=== PATIENT | male | born 1965 | race Caucasian/White ===

== ENCOUNTER 2020-02-14 01:41 | Outpatient (CLI) | payer OTHER, SELFPAY ==
[2020-02-14 18:59] LABS: SARS-CoV-2 RNA PCR Negative
== END 2020-02-14 01:42 | disposition home or self-care (01) ==
LOC: ANHCOVIDDT 01:42
PROVIDERS: Visit Provider Internal Medicine Cardiovascular Disease
DX: Z01.818 Encounter for other preprocedural examination (principal); Z20.828 Contact with and (suspected) exposure to other viral communicable diseases
CPT/HCPCS: 87635; C9803; U0003

== ENCOUNTER 2020-02-18 01:18 | Day surgery (SDC) | payer OTHER, SELFPAY ==
[2020-02-17 14:36] VITALS: BMI 29.0
[2020-02-18] VITALS (7 sets, daily range): BP systolic 121–140; BP diastolic 66–92; PULSE 50–79; RESP 14–25; TEMP 36.2–36.7; O2SAT 95–99; BMI 29.4
[2020-02-18 09:23] LABS: Anion Gap 6 mmol/L (8-16); Blood Urea Nitrogen 15 mg/dL (9-20); Calcium 9.2 mg/dL (8.4-10.2); Carbon Dioxide 30 mmol/L (22-30); Chloride 100 mmol/L (98-107); Estimated CRCL calculation 120 ml/min; Estimated Glomerular Filt Rate > 60; Glucose 111 mg/dL (75-110); Sodium 136 mmol/L (137-145)
--- NOTE | 2020-02-18 09:56 | WPDANESEPPF ---
Anes - Initial Pre Proc Eval Procedure: Operation Date: 02/18/20 10:00 Proposed Procedures p Trans Esophageal Echo - Denilson Florez MD s Electrical Cardioversion - Denilson Florez MD Date/Time: 02/18/20 09:56 Surgeon: Denilson Florez MD Pre Op Diagnosis: AFib Patient Data Age: 54 Gender: M Height: 6 ft 1 in Weight: 101.2 kg Last Vital Signs Temp 98.0 F 02/18/20 09:00 Pulse 72 02/18/20 09:00 Resp 16 02/18/20 09:00 BP 125/83 02/18/20 09:00 Pulse Ox 95 02/18/20 09:00 Allergies Allergy/AdvReac Type Severity Reaction Status Date / Time No Known Allergies Allergy Verified 02/17/20 14:45 Home Medications Medication Instructions Recorded Confirmed Type amlodipine-benazepril 1 cap PO HS 02/17/20 02/17/20 History aspirin 81 mg PO HS 02/17/20 02/17/20 History metoprolol tartrate 50 mg PO HS 02/17/20 02/17/20 History rivaroxaban [Xarelto] 20 mg PO QPM 02/17/20 02/17/20 History rosuvastatin 40 mg PO HS 02/17/20 02/17/20 History Laboratory Tests 02/18/20 09:02 Sodium 136 mmol/L L mmol/L (137-145) Potassium 4.0 mmol/L mmol/L (3.4-5.0) Chloride 100 mmol/L mmol/L (98-107) Carbon Dioxide 30 mmol/L mmol/L (22-30) Anion Gap 6 mmol/L L mmol/L (8-16) BUN 15 mg/dL mg/dL (9-20) Creatinine 0.70 mg/dL mg/dL (0.7-1.3) Estim Creat Clear Calc 120 ml/min ml/min Estimated GFR > 60 (59 - ) Glucose 111 mg/dL H mg/dL (75-110) Calcium 9.2 mg/dL mg/dL (8.4-10.2) Magnesium 2.0 mg/dL mg/dL (1.6-2.3) Patient hx anesthesia problems: none Family hx anesthesia problems: none [facility] Past Medical History Medical History (Updated 02/18/20 @ 09:56 by Elmer Rodas MD) Atrial fibrillation Diabetes Hyperlipidemia Hypertension AUGUSTO (obstructive sleep apnea) Social History Social History Years smoked: 5 Smoking status: Former smoker Tobacco type: cigarettes Smoking end date: 02/26/02 Alcohol intake: current Drinks per week: 10 Alcohol use details: beer and wine Substance use type: marijuana Living arrangements: with family Gender identity (if verbalized by the patient): Male Sexual Orientation (if Verbalized by the Patient): Straight or Heterosexual Spiritual care concerns: No Anes - Eval Final PreProcedure Day of Procedure 02/18/20 09:56 Patient weight: overweight Heart: regular rate and rhythm Lungs: clear to auscultation Airway: Mallampati scale class II Neurological: alert and oriented Last oral intake: >/= 8 hours ASA classification: III Emergent: no Anesthetic plan: proceed Anesthesia type and monitoring: general GIVS and standard monitoring Informed Consent: The patient's anesthetic plan and its attendant risks and benefits were discussed with the patient/family/POA. Questions were solicited and answers provided to the satisfaction of the patient/family/POA.
--- NOTE | 2020-02-18 09:57 | WPDHPUPDATE1 ---
History and Physical Update Update Date/Time: 02/18/20 09:57 History and Physical has been reviewed, including an updated exam of the patient. There are NO changes in the patient's condition. Risks, benefits, and alternatives have been discussed and questions answered. Patient agrees to proceed with procedure.
--- NOTE | 2020-02-18 09:57 | WPDTECDV ---
STARLA with Cardioversion Date of procedure: 02/18/20 Procedure Type: Transesophageal echocardiogram guided elective electrical cardioversion Diagnosis: Atrial fibrillation Indications: Atrial fibrillation Description of Procedure: Brief history present illness: Patient is a pleasant 54-year-old male with a history of CAD, hypertension, dyslipidemia, AUGUSTO on CPAP, and diabetes mellitus with recent diagnosis symptomatic atrial fibrillation with fatigue, shortness of breath, chest pain and lightheadedness despite rate control referred for transesophageal echocardiogram-guided elective electrical cardioversion in attempt to restore sinus rhythm. Procedure in detail: After verbal and written informed consent was obtained the patient risks, benefits, and alternatives explained in detail the patient agreed to proceed with the plan of care as outlined above. Patient was evaluated at bedside in the PACU . On examination, neck was supple with normal range of motion, no restrictions to opening of the oral cavity, jaw angle and posterior hypopharynx was clear. Lungs were clear to auscultation. Patient was placed in appropriate 30 to 45 degree angle in a supine, slight left lateral decubitus position. Patient was monitored throughout the study with telemetry, oxygen saturation, end-tidal CO2 monitoring, blood pressure, heart rate, and respirations. Anterior and posterior defibrillator pads placed in the appropriate positions. The posterior hypopharynx was then locally anesthetized using repeated administration of Hurricaine spray as well as gargled viscous lidocaine. After the oral bite block placed and adequate anesthesia administered by Anesthesiology, the transesophageal echocardiogram probe was advanced through the oral bite block, into the posterior hypopharynx and into the esophagus easily and without complication. Multiple, multiplanar echocardiographic images were obtained in multiple standard re-projections. Pulsed wave, continuous-wave, and color-flow Doppler were utilized in conjunction with this study. At the conclusion of the study, the transesophageal echocardiogram probe was removed easily and without complication. Patient tolerated the procedure well without difficulty. Patient was in atrial fibrillation throughout the study. Sedation: Moderate Sedation/Anesthesia administration: Patient denied previous intolerance or complications with anesthesia/sedation. Please see Anesthesiology documentation for sedation protocol and details. There were no other issues or complications and patient tolerated the procedure well and sedation protocol well and I was present for the entirety. Anesthesiology was responsible for periprocedural monitoring and sedation administration. Findings: Findings: Left ventricular and right ventricular size and systolic function within normal limits with visually estimated left ventricular ejection fraction of 55% without wall motion abnormality. Mild concentric left ventricular hypertrophy noted. Mild to moderate enlargement of the left atrium with preserved right atrial size noted. Interatrial septum anatomically normal without evidence of shunt with color-flow Doppler nor with injection of agitated saline. Mitral and tricuspid valve are anatomically normal with normal leaflet excursion. Mild tricuspid regurgitation with 2 separate regurgitant jets identified. Trivial tricuspid regurgitation. Unable to estimate RVSP due to poor spectral resolution of tricuspid regurgitant jet velocity. Minimal mitral annular calcification. No mobile elements identified. Aortic valve was anatomically normal 3 leaflet structure with normal leaflet excursion and trivial regurgitation. Pulmonic valve was not well visualized, however, trivial regurgitation was identified. Left atrial appendage was an anatomically normal structure with prominent pectinate muscles without thrombus or vegetation identified. Left atrial appendage velocities averaged approximat
--- NOTE | 2020-02-18 10:22 | ECG_ITS ---
Measurements Intervals [place] Rate: 60 P: NM: 0 QRS: 41 QRSD: 103 T: 21 QT: 404 QTc: 405 Interpretive Statements ATRIAL FIBRILLATION ABNORMAL ECG Electronically Signed On 02-18-2020 10:53:07 [employer] by Nithin Cho D.O.
--- NOTE | 2020-02-18 10:28 | ECG_ITS ---
Measurements Intervals [place] Rate: 48 P: 13 IN: 159 QRS: 40 QRSD: 105 T: 31 QT: 449 QTc: 405 Interpretive Statements SINUS BRADYCARDIA ABNORMAL ECG Electronically Signed On 02-20-2020 10:59:56 [employer] by Nithin Cho D.O.
--- NOTE | 2020-02-18 12:01 | SUR.PHASEII ---
1200 Reviewed d/c instructions with patient, questions answered, he verbalized understanding, Pt transported [facility] via wheelchair where his girlfriend picked him up and drove him home in a private vehicle.
== END 2020-02-18 12:00 | disposition home or self-care (01) ==
PROVIDERS: PCP Nurse Practitioner Family; Visit Provider Internal Medicine Cardiovascular Disease
PROC: (CPT 93312; principal; 2020-02-18 10:00)
PROC: 5A2204Z Restoration of Cardiac Rhythm, Single (ICD-10-PCS; 2020-02-18 10:00)
DX: I48.91 Unspecified atrial fibrillation (principal); R06.02 Shortness of breath; R07.9 Chest pain, unspecified; R53.83 Other fatigue; I25.10 Atherosclerotic heart disease of native coronary artery without angina pectoris; I10 Essential (primary) hypertension; E78.5 Hyperlipidemia, unspecified; G47.33 Obstructive sleep apnea (adult) (pediatric); E11.9 Type 2 diabetes mellitus without complications; Z79.01 Long term (current) use of anticoagulants; Z79.82 Long term (current) use of aspirin; Z87.891 Personal history of nicotine dependence
CPT/HCPCS: 36415; 80048; 83735; 92960; 93005; 93312; 93320; 93325; J2704; J7040

== ENCOUNTER 2022-09-22 02:11 | Day surgery (SDC) | payer OTHER, SELFPAY ==
[2022-09-15 15:25] VITALS: BMI 31.6
--- NOTE | 2022-09-21 15:06 | PM.HPGS ---
History of Present Illness History of Present Illness Consent: Risks, benefits, and alternatives have been discussed and questions answered. Patient agrees to proceed with procedure. Chief complaint: Hx of colon polyps Narrative: Dario Hammond is a 57 year old male Referred for colon cancer screening. He has had a polyp removed in the past. Review of Systems Review of Systems: All systems reviewed & are unremarkable except as noted in HPI and below PMFSH Past Medical History Medical History Atrial fibrillation Diabetes Hyperlipidemia Hypertension AUGUSTO (obstructive sleep apnea) Social History Social History Smoking packs per day: 1 Smoking cigarettes per day: 20.0 Years smoked: 20 Smoking pack-years: 20.00 Smoking status: Former smoker Tobacco type: cigarettes Smoking end date: 02/26/02 Alcohol intake: current Drinks per week: 6 Alcohol use details: BEERS/DRINKS Substance use: never Substance use type: does not use Living arrangements: with family Gender identity (if verbalized by the patient): Male Sexual Orientation (if Verbalized by the Patient): Straight or Heterosexual Spiritual care concerns: No Meds Home Medications and Allergies Home Medications Medication Instructions Recorded Confirmed Type amlodipine 10 mg-benazepril 20 mg 1 cap PO HS 02/17/20 09/22/22 History capsule aspirin 81 mg tablet 81 mg PO HS 02/17/20 09/22/22 History metoprolol tartrate 50 mg tablet 50 mg PO HS 02/17/20 09/22/22 History rivaroxaban 20 mg tablet (Xarelto) 20 mg PO QPM 02/17/20 09/22/22 History rosuvastatin 40 mg tablet 40 mg PO HS 02/17/20 09/22/22 History omega-3 fatty acids 1 cap PO DAILY 09/15/22 09/22/22 History omeprazole 20 mg capsule,delayed 20 mg PO 4XW 09/15/22 09/22/22 History release tadalafil 20 mg tablet (Cialis) 20 mg PO DAILY PRN Erectile 09/15/22 09/22/22 History Dysfunction Allergies Allergy/AdvReac Type Severity Reaction Status Date / Time No Known Allergies Allergy Verified 09/22/22 06:46 Exam Const: General: alert Orientation/consciousness: patient oriented x3 Resp: Auscultation: clear to auscultation bilaterally Cardio: Rhythm: regular rhythm GI: GI Palp: Yes Soft to palpation and No Tenderness to palpation present (GI) Neuro: General: patient oriented x3 Assessment and Plan Assessment and plan (1) Colon cancer screening: Code(s): Z12.11 - Encounter for screening for malignant neoplasm of colon Status: Acute Assessment and Plan: Colonoscopy with possible biopsy or polypectomy or cautery or injection of substances.
[2022-09-22 06:48] VITALS: BP 151/103; PULSE 66; RESP 20; TEMP 36.2; BMI 32.2
[2022-09-22] MEDS: LACTATED RINGERS 1,000 ML 150 ML IV CONT (06:51)
--- NOTE | 2022-09-22 07:45 | P.PNAN_ITS ---
Anes - Initial Pre Proc Eval Procedure: Operation Date: 09/22/22 08:00 Proposed Procedures p Colonoscopy - Lloyd De Anda MD Date/Time: 09/22/22 07:45 Surgeon: Lloyd De Anda MD Pre Op Diagnosis: Hx of colon polyps Patient Data Age: 57 Gender: M Height: 1.85 m Weight: 110.9 kg Last Vital Signs Temp 97.2 F L 09/22/22 06:48 Pulse 66 09/22/22 06:48 Resp 20 09/22/22 06:48 BP 151/103 H 09/22/22 06:48 O2 Del Method Room Air 09/22/22 06:48 Allergies Allergy/AdvReac Type Severity Reaction Status Date / Time No Known Allergies Allergy Verified 09/22/22 06:46 Home Medications Medication Instructions Recorded Confirmed Type amlodipine 10 mg-benazepril 20 mg 1 cap PO HS 02/17/20 09/22/22 History capsule aspirin 81 mg tablet 81 mg PO HS 02/17/20 09/22/22 History metoprolol tartrate 50 mg tablet 50 mg PO HS 02/17/20 09/22/22 History rivaroxaban 20 mg tablet (Xarelto) 20 mg PO QPM 02/17/20 09/22/22 History rosuvastatin 40 mg tablet 40 mg PO HS 02/17/20 09/22/22 History omega-3 fatty acids 1 cap PO DAILY 09/15/22 09/22/22 History omeprazole 20 mg capsule,delayed 20 mg PO 4XW 09/15/22 09/22/22 History release tadalafil 20 mg tablet (Cialis) 20 mg PO DAILY PRN Erectile 09/15/22 09/22/22 History Dysfunction Patient hx anesthesia problems: none Family hx anesthesia problems: none Results Review: All pre-operative results and documents have been reviewed as part of the pre- operative evaluation. [facility] Past Medical History Medical History Atrial fibrillation Diabetes Hyperlipidemia Hypertension AUGUSTO (obstructive sleep apnea) Social History Social History Smoking packs per day: 1 Smoking cigarettes per day: 20.0 Years smoked: 20 Smoking pack-years: 20.00 Smoking status: Former smoker Tobacco type: cigarettes Smoking end date: 02/26/02 Alcohol intake: current Drinks per week: 6 Alcohol use details: BEERS/DRINKS Substance use: never Substance use type: does not use Living arrangements: with family Gender identity (if verbalized by the patient): Male Sexual Orientation (if Verbalized by the Patient): Straight or Heterosexual Spiritual care concerns: No Anes - Eval Final PreProcedure Day of Procedure 09/22/22 07:45 Patient weight: normal Heart: regular rate and rhythm Lungs: clear to auscultation Airway: Mallampati scale class III Neurological: alert and oriented Last oral intake: >/= 8 hours ASA classification: III Emergent: no Anesthetic plan: proceed Anesthesia type and monitoring: general GIVS and standard monitoring Results Review: All pre-operative results and documents have been reviewed as part of the pre- operative evaluation. Informed Consent: The patient's anesthetic plan and its attendant risks and benefits were discussed with the patient/family/POA. Questions were solicited and answers provided to the satisfaction of the patient/family/POA.
[2022-09-22 08:19] VITALS: BP 115/84; PULSE 62; RESP 18; O2SAT 99
[2022-09-22 08:29] VITALS: BP 121/70; PULSE 61; RESP 24; O2SAT 99
[2022-09-22 08:39] VITALS: BP 135/86; PULSE 58; RESP 22; O2SAT 96
== END 2022-09-22 08:42 | disposition home or self-care (01) ==
PROVIDERS: PCP Nurse Practitioner Family; Visit Provider Internal Medicine Gastroenterology
PROC: 0DJD8ZZ Inspection of Lower Intestinal Tract, Via Natural or Artificial Opening Endoscopic (ICD-10-PCS; CPT 45378; principal; 2022-09-22 08:00)
DX: Z12.11 Encounter for screening for malignant neoplasm of colon (principal); Z86.010 Personal history of colon polyps; I48.91 Unspecified atrial fibrillation; I10 Essential (primary) hypertension; E78.5 Hyperlipidemia, unspecified; E11.9 Type 2 diabetes mellitus without complications; G47.33 Obstructive sleep apnea (adult) (pediatric); Z87.891 Personal history of nicotine dependence; Z79.01 Long term (current) use of anticoagulants; Z79.82 Long term (current) use of aspirin
CPT/HCPCS: 45378; J2704; J7120

== ENCOUNTER 2023-05-29 08:47 | Outpatient (CLI) | payer OTHER, SELFPAY ==
[2023-05-29 09:34] LABS: Hematocrit 45.4 % (42.0-52.0); Hemoglobin 15.8 g/dL (14.0-18.0); Mean Corpuscular HGB Conc 34.8 g/dl (32-36); Mean Corpuscular Hemoglobin 30.3 pg (26-34); Mean Corpuscular Volume 87.1 fl (80-100); Platelet Count Result 210 k/mm3 (150-375); Red Blood Count 5.21 M/mm3 (4.6-6.20); Red Cell Distribution Width 12.7 % (11.5-14.5); White Blood Count 7.5 K/mm3 (4.5-10.0)
[2023-05-29 09:43] LABS: Hemoglobin A1C 6.6 % (<5.7)
[2023-05-29 09:51] LABS: Alanine Aminotransferase 65 U/L (6-50); Albumin Level 4.5 g/dL (3.5-5.1); Alkaline Phosphatase 78 U/L (38-126); Anion Gap 7 mmol/L (4-12); Aspartate Amino Transferase 59 U/L (17-59); Bilirubin,Total 0.7 mg/dL (0.2-1.3); Blood Urea Nitrogen 8 mg/dL (9-20); Calcium 9.3 mg/dL (8.4-10.2); Carbon Dioxide 28 mmol/L (22-30); Chloride 102 mmol/L (98-107); Cholesterol 124 mg/dL (0-200); Estimated Glomerular Filt Rate > 60; Glucose 126 mg/dL (65-110); HDL Direct 49 mg/dL; Potassium 3.9 mmol/L (3.4-5.0); Sodium 137 mmol/L (137-145); Triglycerides 83 mg/dL (<150); Uric Acid 4.3 mg/dL (3.5-8.5)
[2023-05-29 10:02] LABS: LDL Cholesterol Direct 63 mg/dL
[2023-06-01 16:40] LABS: PSA, Total 0.2 ng/mL (<=4.0)
== END 2023-05-29 08:48 | disposition home or self-care (01) ==
PROVIDERS: PCP Nurse Practitioner Family; Visit Provider Nurse Practitioner Family
DX: M10.9 Gout, unspecified (principal); Z13.29 Encounter for screening for other suspected endocrine disorder; Z13.1 Encounter for screening for diabetes mellitus; Z13.220 Encounter for screening for lipoid disorders; Z12.5 Encounter for screening for malignant neoplasm of prostate; Z13.0 Encounter for screening for diseases of the blood and blood-forming organs and certain disorders involving the immune mechanism
CPT/HCPCS: 36415; 80053; 80061; 83036; 84153; 84154; 84443; 84550; 85027

== ENCOUNTER 2024-03-18 08:45 | Emergency (ER) | payer OTHER, SELFPAY ==
--- NOTE | 2024-03-18 08:51 | ED_ITS ---
HPI - URI/Sore Throat General Chief Complaint: Upper Respiratory Infection Stated Complaint: rt ear discomfort,cough,nasal drainage Time Seen by Provider: 03/18/24 08:51 Source: patient Mode of arrival: ambulatory Limitations: no limitations History of Present Illness HPI Narrative: Dario is a 58-year-old male patient presenting to the clinic today with complaints of right ear pain, cough, sore throat, and nasal drainage x3 days. He reports no known fever or chills. Denies any chest pain or shortness of breath. Cough is nonproductive. MD elicited complaint: sore throat and nasal congestion Related Data Home Medications ?Medication ?Instructions ?Recorded ?Confirmed ?Last Taken ?Type amlodipine 10 mg-benazepril 20 mg 1 cap PO HS 02/17/20 02/21/24 09/21/22 History capsule aspirin 81 mg tablet 81 mg PO HS 02/17/20 02/21/24 09/21/22 History rivaroxaban 20 mg tablet (Xarelto) 20 mg PO QPM 02/17/20 02/21/24 09/19/22 History rosuvastatin 40 mg tablet 40 mg PO HS 02/17/20 02/21/24 09/21/22 History tadalafil 20 mg tablet (Cialis) 20 mg PO DAILY PRN Erectile 09/15/22 02/21/24 09/21/22 History Dysfunction coenzyme Q10 100 mg tablet 100 mg PO DAILY 05/22/23 02/21/24 Unknown History nitroglycerin 0.4 mg sublingual 0.4 mg sublingual Q5M PRN 05/22/23 02/21/24 Unknown History tablet turmeric root extract 1,053 mg 2,250 mg PO DAILY 05/22/23 02/21/24 Unknown History tablet Allergies Allergy/AdvReac Type Severity Reaction Status Date / Time No Known Allergies Allergy Verified 03/18/24 09:01 Review of Systems Review of Systems: Pertinent positives per HPI. Patient denies any fever, chills, rash, headache, visual changes, dizziness, shortness of breath, chest pain, palpitations, nausea, vomiting, diarrhea, constipation, abdominal pain, or any urinary issues. [facility] Past Medical History Medical History Osteoarthritis, knee Screening for prostate cancer Gout Lipoma of arm CAD (coronary artery disease) Myocardial infarction due to atherothrombotic coronary artery disease Pain in left knee Chest pain Sleep apnea Vertigo Indigestion Stable angina AUGUSTO (obstructive sleep apnea) Hypertension Hyperlipidemia Diabetes Atrial fibrillation Surgical History Surgical History History of radiofrequency ablation (RFA) procedure for cardiac arrhythmia H/O colonoscopy 2018 rpt 5 years S/P left knee arthroscopy Family History Family History Father Diabetes mellitus Hypertension Heart disease Sibling Hypertension Cerebrovascular accident Grandparent Brain cancer Social History Social History Smoking packs per day: 1 Smoking cigarettes per day: 20.0 Years smoked: 20 Smoking pack-years: 20.00 Smoking status: Former smoker Tobacco type: cigarettes Smoking end date: 02/26/02 Alcohol intake: current Drinks per week: 6 Alcohol use details: BEERS/DRINKS Substance use: never Substance use type: does not use Do You Feel Safe in your Home?: Yes Lack of Transportation: No Lack of Food: Never True Current Housing: I Have Housing Concerned About Future Housing: No Difficulty Paying Gas/Electric Bills: No Difficulty Paying for Meds: No Currently Unemployed: No Education: Don't Know Difficulty w/ Childcare or Family Care: No Living arrangements: with family Gender identity (if verbalized by the patient): Male Sexual Orientation (if Verbalized by the Patient): Straight or Heterosexual Spiritual care concerns: No Comments At the time of my signature, I reviewed and agree with the nursing past medical, surgical, social, and family history. There is no relevant family history pertinent to the patient complaint. Exam Narrative: General: Well-developed, well nourished, in no apparent distress Head: Normocephalic, atraumatic Eyes: Pupils equally round and reactive to light bilaterally, EOM intact, sclera and conjunctive clear, no discharge, lids normal Ears: Left TMs intact, opaque, mild bulging, congested, right TM intact, bulging, red, ear canals clear, no drainage, grossly hearing normal. Nose: Nares patent, green nasal discharge, mild inflammation, no sinus tenderness. Mouth: Oral pharynx red without lesions or masses, good dentition, MMM. Postnasal drip Neck: Supple, trachea midline, no enlargement of anterior or posterior cervical nodes, no thyroid masses or goiter palpable. Cardio: Regular rate and rhythm, s1 and s2 normal, no murmur appreciated. Resp: Clear to auscultation bilaterally, no rhonchi, rales, wheezing or rubs Course Course Emergency Course: Portions of this record may have been created with voice recognition software. Level of Care: Express Care Visit Vital Signs Vital signs: Vital Signs Temperature 36.8 C 03/18/24 08:57 Pulse Rate 75 03/18/24 08:57 Respiratory Rate 18 03/18/24 08:57 Blood Pressure 146/90 H 03/18/24 08:57 Pulse Oximetry 98 03/18/24 08:57 Oxygen Delivery Room Air 03/18/24 08:57 Temperature 36.8 C 03/18/24 08:57 Pulse Rate 75 03/18/24 08:57 Respiratory Rate 18 03/18/24 08:57 Blood Pressure 146/90 H 03/18/24 08:57 Pulse Oximetry 98 03/18/24 08:57 Oxygen Delivery Room Air 03/18/24 08:57 Vital signs reviewed MDM - URI/Sore Throat MDM Narrative Medical decision making narrative: At the time of visit patient is resting comfortably on the exam table. Patient appears to be nontoxic. Plan: I suspect patient has URI/pharyngitis/right otitis media. Prescription for amoxicillin and prednisone was sent to the pharmacy. Supportive measures were discussed with the patient and they voiced understanding discharge instructions and agrees to treatment plan. Return precautions reviewed Differential Diagnosis Differential diagnosis: Likely upper respiratory infection, otitis media, sinusitis, viral infection, bronchitis, influenza, pharyngitis and other (COVID) Discharge Plan Discharge Clinical Impression: URI (upper respiratory infection) Qualifiers: URI type: unspecified URI Qualified Code(s): J06.9 - Acute upper respiratory infection, unspecified Otitis media Qualifiers: Otitis media type: suppurative Chronicity: acute Laterality: right Recurrence: non-recurrent Spontaneous tympanic membrane rupture: without spontaneous rupture Qualified Code(s): H66.001 - Acute suppurative otitis media without spontaneous rupture of ear drum, right ear Pharyngitis Qualifiers: Pharyngitis/tonsillitis etiology: unspecified etiology Qualified Code(s): J02.9 - Acute pharyngitis, unspecified Patient Disposition: Home, Self-Care Condition: Stable Instructions: Antibiotic Form, Pharyngitis (ED), Ear Infection (ED), Upper Respiratory Infection (ED) Additional Instructions: Take prescription medications only as prescribed-amoxicillin and prednisone Increase fluids and stay well hydrated Tylenol/motrin for pain/fever Flonase and OTC antihistamines as directed Vicks vapor rub to open sinuses Sinus rinses for congestion Cepacol spray, cough drops, throat lozenges, warm tea with honey/lemon, gargle salt water to soothe throat BRAT diet for diarrhea Clear liquids x 24 hours then advance as tolerated for nausea/vomiting Go to the ED if you develop a worsening in your condition- high fever not controlled by Tylenol or Motrin, dehydration, weakness, lethargy, shortness of breath, or chest pain. Follow up with your PCP in 3-5 days if symptoms persist. Patient Language: Prydeinig Prescriptions: New prednisone 20 mg tablet 40 mg PO DAILY 5 Days Qty: 10 0RF amoxicillin 875 mg tablet 875 mg PO Q12H 10 Days Qty: 20 0RF No Action oxycodone 5 mg tablet 5 mg PO Q8H PRN (Reason: pain) Qty: 20 0RF turmeric root extract 1,053 mg tablet 2,250 mg PO DAILY coenzyme Q10 100 mg tablet 100 mg PO DAILY nitroglycerin 0.4 mg tablet, sublingual 0.4 mg sublingual Q5M PRN Rx Instructions: do not exceed 3 doses per episode aspirin 81 mg Tablet 81 mg PO HS amlodipine-benazepril 10-20 mg Capsule 1 cap PO HS rosuvastatin 40 mg Tablet 40 mg PO HS Xarelto 20 mg Tablet 20 mg PO QPM tadalafil [Cialis] 20 mg Tablet 20 mg PO DAILY PRN (Reason: Erectile Dysfunction) Rx Instructions: administer approximately 30min before sexual activity; do not use more than 1 dose per 24hrs (DME) Blood Glucose Test Strip See Rx Instructions .Route Qty: 90 3RF Rx Instructions: Test fasting glucose daily and record (DME) blood-glucose meter Kit See Rx Instructions .Route Qty: 1 0RF Rx Instructions: Use to check fasting glucose daily and record (DME) lancets 33 gauge misc See Rx Instructions .Route Qty: 100 3RF Rx Instructions: Test fasting glucose daily and record allopurinol 100 mg tablet 100 mg PO DAILY Qty: 90 1RF Jardiance 10 mg tablet 10 mg PO DAILY Qty: 90 1RF Follow-up/Referrals: Val Menendez APRN [Primary Care Provider] - Time of Disposition: 09:02 Quality NIHSS Nursing Documentation ED NIHSS nursing documentation: reviewed/agree
[2024-03-18 08:57] VITALS: BP 146/90; PULSE 75; RESP 18; TEMP 36.8; O2SAT 98
--- OUTSIDE RECORDS SUMMARY | 2024-03-20 16:21 | XMS_ITS | Referral Summary ---
Author Organization 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 Name Role Phone Val Menendez [employer] Primary Care Provider + Lisa Carty NP Unavailable Allergies No known active allergies Medications amLODIPine-holly zepriL (LOTREL) 10-20 mg per capsule Take 1 capsule by mouth daily 02/11/2020 Active rosuvastatin (CRESTOR) 40 mg tablet Take 1 tablet (40 mg total) by mouth daily 12/16/2019 Active aspirin (Adult Low Dose Aspirin) 81 mg enteric coated tablet Take 1 tablet (81 mg total) by mouth daily 02/12/2020 Active celecoxib (CeleBREX) 200 mg capsule 02/09/2022 Active allopurinoL (ZYLOPRIM) 100 mg tablet Take 1 tablet (100 mg total) by mouth daily Active Xarelto 20 mg tablet TAKE 1 TABLET DAILY 90 tablet 3 05/21/2023 Active Active Problems Problem Noted Date Diagnosed Date Morbid (severe) obesity due to excess calories 0 05/03/2023 Other thrombophilia 05/03/2023 Chronic anticoagulation 08/17/2020 [place] on CPAP 08/17/2020 Medication side effects 04/12/2020 Status post ablation of atrial fibrillation 03/29 Atrial fibrillation ([facility]) 02/13/2020 Coronary artery disease 02/13/2020 Hypertension associated with diabetes 02/13/2020 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 2 diabetes mellitus ([facility]) 02/13/2020 Resolved Problems Problem Noted Date Diagnosed Date Resolved Date Mixed hyperlipidemia 02/23/2021 023 Dyslipidemia 08/17/2020 02/23/2021 Social History Tobacco Use Types Packs/Day Years Used Date Smoking Tobacco: Former Smokeless Tobacco: Never Alcohol Use Standard Drinks/Week Comments Yes 0 (1 standard drink = 0.6 oz pur e alcohol) Personal Safety Answer Date Recorded Getting School Help Needed Not on file 02/20 Sex and Gender Information Value Date Recorded Sex Assigned at Not on file Legal Sex Male 10:40 AM [employer] Gender Identity Not on file Sexual Orientation Not on file Last Filed Vital Signs Vital Sign Reading Time Taken Comments Blood Pressure 128/78 05/03/2023 9:21 AM [employer] Pulse 64 05/03/2023 9:21 AM [employer] Temperature 36.8 ??C (98.3 ??F) 04/23/2020 8:40 AM CS T Respiratory Rate 16 03/02/2021 3:36 PM [employer] Oxygen Saturation 97% 05/03/2023 9:21 AM [employer] Inhaled Oxygen Concentration - - Weight 122.2 kg (269 lb 6.4 oz) 05/03/2023 9:21 AM [employer] Height 185.4 cm (6' 1 ) 05/03/2023 9:21 AM [employer] Body Mass Index 35.54 05/03/2023 9:21 AM [employer] Plan of Treatment Not on file Medical Devices Implanted Type Area Performance Improvement Analyst Device Identifier Shelf Expiration Date Model / Serial / Lot [employer] [id number] System 6-12fr Mvp Venous Closure Vascade - [id number] - [id number] Implanted:Qty : 1 on 04/22/2020 by Hayder Feldman MD at [facility] Collagen Left: Femoral [employer] 03/03/2022 800-612C- 10U / [id number] / [id number] [employer] [id number] System 6-12fr Mvp Venous Closure Vascade - [id number] - [id number] Implanted:Qty : 1 on 04/22/2020 by Hayder Feldman MD at [facility] Collagen Left: Femoral [employer] 03/03/2022 800-612C- 10U / [id number] / [id number] [employer] [id number] System 6-12fr Mvp Venous Closure Vascade - [id number] - [id number] Implanted:Qty : 1 on 04/22/2020 by Hayder Feldman MD at [facility] Collagen Right: Femoral [employer] 03/03/2022 800-612C- 10U / [id number] / [id number] [employer] [id number] Device Closure Vascade Od5 Fr Femoral Artery - [id number] - [id number] Implanted:Qty : 1 on 04/22/2020 by Hayder Feldman MD at [facility] Collagen Right: Femoral [employer] 11/10/2021 [id number] -[id number] / [id number] / [id number] Procedures Procedure Name Priority Date/Time Associated Diagnosis Comments POCT LIPID PANEL Routine 05/03/2023 10:0 7 AM [employer] Coronary artery disease involving [place] coronary artery of [place]oksack heart without angina pectoris EGFR STAT 04/22/2020 7:23 AM [employer] from Last 3 Months or Most Recently Relevant to Health Maintenance Results * POCT lipid panel (05/03/2023 10:07 AM [employer]) Cholesterol, POC 124 mg/dL Comment:GLU = 157 HDL, POC 41 mg/dL Triglycerides, POC 121 mg/dL LDL Cholesterol POC 59 mg/dL Chol/HDL Ratio, POC 1.4 Non-HDL Cholesterol, POC 83 mg/dL Cholesterol Total, POC 124 mg/dL Capillary blood 05/03/2023 1 0:07 AM [employer] Denilson Florez MD POINT OF CARE TEST ORDER RAMON Final Result * eGFR (04/22/2020 7:23 AM [employer]) Pathologist [facility] eGFR 104 mL/min/1.7 3 m2 [facility] Comment: Interpretive Data Reference Interval Normal ?>/= 90 mL/min/1.73m2 Mildly decreased* ? 60 - 89 mL/min/1.73m2 Mildly to moderately decreased ?45 - 59 mL/min/1.73m2 Moderately to severely decreased ??30 - 44 mL/min/1.73m2 Severely decreased ?15 - 29 mL/min/1.73m2 Kidney Failure ?< 15 ??mL/min/1.73m2 *Relative to young adult level Estimated glomerular filtration rate is determined by the CKD-EPI equation recommended by the National Kidney Foundation (KDIGO 2012 Clinical Practice Guideline for the Evaluation and Management of Chronic Kidney Disease. Kidney Intnl Suppl Feb 2012;3:1). The CKD-EPI equation should not be used for patients with unstable renal function and has not been validated in children and those over 70. 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
--- OUTSIDE RECORDS SUMMARY | 2024-03-20 16:21 | XMS_ITS | Data Portability ---
Author Organization [facility], Main Office Address [address] [place] [address] Care Team Providers Care Belt Weaver Name Role Phone VAL BROOKS Primary Care Provider VAL BROOKS Referring Provider [phone] Assessment Encounter Date Assessment Date Assessment LastModified by Organization Details LastModified Time 02/15/2023 02/15/2023 D/w pt about his findings and further plan of care. Will do x-rays. Meds as directed. Ice pack as directed prn. RICE explained in detail. Advised to avoid any strenuous activities/lifting -pushing until cleared. Educated pt about alarming symptoms to monitor at home and call us back or get checked in ED. F/u in 2 weeks. [email or web address] Not available 02/15/2023 10:01:20 04/30/2023 04/30/2023 Assessment: Severe OSAHS, AHI = 36 PLMD Hypoventilation Plan: The following were reviewed and explained to the patient: primary care/referral note [facility] home sleep study 08/18/22 AHI = 36, supine AHI = 60 PAP compliance downloaded and interpreted x 20 minutes. Data reviewed and explained to the patient. Average apnea/hypopnea index (AHI) is 0.5. Patient used PAP > 4 hours 96% of the time. PAP is set at [id number]. PAP will be reset at 11-15 cmH2O. Oxygen supplementation: none Patient is benefiting from PAP therapy. Encouraged patient to maintain PAP use more than 70% of the time. Statement of PAP use and benefits will be sent to the home care store. Educated the patient on problems and solutions associated with positive airway pressure (PAP) use. Difficulty tolerating pressure, mask leaks, intolerance of interface, nasal congestion, claustrophobic response, dry mouth, and unintentional mask removal during sleep were covered. Dry mouth is a normal occurrence for people who just start out on PAP therapy because they are not used to air blowing in to the throat to hold open. Dry mouth is exacerbated for people who wear nasal PAP mask and whose jaw drops open during sleep. Not only does this create a much less efficient therapy because of leakage, it also causes dry mouth. There are a couple solutions to help prevent this type of problem. A simple solution would be to wear a chinstrap which essentially holds the jaw in place. A second solution would be a switch to a full face mask which covers both the nose and mouth. Although this is another easy solution, using a full face mask for some could seem claustrophobic or confining. There is no silver bullet solution as no single mask is right for everybody. Sometimes it takes a bit of experimentation to find a PAP mask which best meets the patient's needs as well as fits comfortably. Another tactic is to use a humidifier on your PAP machine. Most new PAP machines have integrated humidifiers. Humidification is joya when dealing with symptoms of dry mouth because the humidifier can supply both warm and room temperate air. Even a small amount of humidity in the airflow will help nasal passages to stay hydrated. If a person is using both a full face mask and a PAP machine with a heated humidifier and is still experiencing dry mouth, an ill-fitted PAP mask might be causing the problem. Leakage can be caused by a mask that is to large or small, the wrong style mask, the cushion is degraded or simply because the mask's straps aren't adjusted correctly. If leakage occurs, dry air from the room can leak in while humidification escapes. The result is reduced humidification within the circuit and resulting in dry throat and mouth. Finally, beyond factors involving the PAP machine and mask, dry mouth can also be caused or worsened by dehydration. The general recommendation to during eight 8 oz. glasses of water a day might be too little for many people. When people drink large amounts of coffee or other caffeine beverages, or sweat a lot during the day, making sure to rehydrate is an important part of PAP therapy. ResMed Air Sense 11 auto set unit with heated humidifier and supplies at 11-15 cmH2O ordered. Further titration will be based on clinical response. Provided the patient with a list of local home care stores where positive airway pressure (PAP) units, accoutrement, and services are available. Home care store selection is based on patient's insurance carrier. Patient will setup an appointment with [facility] for supplies and pressure adjustments. A major predictor of success with use of PAP is follow-up with both the respiratory supplier and the treating physician. The respiratory supplier optimally will follow-up within two weeks after starting use while the treating physician optimally will follow-up within 90 days after starting therapy to assess adherence and effectiveness of treatment. The download results can show the treating physician information about adherence to treatment, residual AHI while on treatment and presence of large mask leakage. This information is especially helpful if the patient has residual sleepiness despite treatment. General information on sleep disordered breathing, evaluation of sleep disordered breathing, treatment with PAP therapy, and living with PAP therapy were covered. We discussed with the patient the impact of weight on: Sleep disordered breathing Hypertension Hyperlipidemia CAD Transaminitis Gout Low back pain We discussed with the patient the benefit of PAP therapy on: Sleep disordered breathing Hypertension OK Atrial fibrillation Educated the patient on sleep hygiene measures. Relaxing rituals to rest easy, understanding foods with positive and negative impact on sleep, creating a peaceful sleep environment, timing of exercise, using herbal sleep aids, and practicing sleep-friendly meditation were covered. To determine how much sleep is needed, the patient will assess where he falls on the spectrum, examine what lifestyle factor such as stress is affecting the quality and quantity of sleep. In general, adults need 7-9 hours of sleep. Educated the patient regarding foods that promote sleep. These include but are not limited to cherries, bananas, toast, oatmeal, and warm milk. Educated the patient regarding foods and drinks to avoid before bedtime. These include but are not limited to aged cheese, chocolate, spicy foods, tomato-based sauces, soy, ginseng tea and processed meat. Advocated influenza vaccination annually and pneumonia vaccination in 2032. Advocated weight loss through diet and exercise. Patient's ideal body weight according to height and gender is up to 195 lbs. Encouraged patient to adjust caloric intake to maintain/achieve ideal body weight, emphasizing on fruits, vegetables, whole grains, and fat-free or low-fat products. These include lean meats, poultry, fish, beans, eggs, and nuts and foods that are low in saturated fats, trans-fats, cholesterol, salt (sodium), and glycemic index. Stressed the importance of regular exercise up to the patient's capacity limits. In this case, we recommend 20 min daily walking, 2 days a week of resistance training. Patient to monitor BP daily and bring records to PCP for further management. Follow-up: 3 months, July 2023 [email or web address] Not available 04/30/2023 10:16:49 Plan of Treatment Reminders Order Date Submit Date Provider Last Modified By Organization Details Last Modified Time Details Appointments None recorded. Lab None recorded. Referral None recorded. Procedures None recorded. Surgeries None recorded. Imaging home sleep study 2022 023 [email or web address] [facility], [address] [place] [address], [address], 4 12:57:08 XR, thoracic spine, 3 view 2022 023 [email or web address], [address] [place] [address] , [place], [address], 3 09:06:05 XR, lumbosacral spine, 4 or more view 2022 023 [email or web address] [address] [facility], [address] [place] [address] , [place], [address], 4 10:00:09 Medication Orders nitroglycer in 0.4 mg sublingual tablet 2022 023 [facility], [address] [place] [address], [address], 3 10:43:24 cyclobenzap rine 10 mg tablet 2022 023 [facility], [address] [place] [address], [address], 3 09:54:07 allopurinol 100 mg tablet 2022 023 [facility], [address] [place] [address], [address], 3 09:54:07 Medrol (Nick) 4 mg tablets in a dose pack 2022 023 [email or web address] [facility], [address] [facility], [place], [address], 12:53:38 Patient TargetsNo targets recorded. Patient Instructions Encounter Date Encounter Id Patient Instructions Last Modified By Organization Details Last Modified Time 06/08/2022 [id number] Fu Prn [email or web address] Not available 06/08 10:36:08 Reason for Referral None Reported. Results Created Date Observation Date Name Description Value Unit Range Abnormal Flag Note LastModifiedBy Organization Detail LastModifiedTime 02/10/20 22 02/09/2022 HEMOG LOBIN A1C HA1C 5.6 % 4.0-6. 0 Diabe jorden Scree chace Crite ezekiel: <5.7% Consi stent with absen ce of diabe jorden 5.7-6 .4% Consi stent with incre ased risk for diabe jorden (pred iabet es) >OR=6 .5% Consi stent with diabe jorden REFER ENCE: Diabe jorden Care 2016, 39(Aguiar ppl.1 ):s13 -s22 Not Available [facility] (Lab) [address] [place], [address], 02/09/2022 22:31:56 02/10/20 22 02/09/2022 PSA SCREE N PSA medicare screen 1.06 NG/mL 0.00-4 .00 Not Available [facility] (Lab) [address] [place], [address], 02/09/2022 21:58:48 02/10/20 22 02/09/2022 TSH W/REF DEEPTI FT4 TSH with reflex free T4 1.030 uIU/m L 0.465- 4.680 Not Available [facility] (Lab) [address] [place], [address], 02/09/2022 21:58:46 02/10/20 22 02/09/2022 COMPR EHENS LEANDRA METAB OLIC PANEL sodium 135 mmol/ L 137-14 5 low Not Available [facility] (Lab) [address] [place], [address], 02/09/2022 21:47:10 02/10/20 22 02/09/2022 COMPR EHENS LEANDRA METAB OLIC PANEL potassium 4.1 mmol/ L 3.5-5. 1 Not Available [facility] (Lab) [address] [place], [address], 02/09/2022 21:47:10 02/10/20 22 02/09/2022 COMPR EHENS LEANDRA METAB OLIC PANEL chloride 102 mmol/ L 98-107 Not Available [facility] (Lab) [address] [place], [address], 02/09/2022 21:47:10 02/10/20 22 02/09/2022 COMPR EHENS LEANDRA METAB OLIC PANEL carbon dioxide 25 mmol/ L 22-30 Not Available [facility] (Lab) [address] [place], [address], 02/09/2022 21:47:10 02/10/20 22 02/09/2022 COMPR EHENS LEANDRA METAB OLIC PANEL anion gap 12.1 mmol/ L 14-22 low Not Available [facility] (Lab) [address] [place], [address], 02/09/2022 21:47:10 02/10/20 22 02/09/2022 COMPR EHENS LEANDRA METAB OLIC PANEL glucose 110 mg/dL 70-99 high Not Available [facility] (Lab) [address] [place], [address], 02/09/2022 21:47:10 02/10/20 22 02/09/2022 COMPR EHENS LEANDRA METAB OLIC PANEL BUN 11 mg/dL 8-19 Not Available [facility] (Lab) [address] [place], [address], 02/09/2022 21:47:10 02/10/20 22 02/09/2022 COMPR EHENS LEANDRA METAB OLIC PANEL creatinine 0.64 mg/dL 0.66-1 .25 low Not Available [facility] (Lab) [address] [place], [address], 02/09/2022 21:47:10 02/10/20 22 02/09/2022 COMPR EHENS LEANDAR METAB OLIC PANEL GFR >60 Refer ence Range : [place] ge GFR Healt hy Adult : >60 mL/mi n/1.7 3 m2 Chron ic Kidne y Disea se: 15-60 mL/mi n/1.7 3 m2 Kidne y Failu re: <15/m L/min /1.73 m2 www.n iddk. nih.g ov The MDRD study equat ion has not been valid ated in child maddy <18 years of age; pregn ant women ; the elder ly >85 years of age; or in some racia l or ethni c subgr oups, such as Hispa nics. Outsi de the valid ated manny eters , estim ated GFR is less accur ate, requi ring clini sudarshan judgm ent on a case- by-ca se basis . Clini sudarshan inter preta tion for other races and ages must be made by the clini carina. The MDRD study equat ion has not been valid ated for the evalu ation of serum creat inine relat ed to nutri yaima l statu s or medic ation usage . For perso ns <18 years of age, a pedia tric GFR calcu lator is avail able on the [facility] websi te: https ://tray w.juvenal cannon.o rg/pr kennyess ional s/kdo qi/gf r_cal culat or Not Available [facility] (Lab) [address] [place], [address], 02/09/2022 21:47:10 02/10/20 22 02/09/2022 COMPR EHENS LEANDRA METAB OLIC PANEL alkaline phosphatase 85 U/L 38-126 Not Available [facility] (Lab) [address] [place], [address], 02/09/2022 21:47:10 02/10/20 22 02/09/2022 COMPR EHENS LEANDRA METAB OLIC PANEL alanine aminotransfe rase 58 U/L 0-50 high Not Available [facility] (Lab) [address] [place], [address], 02/09/2022 21:47:10 02/10/20 22 02/09/2022 COMPR EHENS LEANDRA METAB OLIC PANEL aspartate aminotransfe rase 47 U/L 15-46 high Not Available [facility] (Lab) [address] [place], [address], 02/09/2022 21:47:10 02/10/20 22 02/09/2022 COMPR EHENS LEANDRA METAB OLIC PANEL bilirubin, total 0.80 mg/dL 0.20-1 .30 Not Available [facility] (Lab) [address] [place], [address], 02/09/2022 21:47:10 02/10/20 22 02/09/2022 COMPR EHENS LENADRA METAB OLIC PANEL calcium 9.3 mg/dL 8.4-10 .2 Not Available [facility] (Lab) [address] [place], [address], 02/09/2022 21:47:10 02/10/20 22 02/09/2022 COMPR EHENS LEANDRA METAB OLIC PANEL total protein 7.8 g/dL 6.3-8. 2 Not Available [facility] (Lab) [address] [place], [address], 02/09/2022 21:47:10 02/10/20 22 02/09/2022 COMPR EHENS LEANDRA METAB OLIC PANEL albumin 4.6 g/dL 3.4-5. 0 Not Available [facility] (Lab) [address] [place], [address], 02/09/2022 21:47:10 02/10/20 22 02/09/2022 COMPR EHENS LEANDRA METAB OLIC PANEL globulin 3.2 g/dL 2.6-4. 2 Not Available [facility] (Lab) [address] [place], [address], 02/09/2022 21:47:10 02/10/20 22 02/09/2022 COMPR EHENS LEANDRA METAB OLIC PANEL A/G ratio 1.4 ratio 1.0-2. 0 Not Available [facility] (Lab) [address] [place], [address], 02/09/2022 21:47:10 02/10/20 22 02/09/2022 LIPID PANEL cholesterol 200 mg/dL 140-19 9 high NIH WILLIS NSUS RECOM MENDA TION FOR SALTY STERO L: ADULT CHILD LOW RISK: <200 <170 BORDE RLINE : <200- 239 ----- HIGH RISK: >240 >200 Not Available [facility] (Lab) [address] [place], [address], 02/09/2022 21:47:01 02/10/20 22 02/09/2022 LIPID PANEL triglyceride s 67 mg/dL 0-150 NIH WILLIS NSUS REPOR T RECOM MENDA TION FOR TRIGL YCERI ANTHONY: ADULT CHILD LOW RISK: <150 ----- BODER LINE: 150-1 99 ----- HIGH RISK: >200 ----- Not Available [facility] (Lab) [address] [place], [address], 02/09/2022 21:47:01 02/10/20 22 02/09/2022 LIPID PANEL HDL cholesterol 57 mg/dL 40- Not Available [facility] (Lab) [address] [place] [address], [address], 02/09/2022 21:47:01 02/10/20 22 02/09/2022 LIPID PANEL LDL cholesterol, calculated 130 mg/dL 0-130 NIH WILLIS NSUS REPOR T RECOM MENDA TIONS FOR LDL: ADULT CHILD LOW RISK <130 <110 (OPTI MAL LDL) <100 ----- BORDE RLINE : 130-1 59 ----- HIGH RISK: >160 >130 A TRIGL YCERI DE RESUL T >400 INVAL IDATE S THE CALCU LATIO N FOR LDL FRACT IONAT ION - THE LDL RESUL T WILL NOT BE REPOR EVE. Not Available [facility] (Lab) [address] [place], [address], 02/09/2022 21:47:01 02/10/20 22 02/09/2022 CBC/C OMPLE TE BLD COUNT W/DIF F white blood cells 5.0 x10'3 /uL 4.2-10 .8 Not Available [facility] (Lab) [address] [place], [address], 02/09/2022 21:21:24 02/10/20 22 02/09/2022 CBC/C OMPLE TE BLD COUNT W/DIF F red blood cells 5.20 x10'6 /uL 4.10-5 .80 Not Available [facility] (Lab) [address] [place], [address], 02/09/2022 21:21:24 02/10/20 22 02/09/2022 CBC/C OMPLE TE BLD COUNT W/DIF F hemoglobin 15.8 g/dL 13.2-1 7.0 Not Available [facility] (Lab) [address] [place], [address], 02/09/2022 21:21:24 02/10/20 22 02/09/2022 CBC/C OMPLE TE BLD COUNT W/DIF F hematocrit 48.2 % 39.3-5 0.0 Not Available [facility] (Lab) [address] [place], [address], 02/09/2022 21:21:24 02/10/20 22 02/09/2022 CBC/C OMPLE TE BLD COUNT W/DIF F mean red cell volume 92.7 fL 80.0-9 7.0 Not Available [facility] (Lab) [address] [place], [address], 02/09/2022 21:21:24 02/10/20 22 02/09/2022 CBC/C OMPLE TE BLD COUNT W/DIF F mean red cell hemoglobin 30.4 pg 27.0-3 3.0 Not Available [facility] (Lab) [address] [place], [address], 02/09/2022 21:21:24 02/10/20 22 02/09/2022 CBC/C OMPLE TE BLD COUNT W/DIF F mean RBC HGB concentratio n 32.8 g/dL 31.0-3 6.0 Not Available [facility] (Lab) [address] [place], [address], 02/09/2022 21:21:24 02/10/20 22 02/09/2022 CBC/C OMPLE TE BLD COUNT W/DIF F red cell distribution width 12.7 % 11.8-1 5.5 Not Available [facility] (Lab) [address] [place], [address], 02/09/2022 21:21:24 02/10/20 22 02/09/2022 CBC/C OMPLE TE BLD COUNT W/DIF F platelets 196 x10'3 /uL 150-40 0 Not Available [facility] (Lab) [address] [place], [address], 02/09/2022 21:21:24 02/10/20 22 02/09/2022 CBC/C OMPLE TE BLD COUNT W/DIF F mean platelet volume 11.1 fL 9.0-12 .4 Not Available [facility] (Lab) [address] [place], [address], 02/09/2022 21:21:24 02/10/20 22 02/09/2022 CBC/C OMPLE TE BLD COUNT W/DIF F neutrophils 50.5 % 39.0-7 2.0 Not Available [facility] (Lab) [address] [place], [address], 02/09/2022 21:21:24 02/10/20 22 02/09/2022 CBC/C OMPLE TE BLD COUNT W/DIF F lymphocytes 30.2 % 16.0-4 7.0 Not Available [facility] (Lab) [address] [place], [address], 02/09/2022 21:21:24 02/10/20 22 02/09/2022 CBC/C OMPLE TE BLD COUNT W/DIF F monocytes 16.3 % 5.0-12 .0 high Not Available [facility] (Lab) [address] [place], [address], 02/09/2022 21:21:24 02/10/20 22 02/09/2022 CBC/C OMPLE TE BLD COUNT W/DIF F eosinophils 1.8 % 1.0-7. 0 Not Available [facility] (Lab) [address] [place], [address], 02/09/2022 21:21:24 02/10/20 22 02/09/2022 CBC/C OMPLE TE BLD COUNT W/DIF F basophils 1.0 % 0.0-2. 0 Not Available [facility] (Lab) [address] [place], [address], 02/09/2022 21:21:24 02/10/20 22 02/09/2022 CBC/C OMPLE TE BLD COUNT W/DIF F immature granulocytes 0.2 % 0.00-0 .50 Not Available [facility] (Lab) [address] [place], [address], 02/09/2022 21:21:24 02/10/20 22 02/09/2022 CBC/C OMPLE TE BLD COUNT W/DIF F neutrophils, absolute count 2.54 x10'3 /uL 1.5-8. 0 Not Available [facility] (Lab) [address] [place], [address], 02/09/2022 21:21:24 02/10/20 22 02/09/2022 CBC/C OMPLE TE BLD COUNT W/DIF F lymphocytes, absolute count 1.52 x10'3 /uL 1.07-3 .43 Not Available [facility] (Lab) [address] [place], [address], 02/09/2022 21:21:24 02/10/20 22 02/09/2022 CBC/C OMPLE TE BLD COUNT W/DIF F monocytes, absolute count 0.82 x10'3 /uL 0.29-0 .99 Not Available [facility] (Lab) [address] [place], [address], 02/09/2022 21:21:24 02/10/20 22 02/09/2022 CBC/C OMPLE TE BLD COUNT W/DIF F eosinophils, absolute count 0.09 x10'3 /uL 0.02-0 .53 Not Available [facility] (Lab) [address] [place], [address], 02/09/2022 21:21:24 02/10/20 22 02/09/2022 CBC/C OMPLE TE BLD COUNT W/DIF F basophils, absolute count 0.05 x10'3 /uL 0.01-0 .08 Not Available [facility] (Lab) [address] [place], [address], 02/09/2022 21:21:24 02/10/20 22 02/09/2022 CBC/C OMPLE TE BLD COUNT W/DIF F immature granulocytes ,absolute 0.01 x10'3 /uL 0.00-0 .05 Not Available [facility] (Lab) [address] [place], [address], 02/09/2022 21:21:24 02/10/20 22 02/09/2022 CBC/C OMPLE TE BLD COUNT W/DIF F nucleated red blood cells 0.0 % -0 Not Available [facility] (Lab) [address] [place], [address], 02/09/2022 21:21:24 02/10/20 22 02/09/2022 CBC/C OMPLE TE BLD COUNT W/DIF F NRBC# 0.00 x10'3 /uL Not Available [facility] (Lab) [address] [place], [address], 02/09/2022 21:21:24 08/24/19 23 08/18/2022 home sleep study No observ ation record ed. [email or web address] [facility] [address] [place], [address], 08/29/2022 11:20:20 Result Notes None recorded. Problems Name Problem SNOMED Code Status Onset Date Resolution Date Notes Provider Name and Address Organization Details Recorded Time Obstructive sleep apnea syndrome 75349608 Active 2022 Halima Matos, [facility] [address], [place], [address] , [employer] 3 17:12:35 Chronic back pain 656243982 Active 2022 Van Valente MD [address], [place], [address] , [employer] 3 09:50:34 Gouty arthropathy 547617451 Active 2022 Van Valente MD [address], [address], [place], [address] , [employer] 3 09:51:36 Obesity 882369713 Active 2022 Van Valente MD [address] [place], [address] , [employer] 3 09:54:14 Stable angina 139367788 Active 2018 Not Available [facility] 3 04:49:03 Vertigo 518268392 Active 2021 Not Available [facility] 3 04:49:03 Atrial fibrillation 51565812 Active 2019 Not Available [facility] 3 04:49:03 Hyperlipidemi a 73258140 Active 2019 Not Available [facility] 3 04:49:03 Essential hypertension 87112173 Active 2018 Not Available [facility] 3 04:49:03 Notes:Medical History: Verti go Bruxism Obesity with severe OSAHS, AHI = 36, 08/18/22, on CPAP c/o [facility] Hypertension Hyperlipidemia T2DM CAD s/p OK Atrial fibrillation on Xarelto Transaminitis Gout Low back pain Procedure History: Cardiac catheterizations 2005, 2016 Left knee debridements 2010, 2016 Right wrist lipoma excision 2015 Atrial fibrillation ablation 2021 Occupational History: Retired [employer] Problem Notes None recorded. Procedures Surgical History Date Name Laterality Status Provider Name and Address Organization Details Recorded Time 09/23/19 colonoscopy completed Val Brooks NP [address] [facility], [address], [address], [facility] [employer] 09/22/2022 11:26:24 02/26/19 21 procedure on heart completed Val Nguyen RN [facility] [employer] 06/08/2022 10:09:29 02/26/19 18 colonoscopy completed Not Available Replaced by [facility] 04/27/19 04:43:10 Knee arthroscopy/sophia abhijeet completed Not Available Replaced by [facility] 04/26/2022 04:43:10 Imaging Results Imaging Date Name Status [facility]Modified by [facility] Details LastModified Time 08/18/2022 home sleep study completed [email or web address] [facility] [address] [place], [address], 08/29/2022 11:20:20 Procedure Notes None recorded. Medical Equipment None Reported. Allergies No known drug allergies Medications Name Sig Start Date Stop Date Status Note LastModified by Organization Details LastModified Time celecoxib 200 mg capsule TAKE 1 CAPSULE DAILY (BRIANONT JALEESA SINGH) 04/29 completed Not Available Not Available Not Available cyclobenz aprine 10 mg tablet Take 1 tablet every 12 hours by oral route as needed for 30 days. 2022 active Not Available Not Available Not Avai lable Lopressor 50 mg tablet Take 1 tablet twice a day by oral route. active Not Available Not Available No t Available ibuprofen 800 mg tablet Take 1 tablet as needed by oral route. 02/09 completed Not Available Not Available Not Available amiodaron e 200 mg tablet 08/18 completed Not Available Not Available Not Available metoprolo l succinate ER 50 mg tablet,ex tended release 24 hr active Not Available Not Available Not Available FreeStyle Lancets 28 gauge TEST FASTING GLUCOSE DAILY AND RECORD 07/21 completed Not Available Not Available Not Available Medrol (Nick) 4 mg tablets in a dose pack Take 1 dose pk every day by oral route as directed for 6 days. 04/28 completed Not Available Not Available Not Available allopurin ol 100 mg tablet TAKE 1 TABLET DAILY DIRECTED active Not Available Not Available No t Available Kenalog 10 mg/mL suspensio n for injection In office injectio n administ ered by the provider 06/08 completed [facility]: [id number] 06-15 Not Available Not Available Not Available meclizine 25 mg tablet Take 1 tablet 3 times a day by oral route as needed for 5 days. active Not Available Not Available No t Available pantopraz ole 40 mg tablet,de layed release 11/09 completed Not Available Not Available Not Available nitroglyc hilda 0.4 mg sublingua l tablet Place 1 tablet by sublingu al route. 2022 active Not Available Not Available Not Avai lable bisacodyl 5 mg tablet,de layed release 08/11 completed Not Available Not Available Not Available Viagra 100 mg tablet Take 1 tablet every day by oral route. 08/11 completed Changed to donna. Not Available Not Available Not Available amlodipin e 10 mg-benaze pril 20 mg capsule TAKE 1 CAPSULE DAILY 2023 active Not Available Not Available Not Avai lable Asprin Ec Low Dose 81 mg tablet,de layed release Take 1 tablet every day by oral route. 04/28 completed Not Available Not Available Not Available rosuvasta tin 40 mg tablet TAKE 1 TABLET DAILY active Not Available Not Available No t Available tadalafil 20 mg tablet Take 1 tablet every day by oral route for 90 days. 11/09 completed Not Available Not Available Not Available nitroglyc hilda 02/07 completed Not Available Not Available Not Available Crestor 02/07 completed Not Available Not Available Not Available MoviPrep 100 gram-7.5 gram-2.69 1 gram oral powder packet 11/09 completed Not Available Not Available Not Available FreeStyle Lite Meter kit USE TO CHECK FASTING GLUCOSE DAILY AND RECORD 07/21 completed Not Available Not Available Not Available FreeStyle Lite Strips TEST FASTING BLOOD GLUCOSE DAILY AND RECORD 07/21 completed Not Available Not Available Not Available ropivacai ne (PF) 5 mg/mL (0.5 %) injection solution In office injectio n administ ered by the provider 06/08 completed Not Available Not Available Not Available Xarelto 20 mg tablet TAKE 1 TABLET DAILY active Not Available Not Available No t Available Jardiance 10 mg tablet TAKE 1 TABLET BY MOUTH DAILY active Not Available Not Available No t Available Vitals Date Recorded Body mass index (BMI) Body height Oxygen saturation Oxygen saturation in Arterial blood by Pulse oximetry Heart rate Respiratory rate Body temperature Body weight Systolic blood pressure Diastolic blood pressure Provider Name and Address Organization Details Last Updated DateTime 2 32 kg/m2 182.88 cm 98 % 98 % 68 /min 16 /min 98.2 [degF] 632652. 8 g 130 mm[Hg] 78 mm[Hg] Not Available [facility] 3 04:46:14 Date Recorded Body height Body mass index (BMI) Body weight Body temperature Heart rate Respiratory rate Oxygen saturation Oxygen saturation in Arterial blood by Pulse oximetry Systolic blood pressure Diastolic blood pressure Provider Name and Address Organization Details Last Updated DateTime 3 182.88 cm 32.4 kg/m2 553212. 63 g 97.8 [degF] 61 /min 16 /min 98 % 98 % 158 mm[Hg] 98 mm[Hg] Val Nguyen RN [facility] [employer] [facility] 3 10:08:01 Date Recorded Body height Body weight Body temperature Heart rate Oxygen saturation Oxygen saturation in Arterial blood by Pulse oximetry Systolic blood pressure Diastolic blood pressure Provider Name and Address Organization Details Last Updated DateTime 3 182.88 cm 919279. 72 g 98.3 [degF] 69 /min 99 % 99 % 130 mm[Hg] 90 mm[Hg] Rupa Green RN [facility] [employer] [facility] 3 16:26:09 Date Recorded Body height Body mass index (BMI) Body weight Body temperature Heart rate Oxygen saturation Oxygen saturation in Arterial blood by Pulse oximetry Systolic blood pressure Diastolic blood pressure Provider Name and Address Organization Details Last Updated DateTime 3 182.88 cm 33.7 kg/m2 059087. 31 g 98.2 [degF] 66 /min 98 % 98 % 136 mm[Hg] 88 mm[Hg] Abhishek Bernabe [facility] [employer] [facility] 3 09:44:00 Date Recorded Body height Body mass index (BMI) Body weight Body temperature Heart rate Oxygen saturation Oxygen saturation in Arterial blood by Pulse oximetry Systolic blood pressure Diastolic blood pressure Provider Name and Address Organization Details Last Updated DateTime 4 182.88 cm 36.5 kg/m2 307047. 35 g 97.8 [degF] 60 /min 97 % 97 % 138 mm[Hg] 86 mm[Hg] Nohelia Grayson MA [facility] [employer] [facility] 4 09:43:23 Date Recorded Heart rate Respiratory rate Provider N jose a and Address Organization Details Last Updated DateTime 04/30/2023 60 /min 15 /min Servando Saenz MD [address], [address], [facility] [employer] [facility] 04/30/2023 10:18:44 Social History Question Answer Notes LastModified by Organizat ion Details LastModified Time Tobacco Smoking Status Never Smoker Not Available [facility] 04/26/2022 04:41:36 Do You Have An Advance Directive? No [id number] Information not available 04/26/2022 What Is Your Level Of Alcohol Consumption? Moderate [id number] Information not available 04/26/2022 Is Blood Transfusion Acceptable In An Emergency? Yes Information not available 06/08/2022 What Is Your Level Of Caffeine Consumption? Moderate 3 Cups Of Coffee A Day Information not available 06/08/2022 What Is Your Code Status? Full Code [id number] Information not available 04/26/2022 In The 14 Days Before Symptom Onset, Have You Had Close Contact With A Laboratory-confi rmed COVID-19 While That Case Was Ill? No [id number].[id number] Information not available 04/26/2022 In The 14 Days Before Symptom Onset, Have You Had Close Contact With A Person Who Is Under Investigation For COVID-19 While That Person Was Ill? No MIGRATION.41128 [id number] Information not available 04/26/2022 What Type Of Diet Are You Following? REGULAR MIGRATION.32327 [id number] Information not available 04/26/2022 Which Illicit Or Recreational Drugs Have You Used? MJ 5 Times Weekly Information not available 06/08/2022 Do You Have An Electrostatic Air Filter? No Information not available 04/30/2023 Have There Been Any Changes To Your Family Or Social Situation? No MIGRATION.05512 [id number] Information not available 04/26/2022 Do You Have A Humidifier? No Information not available 04/30/2023 Do You Use Insect Repellent Routinely? Yes MIGRATION.27444 [id number] Information not available 04/26/2022 [facility] MIGRATION.[id number] Information not available 04/26/2022 Do You Have A Medical Power Of Schedule Maker? No MIGRATION.55924 99778 Information not available 04/26/2022 Do You Have Moisture Problems In Your Home? No Information not available 04/30/2023 What Was The Date Of Your Most Recent Tobacco Screening? 04/30/2023 Information not available 04/30/2023 How Many Children Do You Have? 0 Information not available 06/08/2022 Do You Have Any Pets? Yes MIGRATION.06362 [id number] Information not available 04/26/2022 What Is Your Relationship Status? Domestic Partner MIGRATION.57921 [id number] Information not available 04/26/2022 Do You Use Your Seat Belt Or Car Seat Routinely? Yes Information not available 06/08/2022 Do You Have Smoke And Carbon Monoxide Detectors In Your Home? Yes MIGRATION.06596 75837 Information not available 04/26/2022 Are You Passively Exposed To Smoke? No MIGRATION.88901 90587 Information not available 04/26/2022 Are There Any Smokers In Your House? No MIGRATION.34880 93958 Information not available 04/26/2022 Do You Participate In Social Media? Yes Information not available 06/08/2022 Do You Feel Stressed (tense, Restless, Nervous, Or Anxious, Or Unable To Sleep At Night)? [id number] Information not available 06/08/2022 Do You Use Any Illicit Or Recreational Drugs? Yes Information not available 06/08/2022 Do You Use Sunscreen Routinely? Yes MIGRATION.82863 [id number] Information not available 04/26/2022 Have You Recently Traveled Abroad? No MIGRATION.31973 91944 Information not available 04/26/2022 Have You Used IV Drugs? No Information not available 06/08/2022 Are You Currently In School? No MIGRATION.71379 36456 Information not available 04/26/2022 Do You Have Any Dietary Restrictions? No MIGRATION.74986 54132 Information not available 04/26/2022 Sex: Unknown Functional Status Question Answer Note LastModified by Organization D etails LastModified Time What is your exercise level? None Information not available 06/08/2022 Mental Status None recorded. Family History Relationship Description Onset Age of this Age Resolved Age Notes LastModified by Organization Details LastModified Time Father Heart disease [id number] Not available 04/26/2022 04:43:14 Father Family history of stroke [id number] Not available 04/26/2022 04:43:14 Father Hypertensive disorder [id number] [id number] Not available 04/26/2022 04:43:14 Father Diabetes mellitus [id number] Not available 04/26/2022 04:43:14 Notes:Father in 1999, age 67. Medical History Condition Response MYOCARDIAL INFARCTION Y ARTHRITIS Y ATRIAL FIBRILLATION Y Immunizations Vaccine Type Date Status Note Provider Nam e and Address Organization Details Recorded Time SARS-COV-2 (COVID-19) vaccine, UNSPECIFIED 2 completed Not Available [facility] 04/26/2022 04:56:23 influenza, unspecified formulation 2 completed Not Available [facility] 04/26/2022 04:56:23 Influenza, split virus, quadrivalent, PF 0 completed Not Available [facility] 04/26/2022 04:56:23 Influenza, split virus, quadrivalent, PF 1 completed Not Available [facility] 04/26/2022 04:56:24 Influenza, split virus, quadrivalent, PF 9 completed Not Available [facility] 04/26/2022 04:56:24 Past Encounters Encounter ID Performer Location Encounter Start Date Encounter Closed Date Diagnosis/Indication Diagnosis SNOMED-CT Code Diagnosis ICD10 Code Diagnosis Note [id number] [facility] [address] [address] 08/18/2020 00:00:00 08/18/2020 08:28:41 [id number] [facility] [address] [place] [address] 11/16/2020 00:00:00 11/16/2020 15:01:07 [id number] [facility] [address] [place] [address] 12/27/2020 00:00:00 12/27/2020 16:57:35 [id number] [facility] [address] [place] [address] 05/04/2021 00:00:00 05/04/2021 09:14:38 [id number] [facility] [address] [address] 10/14/2021 00:00:00 10/14/2021 08:23:12 [id number] [facility] [place] [address] [place] [address] 11/09/2021 00:00:00 11/27/2021 15:13:[id number] [address] 02/09/2022 00:00:00 02/09/2022 09:40:54 [id number] Val Brooks NP [address] [address] 06/08/2022 09:56:22 06/08/2022 10:41:23 Sleep apnea 65678234 G47.30 States CPAP machine is leaking at the [facility] study > 5 years ago. Was prob 15 years ago.CPAP machine is about 10 years ago. Using [employer] for CPAP supplies currently. Pt lives in [place] so [place] or [place] are ok locations. Screening for malignant neoplasm of colon 174592692 Z12.11 GI referral for colonoscop y.2019 had 12 polyps removed. Chest pain 87404267 R07. 9 nitro tablets for prn use. [id number] Halima Matos, [facility] [place] [address] [place] [address] 10/17/2022 16:18:21 10/17/2022 17:21:33 Obstructive sleep apnea syndrome 96198979 G47.33 I do not have old study, staff to request.He is due for new machine.Or dered from current DME ([facility])Enc ouraged 100% compliance with all sleepFollo w with PCM for labsAdvise d good sleep habits and patterns:- Set a goal for at least 7 to 8 hours of sleep time per day.-Use the bed mainly for sleep and to go to bed only when tired. If unable to fall asleep after 30 minutes, patient should get out of bed but should not engage in any activity that requires sustained mental alertness. -Maintain a regular bedtime and wake-up time even on weekends.- Avoid excessive naps during the daytime. If a nap is necessary, limit it to no more than 30 minutes.-M inimize environmen neal noise, bright lights, and extremes in bedroom temperatur e.-Avoid alcohol, caffeinate d beverages, and nicotine products for at least 6 hours prior to bedtime.-A void strenuous exercise and large meals for at least 4 hours prior to bedtime.Di scussed follow up for compliance , he will RTC for OV between 31 and 90 days. [id number] Van Valente MD [facility] [address] [place] [address] 02/15/2023 09:36:41 02/15/2023 10:19:16 Acute gout 613272762 M10.9 Chronic back pain 847407 002 G89.29 Middle and lower Gouty arthropathy 434008 008 M10.09 Thoracic back pain 75646 8004 M54.6 Obesity 932937219 E66.9 Atrial fibrillation 4943 6004 I48.91 Hyperlipidemia 00975943 E78.5 [id number] Servando Saenz MD [facility] Pulmon[facility] [address] [address] 04/30/2023 09:26:56 05/01/2023 08:42:21 Obstructive sleep apnea syndrome 52151355 G47.33 Health Concerns Section Related Observation LastModified by Organization Detai ls LastModified Time None Recorded Concern Status LastModified by Organization Details LastModified Time None Recorded Advance Directives Directive N: Payers Encounter Date Sequence Insurance Name Policy Number Policy Coppola Covered Member ID Coppola Member ID Guarantor Name 06/08/2022 1 [place] - [place] PRIOR TO 2024 - [employer] - [place] ( - PPO) Dario aHmmond [id number] Dario Hammond 10/17/2022 1 [place] - [place] PRIOR TO 2024 - [employer] - [place] ( - PPO) Dario Hammond [id number] Dario Hammond 02/15/2023 1 [place] - [place] PRIOR TO 2024 - [employer] - [place] ( - PPO) Dario Hammond [id number] Dario Hammond 04/30/2023 1 [place] - DOS PRIOR TO 2024 - [employer] - [employer] ( - PPO) Dario Hammond [id number] Dario Hammond Notes Date Note Type Note Provider Name and Address Organization Details Recorded Time 06/08/2022 text/html Here for discuss ion about cpap machine. States CPAP machine is leaking at the [facility].Sleep study > 5 years ago. Was prob 15 years ago.CPAP machine is about [address] Allen wants him back on xarelto, had to come off the celebrex.Was told to come off the crestor as that can be cause of joint pain. Has been off for 4 months now. Interested in lipid levels. No change in joint pain in hands since stopping the crestor. Knees are bad from wear and tear of years.Lipid in January 2022 good. Will get order to recheck.Stopped crestor Feb 2022. Colonoscopy- removed 12 polyps in Feb 2018. Due for Val Brooks NP [address] [facility], [place], [address], [employer] 06/08/2022 10:40:06 10/17/2022 text/html Mr Hammond present s today to establish care for further evaluation of AUGUSTO and PAP machine.Testing was >10 years ago and machine is that old as well.His water chamber is leaking.He does not know his pressure but denies difficulty with use.Sleep is restfulEndorses nocturia 1x nightly, unchanged.Denies morning headaches, xerostomia, aerophagia and GERD.Does not wake at night due to mask leak or discomfort.Full face mask fits well.Does not fall asleep unintentionally during the dayReviewed medical and surgical historyReviewed family and social historyReviewed PCM notes and testingReviewed medications and allergies Halima Matos, [facility] [address] [facility], [place], [address], [employer] 10/17/2022 22:31:33 02/15/2023 text/html ACV: C/o Lt great toe area pain and swelling for last 1.5 weeks. Pt has similar symptoms over his Rt foot last month and now its getting better. Denies any fall/trauma/injury. C/o chronic middle and low back area pain and stiffness for last many years. But for last few months, its bothering him more. Denies any workman's comp. Van Valente MD [address], [place], [address], [place] [facility] 02/15/2023 10:02:41 04/30/2023 text/html Primary care/Ref erring provider: Van Valente MD CC: My CPAP leaks around the water reservoir. At home since 10/17/22, the patient uses a ResMed AirSense 10 autoset unit with heated humidification. The patient does not need the ramp to start low and go up slowly on the pressure anymore. There is some xerostomia in a.m. There is no hose/mask condensation with water.The patient wears a [employer]Med medium AirFit F20 full face mask without chin strap. There is no claustrophobia, no nostril/nose bridge irritation, no facial rash, no facial numbness, no nosebleeding. The patient feels more refreshed upon waking and daytime alertness is improved. Energy levels are sustained for the remainder of the day. At home, the patient sleeps from 9 pm to 5 am and wakes up with an alarm. Snoring: heavy, since 1980s.Snorting: yesChoking: yesCoughing: noGasping: yesGagging: yesSighing: yesWitnessed apnea: yesTwitching or jerking of leg(s), arm(s), body, head: yesTeeth grinding: yesTeeth clenching: yesSleeptalking: yesSleepwalking: noSleep crying: yesBedwetting: noTongue/lip/gum/cheek biting: noSleeping with open mouth: yesSleep paralysis: noHypnagogic hallucinations: noHypnopompic hallucinations: noVivid dreams: yesDifficulty with sleep onset: noDifficulty with sleep maintenance: yesSleep interruptions: nocturia x 1Patient wakes up with: fatigue, xerostomiaDaytime cataplexy: noMorning hypersomnolence: noAfternoon hypersomnolence: yesCaffeine sources in diet: coffee 3 cups per day, soda 1 can per day, chocolate 1 candy per day Associated medical and psychiatric conditions:Congestive heart failure: noCoronary artery disease: yesMyocardial infarction: yesArrhythmias: yesHypertension: yesStroke: noBronchial asthma: noChronic obstructive pulmonary disease: noDepression: noBipolar disorder: noAnxiety: noPanic disorder: noPosttraumatic stress disorder: noAttention deficit and hyperactivity disorder: noObsessive Compulsive disorder: noSchizophrenia: noSchizoaffective disorder: noPersonality disorder: noChronic analgesic use: noChronic sedative/hypnotic use: no EPWORTH SLEEPINESS SCALE (ESS) CHANCE OF DOZING SCORE0 = would never doze1 = slight chance of dozing2 = moderate chance of dozing3 = high chance of dozing SITUATION AND CHANCE OF DOZINGSitting and reading - 1Watching television - 1Sitting inactive in a public place (e.g. a theater or meeting) - 0As a passenger in a car for an hour without a break - 0Lying down to rest in the afternoon when circumstances permit - 2Sitting and talking to someone - 0Sitting quietly after lunch without alcohol - 1In a car, while stopped for a few minutes in the traffic - 0TOTAL SCORE 5Subjectively, patient has a slight chance of dozing. Servando Saenz MD [address] [place] [address], [place], [address], [place] [facility] 04/30/2023 10:24:58
--- OUTSIDE RECORDS SUMMARY | 2024-03-20 16:21 | XMS_ITS | Clinical Summary ---
Author Organization [facility] [address] Address [address] [place] [address] Care Team Providers Care Pipe Out Worker Name Role Phone Val Menendez NEWSPERSON Primary Care Provider + Lisa Carty NP [...] ablation of atrial fibrillation 03/29 Atrial fibrillation ([facility]/HCC) 02/13/2020 Coronary artery disease 02/13/2020 Hypertension associated with diabetes 02/13/2020 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 2 diabetes mellitus ([facility]/HCC) 02/13/2020 Resolved Problems Problem Noted Date Diagnosed Date Resolved Date Mixed hyperlipidemia 02/23/2021 023 Dyslipidemia 08/17/2020 02/23/2021 Surgical History Surgery Date Site/Laterality Comments KNEE SURGERY Medical History Medical History Date Comments Hypertension Heart attack (HCC) Hyperlipidemia DM (diabetes mellitus) (HCC) Sleep apnea Family History Medical History Relation Name Comments Heart attack Father Cancer Mother Relation Name Status Comments Father (Age 62) Mother Alive Social History Tobacco Use Types Packs/Day Years Used Date Smoking Tobacco: Former Smokeless Tobacco: Never Alcohol Use Standard Drinks/Week Comments Yes 0 (1 standard drink = 0.6 oz pur e alcohol) Personal Safety Answer Date Recorded Getting School Help Needed Not on file 02/20 Sex and Gender Information Value Date Recorded Sex Assigned at Not on file Legal Sex Male 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 Gender Identity Not on file Sexual Orientation Not on file Obstetrics History Last Filed Vital Signs Vital Sign Reading Time Taken Comments Blood Pressure 128/78 05/03/2023 9:21 AM TRUCK BODY REPAIRER Pulse 64 05/03/2023 9:21 AM TRUCK BODY REPAIRER Temperature 36.8 ??C (98.3 ??F) 04/23/2020 8:40 AM CS T Respiratory Rate 16 03/02/2021 3:36 PM TRUCK BODY REPAIRER Oxygen Saturation 97% 05/03/2023 9:21 AM TRUCK BODY REPAIRER Inhaled Oxygen Concentration - - Weight 122.2 kg (269 lb 6.4 oz) 05/03/2023 9:21 AM TRUCK BODY REPAIRER Height 185.4 cm (6' 1 ) 05/03/2023 9:21 AM TRUCK BODY REPAIRER Body Mass Index 35.54 05/03/2023 9:21 AM TRUCK BODY REPAIRER Plan of Treatment Health Maintenance Due Date Last Done Comments Albumin Creatinine Ratio, Urine 1967 Colon Cancer Screening-Colonoscopy 1967 Depression Screening 1967 Hemoglobin A1C 1967 Hepatitis C Screening 1967 Prostate Cancer Screening-PSA 1967 Dilated Eye Exam 1967 Foot Exam 1967 Pneumococcal vaccine <65 (1 of 2 - PCV) 07/06/1973 DTaP/Tdap/Td Vaccine (1 - Tdap) 07/06/1978 Hepatitis B Screening 07/06/1985 Regular Well Visit/Exam 18-64 07/06/1985 Zoster Vaccine (1 of 2) 07/06/2017 eGFR 04/22/2021 04/22/2020 Influenza Vaccine (#1) 2023 , 12/27/2020, 12/29/2019, Additional history exists Lipid Panel 05/02/2024 05/03/2023, 10/2022, 02/23/2021, Additional history exists Medical Devices Implanted Type Area Chemistry Specialist Device Identifier Shelf Expiration Date Model / Serial / Lot [employer] [id number] System 6-12fr Mvp Venous Closure Vascade - [id number] - [id number] Implanted:Qty : 1 on 04/22/2020 by Hayder Feldman MD at [facility] Collagen Left: Femoral [employer] 03/03/2022 800-612C- 10U / [id number] / [id number] [employer] [id number] System 6-12fr Mvp Venous Closure Vascade - [id number] - [id number] Implanted:Qty : 1 on 04/22/2020 by Hayder Feldman MD at [facility] Collagen Left: Femoral [employer] 03/03/2022 800-612C- 10U / [id number] / [id number] [employer] [id number] System 6-12fr Mvp Venous Closure Vascade - [id number] - [id number] Implanted:Qty : 1 on 04/22/2020 by Hayder Feldman MD at [facility] Collagen Right: Femoral [employer] 03/03/2022 800-612C- 10U / [id number] / [id number] [employer] [id number] Device Closure Vascade Od5 Fr Femoral Artery - [id number] - [id number] Implanted:Qty : 1 on 04/22/2020 by Hayder Feldman MD at [facility] Collagen Right: Femoral [employer] 11/10/2021 [id number] -[id number] / [id number] / [id number] Procedures Procedure Name Priority Date/Time Associated Diagnosis Comments POCT LIPID PANEL Routine 05/03/2023 10:0 7 AM TRUCK BODY REPAIRER Coronary artery disease involving [place] coronary artery of [place] heart without angina pectoris EGFR STAT 04/22/2020 7:23 AM TRUCK BODY REPAIRER from Last 3 Months or Most Recently Relevant to Health Maintenance Results * POCT lipid panel (05/03/2023 10:07 AM TRUCK BODY REPAIRER) Cholesterol, POC 124 mg/dL Comment:GLU = 157 HDL, POC 41 mg/dL Triglycerides, POC 121 mg/dL LDL Cholesterol POC 59 mg/dL Chol/HDL Ratio, POC 1.4 Non-HDL Cholesterol, POC 83 mg/dL Cholesterol Total, POC 124 mg/dL Capillary blood 05/03/2023 1 0:07 AM TRUCK BODY REPAIRER Denilson Florez MD POINT OF CARE TEST ORDER RAMON Final Result * eGFR (04/22/2020 7:23 AM TRUCK BODY REPAIRER) eGFR 104 mL/min/1.7 3 m2 [facility] Comment: Interpretive Data Reference Interval Normal ?>/= [...] 2020 Blood specimen (specimen) 04/22/2020 7:23 AM TRUCK BODY REPAIRER 04/22/2020 7:23 AM TRUCK BODY REPAIRER us Hayder Feldman MD LAB BLOOD ORDERABLES Final Result [facility] [address] Department [place] [address] from Last 3 Months or Most Recently Relevant to Health Maintenance Insurance [facility] [employer] [employer] [facility] [employer] Care Teams Pipe Out Worker Relationship Specialty Start Date End Date Val Menendez NP [address] [place], [place] [address] PCP - General Nurse Practitioner 02/10/20 Lisa Carty NP [address] [place], [place] [id number] Nurse Practitioner Cardiology 04/23/20
--- OUTSIDE RECORDS SUMMARY | 2024-03-20 16:22 | XMS_ITS | Continuity of Care Document ---
Author Name [facility] Organization [facility] Care Team Providers Care Api Developer Name Role Phone [facility] Unavailable Unavailable Problems Combined list of problems from Department of Defense and Veterans Affairs facilities. It does not include entries that were removed or entered in error. Problem Status Onset Date Problem Type Date of Resolution Comments Source Hyperlipidemia, unspecified Active 03/06/2018 Condition DoD Obstructive sleep apnea (adult) (pediatric) Active 03/06/2018 Condition DoD Male erectile disorder Active 08/15/2016 Condition DoD essential hypertension Inactive 03/09/2016 Condition DoD nonorganic sleep apnea obstructive Inactive 03/09/2013 Condition DoD hypertension systemic Inactive 09/04/2012 Condition DoD hyperlipidemia Active 11/24/2009 Condition DoD Mathew's palsy Active Condition DoD parotitis Active Condition DoD skin abscess of right ear Inactive Condition DoD cellulitis of right external ear Inactive Condition DoD Urinalysis: Hemoglobin Inactive Condition DoD aneurysm of the aortic root Active Condition DoD chest pain Active Condition DoD Need For Vaccination Pneumococcal Inactive Condition DoD Parent Education: Immunizations Inactive Condition DoD Serum Enzyme Levels Alkaline Phosphatase Elevated Active Condition DoD Serum Enzyme Levels - AST (SGOT) Elevated Active Condition DoD Metabolic Tests Nonspecific Elevation Of Transaminase Levels Active Condition DoD nicotine dependence in remission Active Condition DoD coronary artery disease Active Condition DoD atypical chest pain Inactive Condition D oD lower back pain Active Condition DoD Blood Pressure Isolated Elevated Active Condition DoD herniated disc of L5 - S1 Active Condition DoD primary snoring Active Condition DoD visit for: screening exam cardiovascular disorders Inactive Condition DoD benign skin neoplasm subcutaneous lipoma Inactive Condition DoD osteoarthritis knee Active Condition Do D postsurgical state of eye and adnexa Active Condition DoD Aftercare Following Surgery Of Sense Organs Inactive Condition DoD visit for: preoperative exam Inactive Condition DoD visit for: screening exam eye disorders Active Condition DoD visit for: screening mental / developmental disorders Inactive Condition DoD lump in / on the skin Active Condition DoD visit for: screening exam depression Inactive Condition DoD lateral epicondylitis (tennis elbow) Inactive Condition DoD drusen Active Condition DoD Contact Lenses Prescription And Fitting Services Active Condition DoD visit for: follow-up exam Inactive Condition DoD Observation For Suspected Condition Inactive Condition DoD plantar fasciitis right Active Condition DoD joint pain, localized in the shoulder Active Condition DoD Aftercare Orthopedic Active Condition D oD Aftercare Following Surgery Of Musculoskeletal System Inactive Condition DoD Need For Vaccination Against DTP Inactive Condition DoD Other Physical Therapy Active Condition DoD visit for: preoperative orthopedic exam Inactive Condition DoD old disruption of anterior cruciate ligament left Active Condition DoD osteoarthritis localized secondary knee left Active Condition DoD joint instability knee Active Condition DoD Patient Counseling: Active Condition Do D joint pain, localized in the knee Active Condition DoD Murmurs Active Condition DoD visit for: ears / hearing exam Active Condition DoD assess patient condition work-related occupational disease Active Condition DoD prior myocardial infarction Active Condition DoD assessment of patient condition work status Inactive Condition DoD presbyopia Active Condition DoD astigmatism Active Condition DoD Spectacles Services Fitting Monofocal For Aphakia Active Condition DoD Need For Vaccination Typhoid Active Condition DoD Need For Vaccination Against Bacterial Diseases Active Condition DoD Need For Vaccination Against Viral Diseases Inactive Condition DoD visit for: screening exam pulmonary tuberculosis Active Condition DoD Laboratory Studies Active Condition DoD visit for: administrative purpose Inactive Condition DoD Need For Vaccination Against Influenza Active Condition DoD de leon of left palm Active Condition DoD visit for: services physical Active Condition DoD Patient Education - Alcohol Inactive Condition DoD Patient Education - Self-Examination Of Testes Active Condition DoD Patient Education - Injury Prevention Inactive Condition DoD visit for: occupational health / fitness exam Active Condition DoD visit for: routine eye exam Inactive Condition DoD refractive error - myopia Active Condition DoD astigmatism regular Active Condition Do D Medications Combined list of outpatient medications from Department of Defense and Veterans Affairs facilities.Medications provided include 1) outpatient medications from the last 15 months, and 2) patient-reported medications. Medication Details Route Status Patient Instructions Prescription Expires Prescription Number Last Dispense Date Ordering Provider Order Date Order Qty Source ALLOPURINOL (allopurino l), 100 MG, TABLET, ORAL, [facility], 100 ea. BOTTLE Cancele d [id number] : 2023 0 Pharmac y Data Transac tion Service Facilit y ALLOPURINOL (allopurino l), 100 MG, TABLET, ORAL, [facility], 100 ea. BOTTLE Active [id number] 4 2023 90 Pharmac y Data Transac tion Service Facilit y ALLOPURINOL (ALLOPURINO L), 100MG, TABLET, ORAL, 'S LAB, 1000 ea. BOTTLE Cancele d [id number] : 2023 0 Pharmac y Data Transac tion Service Facilit y ALLOPURINOL (ALLOPURINO L), 100MG, TABLET, ORAL, 'S LAB, 1000 ea. BOTTLE Active [id number] 4 2023 90 Pharmac y Data Transac tion Service Facilit y AMLODIPINE BESYLATE-BE NAZEPRIL (amlodipine besylate/be nazepril HCl), 10 MG-20MG, CAPSULE, ORAL, AVKARE, 100 ea. BOTTLE Cancele d [id number] : 2023 0 Pharmac y Data Transac tion Service Facilit y AMLODIPINE BESYLATE-BE NAZEPRIL (amlodipine besylate/be nazepril HCl), 10 MG-20MG, CAPSULE, ORAL, AVKARE, 100 ea. BOTTLE Active [id number] 2023 90 Pharmac y Data Transac tion Service Facilit y AMLODIPINE BESYLATE-BE NAZEPRIL (amlodipine besylate/be nazepril HCl), 10 MG-20MG, CAPSULE, ORAL, AVKARE, 100 ea. BOTTLE Active [id number] 4 2023 90 Pharmac y Data Transac tion Service Facilit y FREESTYLE LANCETS (lancets), 28 GAUGE, EACH, MISCELL, MARIE DIABETES, 100 ea. PACKET Cancele d [id number] : 2023 0 Pharmac y Data Transac tion Service Facilit y FREESTYLE LITE TEST STRIP (blood sugar diagnostic) , STRIP, MISCELL, MARIE DIABETES, 100 ea. BOX Active [id number] 05/29/19 2 4 2023 100 Pharmac y Data Transac tion Service Facilit y JARDIANCE (EMPAGLIFLO ZIN), 10 MG, TABLET, ORAL, BOEHRINGER ING., 30 ea. BOTTLE Active [id number] 2023 30 Pharmac y Data Transac tion Service Facilit y JARDIANCE (EMPAGLIFLO ZIN), 10 MG, TABLET, ORAL, BOEHRINGER ING., 30 ea. BOTTLE Active [id number] 4 2023 30 Pharmac y Data Transac tion Service Facilit y JARDIANCE (EMPAGLIFLO ZIN), 10 MG, TABLET, ORAL, BOEHRINGER ING., 90 ea. BOTTLE Active [id number] 2023 90 Pharmac y Data Transac tion Service Facilit y ONETOUCH DELICA PLUS LANCET (lancets), 33 GAUGE, EACH, MISCELL, LIFESCAN, 100 ea. BOX Cancele d [id number] : 2023 0 Pharmac y Data Transac tion Service Facilit y OXYCODONE HCL (OXYCODONE HCL), 5MG, TABLET, ORAL, MALLTravel NotesRT PHARM, 100 ea. BOTTLE Active [id number] 4 2023 20 Pharmac y Data Transac tion Service Facilit y PREDNISONE (PREDNISONE ), 10MG, TABLET, ORAL, Wishpot, 1000 ea. BOTTLE Active [id number] 2023 18 Pharmac y Data Transac tion Service Facilit y ROSUVASTATI N CALCIUM (rosuvastat in calcium), 40 MG, TABLET, ORAL, [employer] 1000 ea. BOTTLE Active [id number] 2023 90 Pharmac y Data Transac tion Service Facilit y ROSUVASTATI N CALCIUM (rosuvastat in calcium), 40 MG, TABLET, ORAL, [employer] 30 ea. BOTTLE Active [id number] 4 2023 90 Pharmac y Data Transac tion Service Facilit y XARELTO (RIVAROXABA N), 20 MG, TABLET, ORAL, DIANA PHARM., 30 ea. BOTTLE Cancele d [id number] : 2023 0 Pharmac y Data Transac tion Service Facilit y XARELTO (RIVAROXABA N), 20 MG, TABLET, ORAL, DIANA PHARM., 90 ea. BOTTLE Active [id number] 2023 90 Pharmac y Data Transac tion Service Facilit y XARELTO (RIVAROXABA N), 20 MG, TABLET, ORAL, DIANA PHARM., 90 ea. BOTTLE Active [id number] 4 2023 90 Pharmac y Data Transac tion Service Facilit y XARELTO (RIVAROXABA N), 20 MG, TABLET, ORAL, DIANA PHARM., 90 ea. BOTTLE Active [id number] 3 2022 90 Pharmac y Data Transac tion Service Facilit y Allergies, Adverse Reactions, Alerts Combined list of allergies from Department of Defense and Veterans Affairs facilities. It does not include entries that were removed or entered in error. Substance Category Reaction Severity Reaction type Status Date Reported Comments Source No Known Allergies Drug allergy (disorder) active 01/28/2013 DoD Immunizations Combined list of available immunizations from the Department of Defense and Veterans Affairs facilities. Immunization Series Date Given Administered By Site Reaction Lot Number CVX Code Drug Cigarette Stamper Status Comments Source Influenza, injectable, quadrivalent, preservative free 1 2017 THOMPSON FAJARDO [id number] Seqirus (SEQ) complet ed Influenza , injectabl e, quadrival ent, preservat fern free DoD anthrax vaccine 8 2017 [id number] [facility] [place] [facility] complet ed anthrax vaccine DoD Influenza, seasonal, injectable, preservative free 1 2016 [id number] Seqirus (SEQ) comple t ed Influenza , seasonal, injectabl e, preservat fern free DoD Influenza, seasonal, injectable 1 2015 [id number] 141 Seqirus (SEQ) complet ed Influenza , seasonal, injectabl e DoD anthrax vaccine 7 2015 [id number] 24 [facility] [place] [facility] complet ed anthrax vaccine DoD typhoid Vi capsular polysaccharid e vaccine 1 2015 [id number] SmithKline (SKB) complet ed typhoid Vi capsular polysacch aride vaccine DoD Influenza, seasonal, injectable, preservative free 1 2014 [id number] [employer] (CSL) complet ed Influenza , seasonal, injectabl e, preservat fern free DoD measles, mumps and rubella virus vaccine 1 2014 EMMETT FOX [id number] 03 Merck (MSD) complet ed measles, mumps and rubella virus vaccine DoD varicella virus vaccine 1 2014 UNK 21 Unknown (UNK) Not Given varicella virus vaccine DoD varicella virus vaccine 1 2013 EXEMPT 21 Transcribed (TRS) Not Given varicella virus vaccine DoD Influenza, seasonal, injectable, preservative free 0 2013 HEATHER ADAMS [id number] 140 Affirm. (NOV) complet ed Influenza , seasonal, injectabl e, preservat fern free DoD Influenza, injectable, quadrivalent, preservative free 1 2013 [id number] 150 Sanofi Pasteur ([facility]) complet ed Influenza , injectabl e, quadrival ent, preservat fern free DoD pneumococcal polysaccharid e vaccine, 23 valent 1 2013 MANDO PORTILLO [id number] 33 Merck (MSD) complet ed pneumococ sudarshan polysacch aride vaccine, 23 valent DoD influenza virus vaccine, unspecified formulation 0 2012 HEATHER ADAMS [id number] 88 [employer]., Inc. (MED) complet ed influenza virus vaccine, unspecifi ed formulati on DoD influenza, live, intranasal, quadrivalent 1 2012 [id number] 149 [employer] (MED) complet ed influenza , live, intranasa l, quadrival ent DoD influenza virus vaccine, live, attenuated, for intranasal use 0 2011 MARQUEZ FUENTES [id number] 111 [employer] (MED) complet ed influenza virus vaccine, live, attenuate d, for intranasa l use DoD influenza virus vaccine, live, attenuated, for intranasal use 1 2010 [id number] 111 [employer] (MED) complet ed influenza virus vaccine, live, attenuate d, for intranasa l use DoD tetanus toxoid, reduced diphtheria toxoid, and acellular pertu is vaccine, adsorbed 0 2010 HEATHER DILL [id number] 115 Transcribed (TRS) complet ed tetanus toxoid, reduced diphtheri a toxoid, and acellular pertussis vaccine, adsorbed DoD influenza virus vaccine, split virus (incl. purified surface antigen)-reti red CODE 1 2009 [id number] 15 Sanofi Pasteur (PMC) complet ed influenza virus vaccine, split virus (incl. purified surface antigen)- retired CODE DoD Novel influenza-H1N -09, injectable 1 2008 [id number] 127 Novartis [employer]. (NOV) complet ed Novel influenza -W3U3-74, injectabl e DoD influenza virus vaccine, split virus (incl. purified surface antigen)-reti red CODE 1 2008 [id number] 15 Sanofi Pasteur ([facility]) complet ed influenza virus vaccine, split virus (incl. purified surface antigen)- retired CODE DoD anthrax vaccine 6 2008 [id number] 24 [employer] [place] ([facility]) complet ed anthrax vaccine DoD typhoid Vi capsular polysaccharid e vaccine 1 2008 [id number] 101 Sanofi Pasteur (PMC) complet ed typhoid Vi capsular polysacch aride vaccine DoD meningococcal polysaccharid e (groups A, C, Y and W-135) diphtheria toxoid conjugate vaccine (MCV4P) 1 2008 [id number] 114 Sanofi Pasteur ([facility]) complet ed meningoco ccal polysacch aride (groups A, C, Y and W-135) diphtheri a toxoid conjugate vaccine (MCV4P) DoD tuberculin skin test; purified protein derivative solution, intradermal 1 2008 DANY HORVATH [id number] 96 Unknown (UNK) complet ed tuberculi n skin test; purified protein derivativ e solution, intraderm al DoD influenza virus vaccine, live, attenuated, for intranasal use 1 2007 [id number] 111 [employer] Inc[employer] (MED) complet ed influenza virus vaccine, live, attenuate d, for intranasa l use DoD influenza virus vaccine, split virus (incl. purified surface antigen)-reti red CODE 1 2005 [id number] 15 Unknown (UNK) comple t ed influenza virus vaccine, split virus (incl. purified surface antigen)- retired CODE DoD typhoid vaccine, parenteral, other than acetone-kille d, dried 1 2005 UNK 41 Unknown (UNK) comple t ed typhoid vaccine, parentera l, other than acetone-k illed, dried DoD hepatitis B vaccine, adult dosage 3 2005 UNK 43 Unknown (UNK) comple t ed hepatitis B vaccine, adult dosage DoD influenza virus vaccine, split virus (incl. purified surface antigen)-reti red CODE 1 2004 [id number] 15 Unknown (UNK) comple t ed influenza virus vaccine, split virus (incl. purified surface antigen)- retired CODE DoD influenza virus vaccine, split virus (incl. purified surface antigen)-reti red CODE 1 2004 UNK 15 Unknown (UNK) comple t ed influenza virus vaccine, split virus (incl. purified surface antigen)- retired CODE DoD hepatitis B vaccine, adult dosage 2 2003 UNK 43 Unknown (UNK) comple t ed hepatitis B vaccine, adult dosage DoD anthrax vaccine 5 2003 [id number] 24 [employer] [place] ([facility]) complet ed anthrax vaccine DoD influenza virus vaccine, split virus (incl. purified surface antigen)-reti red CODE 1 2002 UNK 15 Unknown (UNK) comple t ed influenza virus vaccine, split virus (incl. purified surface antigen)- retired CODE DoD anthrax vaccine 4 2002 [id number] 24 [facility] [place] [facility] complet ed anthrax vaccine DoD tetanus and diphtheria toxoids, adsorbed, preservative free, for adult use (2 Lf of tetanus toxoid and 2 Lf of diphtheria toxoid) 0 2002 [id number] 09 Sanofi Pasteur ([facility]) complet ed tetanus and diphtheri a toxoids, adsorbed, preservat fern free, for adult use (2 Lf of tetanus toxoid and 2 Lf of diphtheri a toxoid) DoD hepatitis B vaccine, adult dosage 1 2002 [id number] 43 [facility] ([facility]) complet ed hepatitis B vaccine, adult dosage DoD typhoid Vi capsular polysaccharid e vaccine 0 2002 [id number] 101 Sanofi Pasteur ([facility]) complet ed typhoid Vi capsular polysacch aride vaccine DoD vaccinia (smallpox) vaccine 0 2002 [id number] 75 Brandie-Ericka (WAL) complet ed vaccinia (smallpox ) vaccine DoD anthrax vaccine 3 2002 [id number] 24 [employer] [place] ([facility]) complet ed anthrax vaccine DoD anthrax vaccine 2 2002 [id number] 24 [facility] [place] [facility] complet ed anthrax vaccine DoD anthrax vaccine 1 2002 [id number] 24 [facility] [place] [facility] complet ed anthrax vaccine DoD influenza virus vaccine, split virus (incl. purified surface antigen)-reti red CODE 0 2001 UNK 15 Sanofi Pasteur (PMC) complet ed influenza virus vaccine, split virus (incl. purified surface antigen)- retired CODE DoD meningococcal polysaccharid e vaccine (MPSV4) 0 2001 UNK 32 Unknown (UNK) comple t ed meningoco ccal polysacch aride vaccine (MPSV4) DoD typhoid Vi capsular polysaccharid e vaccine 1 1999 UNK 101 Sanofi Pasteur (PMC) complet ed typhoid Vi capsular polysacch aride vaccine DoD hepatitis A vaccine, adult dosage 2 1996 UNK 52 Unknown (UNK) comple t ed hepatitis A vaccine, adult dosage DoD typhoid Vi capsular polysaccharid e vaccine 1 1996 UNK 101 Sanofi Pasteur (PMC) complet ed typhoid Vi capsular polysacch aride vaccine DoD hepatitis A vaccine, adult dosage 1 1994 UNK 52 Unknown (UNK) comple t ed hepatitis A vaccine, adult dosage DoD yellow fever vaccine 0 1993 UNK 37 Unknown (UNK) comple t ed yellow fever vaccine DoD typhoid Vi capsular polysaccharid e vaccine 1 1993 UNK 101 Sanofi Pasteur (PMC) complet ed typhoid Vi capsular polysacch aride vaccine DoD measles, mumps and rubella virus vaccine 0 1992 UNK 03 Unknown (UNK) comple t ed measles, mumps and rubella virus vaccine DoD poliovirus vaccine, inactivated 0 1992 UNK 10 Unknown (UNK) comple t ed polioviru s vaccine, inactivat ed DoD Encounters Combined list of: 1) Encounters from Department of Veterans Affairs facilities going back up to thelast 18 months. 2) Encounters from the Department of Defense facilities going back up to 280 months. Location Location Details Encounter Type Encounter Number Reason For Visit Attending Provider ADM Date DC Date Status [facility] Optometry ) OUTPATIENT [id number] routine exam FLACO YE 03/07 Released w/o Limitations [facility] Optomet ry) Monty Gray [place]([facility]) OUTPATIENT [id number] Post Militar y Inproce POLINA Isaacs 10/01 Released w/o Limitations [facility] , NIKKI[facility] Monty Gray, NIKKI(Health Promotion s) OUTPATIENT [id number] inproce ssing LENNIE FLORES 10/01 Released w/o Limitations [facility]al th Promoti ons) Monty Gray Kushal, ([facility]) OUTPATIENT [id number] Annual Screeni LEIGHANN Mckinnon R 01/25 Released w/o Limitations [facility] , NIKKI(Occu pationa l Health FBGA) Monty Gray, (Optome try) OUTPATIENT [id number] eye exam ZAINA PHAM 01/28 Released w/o Limitations Monty Gray Kushal NIKKI(Opto metry) Monty Gray, NIKKI(Surger y) OUTPATIENT [id number] walk-in DEVANTE JUAREZ 06/26 Released w/o Limitations [facility](Surg todd) [facility]) OUTPATIENT [id number] BALAJI MONTE 02/12 Released w/o Limitations [facility]) [facility] Kush[facility], NIKKI([facility]) OUTPATIENT [id number] PCS (Audio) POLINA KU 07/28 Released w/o Limitations [facility]) [facility] Ambulator y [facility]) OUTPATIENT [id number] PCS THERESA MATHEW 07/29 Released w/o Limitations Monty Gray , NIKKI([facility] Ambulat ory Primary Clinic) Monty Gray, NIKKI(Infect ious Disease) OUTPATIENT [id number] HIV TAMMIE DUTTON 07/30 Released w/o Limitations Monty Gray , NIKKI(Infe ctious Disease ) [facility] [place]([facility]) OUTPATIENT [id number] Inproce ssing- PPD DANY HORVATH 09/07 Released w/o Limitations [facility] Mallroie JORDAN([facility]) [facility] Mallorie JORDAN(Soldie r Readiness Procedure ) OUTPATIENT [id number] [facility], desi marUYEN MERCADOGY 09/11 Released w/o Limitations [facility] Mallorie JORDAN(Sold ier Readine ss Procedu re) [facility] Mallorie JORDAN(Optome try [facility]) OUTPATIENT [id number] ORDER for [facility] ROSA LEMUS Elsi 09/11 Released w/o Limitations [facility] Mallorie JORDAN(Opto metry [facility]) [facility] Mallorie JORDAN(Medica l Exam Rayo) OUTPATIENT [id number] pha part 2 TESSA MAGAÑAMORELIA M 09/17 Released w/o Limitations [facility] Mallorie JORDAN(Medi sudarshan Exam Amanda y) [facility] Mallorie JORDAN(Medica l Exam Rayo) OUTPATIENT [id number] pha part 3 LAKEISHA HERNANDEZ M 09/25 Released w/o Limitations [facility] Mallorie JORDAN(Medi sudarshan Exam Huger y) [facility] Mallorie JORDAN(Soldie r Readiness Procedure ) OUTPATIENT [id number] [facility] SARITA HAHN 09/25 Released w/o Limitations [facility] Mallorie JORDAN(Sold ier Readine ss Procedu re) [facility] Mallorie JORDAN([facility]) OUTPATIENT [id number] ADM AVELINAJAVIERJOHN S 09/25 Released w/o Limitations [facility] Mallorie JORDAN([facility]) Theater Facility OUTPATIENT [id number] 04/21 Released w/o Limitations Theater Facilit y Theater Facility OUTPATIENT [id number] 08/20 Released w/o Limitations Theater Facilit y [facility] Mallorie JORDAN(Primar y Care #4 Readiness ) OUTPATIENT [id number] need referra l RASHAUN SANDOVALN 11/08 Released with Work/Duty Limitations [facility] [place] JORDAN(Prim negin Care #4 Readine ss) [facility] [place] JORDAN(Cardio logy) OUTPATIENT [id number] NEW APPT ELIJAH MANRIQUEZ A 11/24 Released w/o Limitations [facility] [place](Card iology) [facility] [place](Cardio logy) OUTPATIENT [id number] STRESS (RAD) MELLISA DOSHI 11/26 Released w/o Limitations [facility] [place](Card iology) [facility] [place](Cardio logy) OUTPATIENT [id number] ARMANDO Man 11/26 Released w/o Limitations [facility] [place](Card iology) [facility] [place] OUTPATIENT [id number] post deploym ent GUNNARWALKER 11/30 Released w/o Limitations [facility] [place]) [facility] [place](Primar y Care #4 Readiness ) OUTPATIENT [id number] FLU SHOT YURIY SEGURA YODIT 01/05 Released w/o Limitations [facility] [place](Prim negin Care #4 Readine ss) [facility] [place](Cardio logy) OUTPATIENT [id number] F/U APPT DECLAN, DENA 01/11 Released w/o Limitations [facility] [place](Card iology) [facility] [place](Primar y Care #4 Readiness ) OUTPATIENT [id number] KNEE PAIN RASHAUN SANDOVALN 04/13 Released with Work/Duty Limitations [facility] [place](Prim negin Care #4 Readine ss) [facility] [employer](Primar y Care #4 Readiness ) OUTPATIENT [id number] pdhra NII SANDOVAL 05/13 Released w/o Limitations [facility] [place](Prim negin Care #4 Readine ss) [facility] [place] TELE CONSULT [id number] MRI results NII SANDOVAL 05/19 [facility] [place]4 Readine ss) [facility] [place] Read[place] OUTPATIENT [id number] SANDOVAL PT/TEST RESULTS NII SANDOVAL 05/26 Released with Work/Duty Limitations [facility] [place]4 Readine ss) [facility] villalba [facility] [place] [place]) [place]PAT[place] [id number] JOINT INSTABI LITY KNEE YULISSA BLACKWELL 06/07 Released w/o Limitations [facility] [place] [facility] [place]) OUTPATIENT [id number] 29Apr/l eft knee arthros copy YULISSA BLACKWELL 06/21 Released w/o Limitations [facility] [place]) [facility] [place] [place] [facility]) OUTPATIENT [id number] preop ROWDY SOARES 06/21 Released with Work/Duty Limitations [facility] [place] [facility]) [facility] [place] [facility]) OUTPATIENT [id number] JOHNATHAN VEGA 06/29 Released w/o Limitations [facility] [place]Phys [place] [facility]) [facility] [place] [place]Med[place] Exam Rayo) OUTPATIENT [id number] [facility] part2 JACKIE TITUS 06/29 Released w/o Limitations [facility] [place](Medi sudarshan Exam Huger y) [facility] [place]Ortho Cast) OUTPATIENT [id number] 29apr/l eft knee arthros copy CONTRACTOR , DHRUTI 07/08 Released w/o Limitations [facility] [place](Orth o Cast) [facility] [place](Medica l Exam Rayo) OUTPATIENT [id number] Part 3 PHA LAKEISHA HERNANDEZ 07/11 Released w/o Limitations [facility] [place] [place](Medi sudarshan Exam Amanda y) [facility] [place](Physic al Therapy [facility]) OUTPATIENT [id number] f/u JOHNATHAN VEGA 07/13 Released w/o Limitations [facility] [place](Phys ical Therapy [facility]) [facility] [place](Physic al Therapy [facility]) OUTPATIENT [id number] rehab JANG, AMLA L 07/21 Released w/o Limitations [facility] [place](Phys ical Therapy [facility]) [facility] [place](Physic al Therapy [facility]) OUTPATIENT [id number] rehab JANG, ALMA L 07/26 Released w/o Limitations [facility] [place](Phys ical Therapy [facility]) [facility] [place](Orthop edic) OUTPATIENT [id number] follow up YULISSA BLACKWELL 08/05 Released w/o Limitations [facility] [place](Orth opedic) [facility] [place](Orthot ic Lab) OUTPATIENT [id number] ACL Deficie nt knee left CPT Ramador ai req ACL Knee Brace left ARABELLA CORREA 08/05 Released w/o Limitations [facility] [place](Orth otic Lab) [facility] [place] [facility]) OUTPATIENT [id number] [facility] 08[facility]22 Released with Work/Duty Limitations [facility] [facility]) [facility] [place] [facility]) OUTPATIENT [id number] [facility] 08[facility]24 Released with Work/Duty Limitations [facility] [place] [facility]) [facility] [place] [place] [facility]) OUTPATIENT [id number] [facility] 08/31 Released with Work/Duty Limitations [facility] [place] [place] [facility]) [facility] [place] [facility]) OUTPATIENT [id number] [facility] 09/06 Released with Work/Duty Limitations [facility] [place] [facility]) [facility] [place] [facility]) OUTPATIENT [id number] [facility] 09/08 Released with Work/Duty Limitations [facility] [place] [place] [facility]) [facility] [place] TELE CONSULT [id number] LAKEISHA THEODORE 09/16 [facility] [place] [place] [place] [facility]) OUTPATIENT [id number] JOHNATHAN VEGA 09/21 Released w/o Limitations [facility] [place] [facility]) [facility] [place] [facility]) OUTPATIENT [id number] [facility] 09/28 Released with Work/Duty Limitations [facility] [place] [facility]) [facility] vill[facility] [place] [facility]) OUTPATIENT [id number] rehab [facility] 10/05 Released with Work/Duty Limitations [facility]iena Camposo [facility] [place] [facility]) [facility] [place] [facility]) OUTPATIENT [id number] rehab/h all patient SHWETA MORRISON Armando 10/07 Released with Work/Duty Limitations [facility] Camposo [facility] [place] [facility]) [facility] [place] [facility]) OUTPATIENT [id number] rehab [facility] 10/11 Released with Work/Duty Limitations Siena Grant [facility] [place] [facility]) [facility] [place]4 Readiness ) OUTPATIENT [id number] ferr/ri ght heel pain NII SANDOVAL 10/12 Released with Work/Duty Limitations [facility] [place] neg[place] #4 Readine ss) [facility] [facility]) OUTPATIENT [id number] [facility] Luana 10/19 Released with Work/Duty Limitations [facility]a Grant [facility] [place] [facility]) [facility] [place] [facility]) OUTPATIENT [id number] f/u JOHNATHAN VEGA 10/21 Released w/o Limitations [facility]a Grant [facility] [place] [facility]) iSena Joyae r [facility] [place] [facility]) OUTPATIENT [id number] f/up JOHNATHAN VEGA 11/25 Released w/o Limitations [facility]iena Grant [facility] [place] [facility]) [facility] [place]Prim[place] #4 Readiness ) OUTPATIENT [id number] profile NII SANDOVAL 12/13 Released w/o Limitations [facility] [place](Prim negin Care #4 Readine ss) [facility] [place](Physic al Therapy [facility]) OUTPATIENT [id number] JOELKATTY RUBINTOAN Cal[place] 12/13 Released w/o Limitations [facility] [place](Phys ical Therapy [facility]) [facility] [place](Primar y Care #4 Readiness ) OUTPATIENT [id number] follow up/prof NII Borges 12/20 Released w/o Limitations [facility] [place](Prim negin Care #4 Readine ss) [facility] vill[facility] [place](Cardio logy) OUTPATIENT [id number] f/u ELIJAH MANRIQUEZ 12/22 Released w/o Limitations [facility] [place](Card iology) [facility]iena villalba [facility] [place](Primar y Care #4 Readiness ) OUTPATIENT [id number] profile update NII SANDOVAL 12/26 Released with Work/Duty Limitations [facility] [place](Prim negin Care #4 Readine ss) [facility] vill[facility] [place](Emerge ncy Med Care) OUTPATIENT [id number] CE LIMON 01/24 Released w/o Limitations [facility] [place](Sandy gency Med Care) [facility] [place](Cardio logy) TELE CONSULT [id number] Lipitor ELIJAH MANRIQUEZ A 05/21 [facility] [place](Card iology) [facility](Op tometry Cl FB) OUTPATIENT [id number] eye exam ANTONIETTA GAMING 10/25 Released w/o Limitations [facility]( Optomet ry Cl FB) [facility](Op tometry Cl FB) OUTPATIENT [id number] FU dfe ANTONIETTA GAMING 12/07 Released w/o Limitations [facility]( Optomet ry Cl FB) [facility](Fa joanna Practice Green FB) OUTPATIENT [id number] pha per pt LULA MITCHELL N 12/19 Released w/o Limitations [facility]( Family Practic e [facility]) [facility] [place] (Fam Pra [facility])) OUTPATIENT [id number] f/u from previou s visit LULA MITCHELL N 01/02 Released w/o Limitations [facility]( [facility] [place] (Fam Pra [place] [facility])) [facility](Im munizatio n Clinic Be) OUTPATIENT [id number] PALOMO SHIN 01/04 Released w/o Limitations [facility]( Immuniz ation Clinic Be) [facility](Re fract Eye Cl FB) OUTPATIENT [id number] study screeni YURIY Anand 01/11 Released w/o Limitations [facility]( Refract Eye Cl FB) [facility](Re fract Eye Cl FB) OUTPATIENT [id number] Notes Entered by: TRUDI ARMAS 24 Jan 2012 0800 ------- ------- ------- ------- -- STUDY PREOP YURIY PIKE 01/23 Released w/o Limitations [facility]( Refract Eye Cl FB) [facility](Op hthalmolo gy CRS [place]) OUTPATIENT [id number] Notes Entered by: ARIELA BOSS 30 Jan 2012 0908 ------- ------- ------- ------- -- PROC BEATRIZ CASTRO 01/29 Sick at Home/Quarter s [facility]( Ophthal mology CRS [place] a) [facility](Re fract Eye Cl FB) OUTPATIENT [id number] 1 day post op YURIY PIKE 01/31 Released w/o Limitations [facility]( Refract Eye Cl FB) [facility](Re fract Eye Cl FB) OUTPATIENT [id number] Notes Entered by: TRUDI ARMAS 06 Feb 2012 1302 ------- ------- ------- ------- -- STUDY 1 WEEK YURIY PIKE 02/05 Released w/o Limitations [facility]( Refract Eye Cl FB) [facility](Or thopedics Sports Cl FB) OUTPATIENT [id number] CHONDRO MALACIA KNEE MITALI ONEILL 02/13 Released w/o Limitations [facility]( Orthope dics Sports Cl FB) [facility] [place] (Fam Pra [place] [facility])) TELE CONSULT [id number] Notes Entered by: LULA MITCHELL 23 Feb 2012 1054 ------- ------- ------- ------- -- F/u on SAMANTHA VAN Covarrubias P 02/22 [facility]( [facility] [place] (Fam Pra [place] [facility])) [facility](Re fract Eye Cl FB) OUTPATIENT [id number] STUDY 1 MONTH F/U LEONEL GRESHAM 03/06 Released w/o Limitations [facility]( Refract Eye Cl FB) [facility](Or tho General Cl FB) OUTPATIENT [id number] Hylan injecti on MITALI ONEILL 03/11 Released w/o Limitations [facility]( Ortho General Cl FB) [facility](Or tho General Cl FB) OUTPATIENT [id number] F/U LT KNEE MITALI ONEILL 03/25 Released w/o Limitations [facility]( Ortho General Cl FB) [facility](Or tho General Cl FB) OUTPATIENT [id number] LT knee injecti on MITALI ONEILL 04/02 Released w/o Limitations [facility]( Ortho General Cl FB) [facility] [place] (Fam Pra [place] [facility])) TELE CONSULT [id number] Notes Entered by: KINZA CONTRERAS 17 Apr 2012 1230 ------- ------- ------- ------- -- LULA Ugarte 04/17 [facility]( [facility] [place] (Fam Pra [place] [facility])) [facility] [place] (Fam Pra [place] FB)) TELE CONSULT [id number] Notes Entered by: LULA MITCHELL 23 Apr 2012 2313 ------- ------- ------- ------- -- F/u on HOLLAND WITT 04/24 [facility]( [facility] [place] (Fam Pra [place] [facility])) [facility](Re fract Eye Cl FB) OUTPATIENT [id number] STUDY 3 MONTH LEONEL GRESHAM Arnulfo 04/24 Released w/o Limitations [facility]( Refract Eye Cl FB) [facility](Ge n Surg Cl FB) OUTPATIENT [id number] ight forearm volar aspect mass LUND, DE Q 05/06 Released w/o Limitations [facility]( Gen Surg Cl FB) [facility](Ca rdiolog Cl FB) OUTPATIENT [id number] Notes Entered by: LEIDY MESA JR 16 May 2012 1440 ------- ------- ------- ------- -- pre-op ekg reading only JOSIAS DAVIDSON 05/16 Released w/o Limitations [facility]( Cardiol og Cl FB) [facility](Or tho General Cl FB) OUTPATIENT [id number] F/U LT KNEE MITALI ONEILL 05/20 Released w/o Limitations [facility]( Ortho General Cl FB) [facility] [place] (Fam [facility] [place] [facility])) TELE CONSULT [id number] Notes Entered by: Luana CARABALLO 23 May 2012 1113 ------- ------- ------- ------- -- Pt sent RH message request ing sleep study VAN CARABALLO 05/23 [facility]( [facility] [place] (Fam [facility] [place] [facility])) [facility](Ge n Surg Cl FB) OUTPATIENT [id number] POP: dos Apr/Exc lipoma Rt forearm LUND, DE Q 06/03 Released w/o Limitations [facility]( Gen Surg Cl FB) [facility] [place] (Fam Pra [place] FB)) TELE CONSULT [id number] Notes Entered by: KINZA CONTRERAS 19 Jun 2012 1423 ------- ------- ------- ------- -- Referra castillo for sleep study LULA MITCHELL N 06/19 [facility]( [facility] [place] (Fam Pra [place] FB)) [facility](Re fract Eye Cl FB) OUTPATIENT [id number] STUDY 6 MONTH YURIY PIKE 07/24 Released w/o Limitations [facility]( Refract Eye Cl FB) [facility] [place] (Fam Pra [place] FB)) OUTPATIENT [id number] er followu p;back pain LULA MITCHELL N 09/02 Released w/o Limitations [facility]( [facility] [place] (Fam [facility] [place] [facility])) [facility] [place] (Fam Pra [place] [facility])) TELE CONSULT [id number] Notes Entered by: LULA MITCHELL N 05 Sep 2012 0432 ------- ------- ------- ------- -- Follow up from last visit LULA MITCHELL N 09/05 [facility]( [facility] [place] (Fam [facility] [place] [facility])) [facility] [place] (Fam [facility] [place] [facility])) OUTPATIENT [id number] Notes Entered by: LEXI RODRIGUEZ 09 Sep 2012 1125 ------- ------- ------- ------- -- blood pressur e check day1 ANTOLIN VILLANUEVA 09/09 Released w/o Limitations [facility]( [facility] [place] (Fam [facility] [place] [facility])) [facility] [place] (Fam Pra [place] FB)) OUTPATIENT [id number] Notes Entered by: Lj LR 10 Sep 2012 1116 ------- ------- ------- ------- -- Juan 2, BP check HOLLAND MAZA 09/10 Released w/o Limitations [facility]( [facility] [place] (Fam [facility] [place] [facility])) [facility] [place] (Fam Pra [place] [facility])) TELE CONSULT [id number] Notes Entered by: LULA MITCHELL 23 Sep 2012 2239 ------- ------- ------- ------- -- F/u on lab results SHEELA REALETTE 09/24 [facility]( [facility] [place] (Fam [facility] [place] [facility])) [facility](Ph ys Therapy FB) OUTPATIENT [id number] HERNIAT ED DISC (L5 - S1) JOSE FISH 10/16 Released w/o Limitations [facility]( Phys Therapy FB) [facility](Ph ys Therapy FB) OUTPATIENT [id number] SILAS ELAINE 10/23 Released w/o Limitations [facility]( Phys Therapy FB) [facility](Ph ys Therapy FB) OUTPATIENT [id number] ELIJAH FLEMING 10/31 Released w/o Limitations [facility]( Phys Therapy FB) [facility](Ph ys Therapy FB) OUTPATIENT [id number] FRIDA SQUIRES 11/01 Released w/o Limitations [facility]( Phys Therapy FB) [facility](Ph ys Therapy FB) OUTPATIENT [id number] STEVEN RENAE 11/04 Released w/o Limitations [facility]( Phys Therapy FB) [facility](Ph ys Therapy FB) OUTPATIENT [id number] STEVEN RENAE 11/06 Released w/o Limitations [facility]( Phys Therapy FB) [facility](Ph ys Therapy FB) OUTPATIENT [id number] f/u JOSE FISH 11/20 Released w/o Limitations [facility]( Phys Therapy FB) [facility](Im munizatio n FB) OUTPATIENT [id number] Notes Entered by: KAMINI COLBERT 04 Dec 2012 0922 ------- ------- ------- ------- -- Flu Mist HEATHER DUGGAN 12/04 Released w/o Limitations [facility]( Immuniz ation FB) [facility](Re fract Eye Cl FB) OUTPATIENT [id number] STUDY 12 MONTH YURIY PIKE 01/02 Released w/o Limitations [facility]( Refract Eye Cl FB) [facility] [place] (Fam Pra [place] FB)) TELE CONSULT [id number] Notes Entered by: LETHA BRAVO 20 Jan 2013 0900 ------- ------- ------- ------- -- SHEELA Mckeon 01/20 [facility]( [facility] [place] (Fam Pra [place] [facility])) [facility] [place] (Fam Pra [place] FB)) OUTPATIENT [id number] PT 2 KULWANT SAAVEDRA 01/21 Immediate Referral [facility]( [facility] [place] (Fam [facility] [place] [facility])) [facility](Ca rdiolog Cl FB) OUTPATIENT [id number] angina, prior nstemi IHSAN SERNA 03/03 Released w/o Limitations [facility]( Cardiol og Cl FB) [facility](Ca rdiolog Cl FB) TELE CONSULT [id number] Notes Entered by: IHSAN SERNA 03 Mar 20132025 ------- ------- ------- ------- -- additio nal blood tests ordered IHSAN SERNA 03/04 [facility]( Cardiol og Cl FB) [facility](Ca rdiolog Cl FB) OUTPATIENT [id number] ELIJAH Bingham 03/10 Released w/o Limitations [facility]( Cardiol og Cl FB) [facility](Ca rdiolog Cl FB) OUTPATIENT [id number] STRESS TEST - PER JORGE BUSTILLOS 03/10 Released w/o Limitations [facility]( Cardiol og Cl FB) [facility](Al lergy Cl FB) OUTPATIENT [id number] Notes Entered by: WILI ASHER 13 Mar 2013 0801 ------- ------- ------- ------- -- ROBBY Grimaldo 03/13 Released w/o Limitations [facility]( Allergy Cl FB) [facility] [place] (Fam Pra [facility] FB)) TELE CONSULT [id number] Notes Entered by: Stacie REAL 20 Mar 2013 1131 ------- ------- ------- ------- -- Profile update SHEELA REAL 03/20 Referred for Appointment [facility]( [facility] [place] (Fam [facility] [place] [facility])) [facility](Ca rdiolog Cl FB) OUTPATIENT [id number] F/U IHSAN SERNA 03/24 Released w/o Limitations [facility]( Cardiol og Cl FB) [facility](Ca rdiolog Cl FB) TELE CONSULT [id number] Notes Entered by: IHSAN SERNA 03 Apr 2013 1739 ------- ------- ------- ------- -- MPS TEST RESULTS AND PLAN IHSAN SERNA 04/03 [facility]( Cardiol og Cl FB) [facility](GI Clinic [place]) OUTPATIENT [id number] chronic elevate d LFTS in man with also elev ferriti n OTTONIEL ALVARADO 06/16 Released w/o Limitations [facility]( GI Clinic [facility]) [facility](Fa Practice ) OUTPATIENT [id number] Notes Entered by: SABINA BRODERICK 24 Jun 2013 0639 ------- ------- ------- ------- -- ear and headach e ABENA MCCORD 06/24 Sick at Home/Quarter s [facility]( Fam Practic e FB) [facility](Fa m Practice FB) OUTPATIENT [id number] Notes Entered by: SABINA BRODERICK 25 Jun 2013 0635 ------- ------- ------- ------- -- f-up on ear pain ABENA MCCORD 06/25 Released w/o Limitations [facility]( Fam Practic e FB) [facility](Ot olaryng Cl FB) OUTPATIENT [id number] SKIN ABSCESS OF RIGHT EAR HEIDI LONG 06/25 Released w/o Limitations [facility]( Otolary ng Cl FB) [facility](Ot olaryng Cl FB) OUTPATIENT [id number] 1 week f/u Skinn Abscess of right ear Seen DUYEN Spain 07/04 Released w/o Limitations [facility]( Otolary ng Cl FB) [facility] TELE CONSULT [id number] OTTONIEL ALVARADO 07/07 [facility]( [facility]) [facility]) TELE CONSULT [id number] Notes Entered by: DANIELA MARLEY 08 Jul 2013 1021 ------- ------- ------- ------- -- Attempt ed to schedul e liver bx. TERESA HOLGUIN 07/08 [facility]( [facility]) [facility] TELE CONSULT [id number] Notes Entered by: SARITA MEAD 01 Aug 2013 1907 ------- ------- ------- ------- -- Liver biopsy need updated INR/plt count SARITA MEAD 08/01 [facility]) [facility](Ot olaryng Cl FB) OUTPATIENT [id number] follow up DUYEN OROSCO 08/11 Released w/o Limitations [facility]( Otolary ng [facility]) [facility]) TELE CONSULT [id number] Notes Entered by: Trae JACOME 25 Aug 2013 1308 ------- ------- ------- ------- -- Liver biopsy results ANIA JACOME 08/25 [facility]( [facility]) [facility](Sl eep (Pulm) Cl Be) OUTPATIENT [id number] Obstruc tive sleep apnea KAY KABA 09/04 Released w/o Limitations [facility]( Sleep (Pulm) Cl Be) [facility] [place] ([facility])) OUTPATIENT [id number] knee pain ROYER CHAMBERLAIN 11/28 Released w/o Limitations [facility]( [facility] [place] (Fam [facility] [place] [facility])) [facility](Or thotics Clinic FB) OUTPATIENT [id number] Notes Entered by: FATUMA FANG 03 Dec 2013 1120 ------- ------- ------- ------- -- KNEE SLEEVE JIA COLLAZO 12/03 Released w/o Limitations [facility]( Orthoti cs Clinic FB) [facility] [place] ([facility]am [facility] [place] [facility])) TELE CONSULT [id number] Notes Entered by: AGATHA CHAMBERLAIN 03 Dec 2013 1406 ------- ------- ------- ------- -- TERRENCE Lemons 12/03 Advice Assessment [facility]( [facility] [place] (Fam Pra [place] [facility])) [facility](Co mm Health FB) OUTPATIENT [id number] Notes Entered by: Cristobal CHAVIS 24 Dec 2013 0957 ------- ------- ------- ------- -- FLU SHOT JSC HEATHER ADAMS 12/24 Released w/o Limitations [facility]( Comm Health FB) [facility](Al lergy Cl FB) OUTPATIENT [id number] shot update EMMETT FOX 01/28 Released w/o Limitations [facility]( Allergy Cl FB) [facility] [place] (Fam Pra White FB)) OUTPATIENT [id number] PHA ROYER CHAMBERLAIN 03/02 Released w/o Limitations [facility]( [facility] [place] (Fam Pra White FB)) [facility](Al lergy Cl FB) OUTPATIENT [id number] Notes Entered by: ESPERANZA GARCIA 05 Mar 2014 1042 ------- ------- ------- ------- -- titer check EMMETT FOX 03/05 Released w/o Limitations [facility]( Allergy Cl FB) [facility] [place] (Fam Pra [place] FB)) TELE CONSULT [id number] Notes Entered by: AGATHA CHAMBERLAIN 05 Mar 2014 1558 ------- ------- ------- ------- -- NORMAN Grey 03/05 [facility]( [facility] [place] (Fam Pra [facility] FB)) [facility] [place] (Fam Pra [place] FB)) OUTPATIENT [id number] pha ROYER CHAMBERLAIN 03/06 Released w/o Limitations [facility]( [facility] [place] (Fam Pra [facility] FB)) [facility] [place] (Fam Pra [facility] FB)) OUTPATIENT [id number] f/u ROYER CHAMBERLAIN 03/09 Released w/o Limitations [facility]( [facility] [place] (Fam Pra [facility] FB)) [facility](Ca rdiolog Cl FB) OUTPATIENT [id number] ANEURYS M OF THE AORTIC ROOT, HTN,CAD ,hyperl ipidemi JULIAN Keyes 03/23 Released w/o Limitations [facility]( Cardiol og Cl FB) [facility] [place] (Fam Pra [facility] FB)) OUTPATIENT [id number] BACK PAIN LONG OSORIO 06/30 Released w/o Limitations [facility]( [facility] [place] (Fam Pra [facility] FB)) [employer] [facility] [facility]) OUTPATIENT [id number] Chronic Back Pain DUYEN FLORIAN 11/06 Released w/o Limitations [employer] [facility] [facility]) [employer] [facility] [facility]) OUTPATIENT [id number] Shoulde r pain ELIJAH BOLES 01/12 Released with Work/Duty Limitations [employer] [place] [place] [facility] Facility OUTPATIENT [id number] 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 Released w/o Limitations [facility] OUTPATIENT [id number] 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 05/29 Released w/o Limitations [facility] OUTPATIENT [id number] 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 05/31 Released w/o Limitations Theater Facilit y [employer] ([facility]) OUTPATIENT [id number] Notes Entered by: Cristobal FISHER 08 Aug 201637 ------- ------- ------- ------- -- DME consult and med refill GUNNAR FISHER 08/08 Released w/o Limitations [employer] ([facility] ) [employer] ([facility])([place]) TELE CONSULT [id number] Notes Entered by: Cristobal FISHER 15 Aug 201637 ------- ------- ------- ------- -- med refill GUNNAR FISHER 08/15 [employer] ([facility] ) [employer] ([facility])([place]) OUTPATIENT [id number] Notes Entered by: Cristobal FISHER 16 Aug 2016 0847 ------- ------- ------- ------- -- med refill GUNNAR FISHER 08/16 Released w/o Limitations [employer] ([facility] ) [employer] ([facility])(Inte rnal Medicine) OUTPATIENT [id number] Hematur ia, unspeci STAS Duncan 08/30 Released w/o Limitations [employer] ([facility])(In ternal Medicin e) [employer] ([facility])([facility]) OUTPATIENT [id number] knee pain [place] JONES 10/19 Released w/o Limitations [facility]AM H M05C WFM Res) [facility]Orth opedics) OUTPATIENT [id number] Pain in left knee CAT BLAKE 11/14 Released w/o Limitations [employer] [facility])(Or mary ellen cs) [facility] [facility]Orth opedics[facility] OUTPATIENT [id number] lt knee f/u CAT BLAKE 12/18 Released w/o Limitations [facility] [facility] [facility]Or thopedi cs) [facility]Orth [facility]edics) OUTPATIENT [id number] F/U/per Patric/ surgica l sheridanal JESUS DUNLAP 01/11 Released w/o Limitations [facility] [facility] [facility]Or thopedi cs) [facility]Orth opedics) OUTPATIENT [id number] Preop Left knee Dos: 2017 JESUS DUNLAP 03/08 Released w/o Limitations [facility] [facility] [facility]Or thopedi cs) [facility]Phys Therapy) OUTPATIENT [id number] POLINA Damon 03/08 Released w/o Limitations [facility] [facility]Ph ys Therapy ) [facility]Phys Therapy) OUTPATIENT [id number] post op left knee THERESA CRESPO 03/19 Released w/o Limitations [facility] [facility]Ph [facility]s [facility] ) [facility]Orth opedics) OUTPATIENT [id number] POST-OP /DOS-Mar.15/ Knee/Dr Frederic Dunlap patient BLANCA CASTILLO 03/26 Released with Work/Duty Limitations [employer] [facility])(Or thopedi cs) [facility]Phys Therapy) OUTPATIENT [id number] MINOR BUTLER 03/30 Released w/o Limitations [facility] [facility]Ph ys Therapy ) [facility]Phys Therapy) OUTPATIENT [id number] MINOR BUTLER 04/02 Released w/o Limitations [facility] [facility]Ph [facility]s Therapy ) [facility] Therapy) OUTPATIENT [id number] f/u on L Knee THERESA CRESPO. 04/18 Released w/o Limitations [facility]Ph [facility]s [facility] ) [facility]Phys Therapy) OUTPATIENT [id number] YURIY CHENG 04/20 Released w/o Limitations [facility] [facility]Ph [facility]s [facility] ) [facility]Phys Therapy) TELE CONSULT [id number] Notes Entered by: Norbert SNEED 25 Apr 2017 1708 ------- ------- ------- ------- -- ELIJAH Weldon 04/25 [facility]Ph [facility]s [facility] ) [facility]Phys Therapy) OUTPATIENT [id number] MYRIAM LING 04/27 Released w/o Limitations [facility] [facility]Ph [facility]s Therapy ) [facility]Phys Therapy) OUTPATIENT [id number] GEETA ACOSTA 04/30 Released w/o Limitations [facility]Ph ys Therapy ) [facility]Orth opedics) OUTPATIENT [id number] DOS mar 14 Dunlap /right knee/ resched ule from Apr BLANCA CASTILLO 05/03 Released with Work/Duty Limitations [employer] [facility] [facility])(Or thopedi cs) [facility]Phys Therapy) OUTPATIENT [id number] RODERICK WEBB 05/03 Released w/o Limitations [facility] [facility]Ph [facility]s Therapy ) [facility]Phys Therapy) OUTPATIENT [id number] RODERICK WEBB 05/11 Released w/o Limitations [facility] [facility]Ph [facility]s Therapy ) [facility]Phys Therapy) OUTPATIENT [id number] RODERICK WEBB 05/14 Released w/o Limitations [facility] [facility]Ph [facility]s Therapy ) [facility]Phys Therapy) OUTPATIENT [id number] f/u THERESA Ortega 05/16 Released w/o Limitations [facility] [facility]Ph [facility]s Therapy ) [facility]Phys Therapy) OUTPATIENT [id number] NASRIN HUSTON 05/30 Released w/o Limitations [facility] [facility]Ph ys Therapy ) [facility]Phys Therapy) OUTPATIENT [id number] NASRIN HSUTON 06/04 Released w/o Limitations [facility] [facility]Ph ys Therapy ) [facility]Phys Therapy) OUTPATIENT [id number] MYRIAM LING 06/07 Released w/o Limitations [facility]Ph [facility]s Therapy ) [facility] Therapy) OUTPATIENT [id number] ANNABELLE SEGURA 06/14 Released w/o Limitations [facility]Ph ys Therapy ) [facility] [place]) OUTPATIENT [id number] 6 flu THOMPSON FAJARDO 01/24 Released w/o Limitations [facility] [facility] [facility])(AM H 3A [facility] [place]) [facility] [facility]) OUTPATIENT [id number] 7 Notes Entered by: Armando KENNEDY 24 Jan 2018 1339 ------- ------- ------- ------- -- Annual MATT ARMSTRONG 01/24 Released w/o Limitations [facility] [facility]Ar Hearing Program ) [facility] Nancy) OUTPATIENT [id number] 5 Notes Entered by: INÉS MILTON IN 06 Mar 2018 0912 ------- ------- ------- ------- -- [facility] 2 GUNNAR FISHER 03/06 Released w/o Limitations [facility] [facility])(AM H M03E [facility] Nancy) [facility])(Mitch Alonzo) TELE CONSULT [id number] Notes Entered by: Cristobal FISHER 22 Mar 2018 0954 ------- ------- ------- ------- -- med GUNNAR Trevizo 03/22 [facility]Ca yuri Alonzo ) [facility]Mateo roenterol ogy) OUTPATIENT [id number] Encount er for screeni ng for maligna nt neoplas m of colon LOU CRUZ M 05/06 Released w/o Limitations [facility])(Ga stroent erology ) [facility]Phys Exam) OUTPATIENT [id number] 7 RTMT ARTHUR FRAZIER 07/05 Released with Work/Duty Limitations [facility] [facility]Ph ys Exam) [facility]Phys Exam) OUTPATIENT [id number] 5 Notes Entered by: JACKIE GALVAN 16 Oct 2018 0655 ------- ------- ------- ------- -- F/U RTMT ARTHUR FRAZIER 10/16 Released with Work/Duty Limitations [facility] [facility]Ph ys Exam) [facility] M03E [facility] Nancy) OUTPATIENT [id number] 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 Procedure Procedure Type Code Date Perfomer Comments Sourc e COLLECTION OF VENOUS BLOOD BY VENIPUNCTURE 2008 DoD SCREENING TEST, PURE TONE, AIR ONLY 2008 DoD IMMUNIZATION ADMINISTRATION BY INTRANASAL OR ORAL ROUTE; 1 VACCINE (SINGLE OR COMBINATION VACCINE/TOXOID) 2007 DoD FITTING OF SPECTACLES, EXCEPT FOR APHAKIA; MONOFOCAL 2006 [facility] SCREENING TEST OF VISUAL ACUITY, QUANTITATIVE, BILATERAL 2006 [facility] EAR PROTECTOR ATTENUATION MEASUREMENTS 2006 [facility] ELECTROCARDIOGRAM, ROUTINE ECG WITH AT LEAST 12 LEADS; WITH INTERPRETATION AND REPORT 2018 [facility] ELECTROCARDIOGRAM, ROUTINE ECG WITH AT LEAST 12 LEADS; WITH INTERPRETATION AND REPORT 2018 [facility] UNLISTED SPECIAL SERVICE, PROCEDURE OR REPORT 2018 [facility] ADMINISTRATION OF PATIENT-FOCUSED HEALTH RISK ASSESSMENT INSTRUMENT (EG, HEALTH HAZARD APPRAISAL) WITH SCORING AND DOCUMENTATION, PER STANDARDIZED INSTRUMENT 2018 [facility] PURE TONE AUDIOMETRY (THRESHOLD), AUTOMATED; AIR ONLY 2017 [facility] IMMUNIZATION ADMINISTRATION (INCLUDES PERCUTANEOUS, INTRADERMAL, SUBCUTANEOUS, OR INTRAMUSCULAR INJECTIONS); 1 VACCINE (SINGLE OR COMBINATION VACCINE/TOXOID) 2017 [facility] LIPID PANEL RESULTS DOCUMENTED AND REVIEWED (MUST INCLUDE TOTAL CHOLESTEROL, HDL-C, TRIGLYCERIDES AND CALCULATED LDL-C) (CAD) 2017 [facility] THERAPEUTIC PROCEDURE(S), GROUP (2 OR MORE INDIVIDUALS) 2017 [facility] THERAPEUTIC PROCEDURE(S), GROUP (2 OR MORE INDIVIDUALS) 2017 DoD THERAPEUTIC PROCEDURE, 1 OR MORE AREAS, EACH 15 MINUTES; THERAPEUTIC EXERCISES TO DEVELOP STRENGTH AND ENDURANCE, RANGE OF MOTION AND FLEXIBILITY 2017 DoD THERAPEUTIC PROCEDURE(S), GROUP (2 OR MORE INDIVIDUALS) 2017 DoD THERAPEUTIC PROCEDURE, 1 OR MORE AREAS, EACH 15 MINUTES; THERAPEUTIC EXERCISES TO DEVELOP STRENGTH AND ENDURANCE, RANGE OF MOTION AND FLEXIBILITY 2017 DoD THERAPEUTIC PROCEDURE, 1 OR MORE AREAS, EACH 15 MINUTES; THERAPEUTIC EXERCISES TO DEVELOP STRENGTH AND ENDURANCE, RANGE OF MOTION AND FLEXIBILITY 2017 DoD THERAPEUTIC PROCEDURE, 1 OR MORE AREAS, EACH 15 MINUTES; THERAPEUTIC EXERCISES TO DEVELOP STRENGTH AND ENDURANCE, RANGE OF MOTION AND FLEXIBILITY 2017 DoD THERAPEUTIC PROCEDURE(S), GROUP (2 OR MORE INDIVIDUALS) 2017 DoD THERAPEUTIC PROCEDURE, 1 OR MORE AREAS, EACH 15 MINUTES; THERAPEUTIC EXERCISES TO DEVELOP STRENGTH AND ENDURANCE, RANGE OF MOTION AND FLEXIBILITY 2017 DoD THERAPEUTIC PROCEDURE(S), GROUP (2 OR MORE INDIVIDUALS) 2017 [facility] THERAPEUTIC PROCEDURE(S), GROUP (2 OR MORE INDIVIDUALS) 2017 [facility] MANUAL THERAPY TECHNIQUES (EG, MOBILIZATION/ MANIPULATION, MANUAL LYMPHATIC DRAINAGE, MANUAL TRACTION), 1 OR MORE REGIONS, EACH 15 MINUTES 2017 [facility] THERAPEUTIC PROCEDURE(S), GROUP (2 OR MORE INDIVIDUALS) 2017 [facility] THERAPEUTIC PROCEDURE(S), GROUP (2 OR MORE INDIVIDUALS) 2017 [facility] THERAPEUTIC PROCEDURE, 1 OR MORE AREAS, EACH 15 MINUTES; THERAPEUTIC EXERCISES TO DEVELOP STRENGTH AND ENDURANCE, RANGE OF MOTION AND FLEXIBILITY 2017 [facility] UNLISTED SPECIAL SERVICE, PROCEDURE OR REPORT 2017 [facility] CRUTCHES UNDERARM, WOOD, ADJUSTABLE OR FIXED, PAIR, WITH PADS, TIPS AND HANDGRIPS 2017 [facility] SCREENING TEST OF VISUAL ACUITY, QUANTITATIVE, BILATERAL 2016 [facility] SCREENING TEST OF VISUAL ACUITY, QUANTITATIVE, BILATERAL 2015 [facility] PURE TONE AUDIOMETRY (THRESHOLD); AIR ONLY 2014 [facility] ELECTROCARDIOGRAM, ROUTINE ECG WITH AT LEAST 12 LEADS; WITH INTERPRETATION AND REPORT 2010 [facility] COMM/WRK REINTEGRAT TRAIN (EG,SHOPPING,TRANSPORT ATION,MONEY MANAGEMENT,AVOC ACT &/ WRK ENVIRON/MODIFICATION ANAL,WRK TASK ANAL,USE OF ASST TECHNOLOGY DEV/ADPT EQUIP),DIR ONE-ON-ONE CONT,EA 15 MINUTES 2010 [facility] INFLUENZA VIRUS VACCINE, TRIVALENT, LIVE (LAIV3), FOR INTRANASAL USE 2010 [facility] THERAPEUTIC PROCEDURE, 1 OR MORE AREAS, EACH 15 MINUTES; THERAPEUTIC EXERCISES TO DEVELOP STRENGTH AND ENDURANCE, RANGE OF MOTION AND FLEXIBILITY 2010 [facility] THERAPEUTIC ACTIVITIES, DIRECT (ONE-ON-ONE) PATIENT CONTACT (USE OF DYNAMIC ACTIVITIES TO IMPROVE FUNCTIONAL PERFORMANCE), EACH 15 MINUTES 2010 [facility] THERAPEUTIC ACTIVITIES, DIRECT (ONE-ON-ONE) PATIENT CONTACT (USE OF DYNAMIC ACTIVITIES TO IMPROVE FUNCTIONAL PERFORMANCE), EACH 15 MINUTES 2010 DoD THERAPEUTIC PROCEDURE, 1 OR MORE AREAS, EACH 15 MINUTES; THERAPEUTIC EXERCISES TO DEVELOP STRENGTH AND ENDURANCE, RANGE OF MOTION AND FLEXIBILITY 2010 DoD THERAPEUTIC PROCEDURE,1 OR MORE AREAS,EACH 15 MINUTES;NEUROMUSCULAR REEDUCATION OF MOVEMENT,BALANCE,COORD INATION,KINESTHETIC SENSE,POSTURE,AND/OR PROPRIOCEPTION FOR SITTING AND/OR STANDING ACTIVITIES 2010 DoD THERAPEUTIC PROCEDURE, 1 OR MORE AREAS, EACH 15 MINUTES; THERAPEUTIC EXERCISES TO DEVELOP STRENGTH AND ENDURANCE, RANGE OF MOTION AND FLEXIBILITY 2010 [facility] THERAPEUTIC ACTIVITIES, DIRECT (ONE-ON-ONE) PATIENT CONTACT (USE OF DYNAMIC ACTIVITIES TO IMPROVE FUNCTIONAL PERFORMANCE), EACH 15 MINUTES 2010 [facility] PHYSICAL THERAPY RE-EVALUATION 2010 [facility] THERAPEUTIC ACTIVITIES, DIRECT (ONE-ON-ONE) PATIENT CONTACT (USE OF DYNAMIC ACTIVITIES TO IMPROVE FUNCTIONAL PERFORMANCE), EACH 15 MINUTES 2010 [facility] THERAPEUTIC ACTIVITIES, DIRECT (ONE-ON-ONE) PATIENT CONTACT (USE OF DYNAMIC ACTIVITIES TO IMPROVE FUNCTIONAL PERFORMANCE), EACH 15 MINUTES 2010 [facility] THERAPEUTIC ACTIVITIES, DIRECT (ONE-ON-ONE) PATIENT CONTACT (USE OF DYNAMIC ACTIVITIES TO IMPROVE FUNCTIONAL PERFORMANCE), EACH 15 MINUTES 2010 [facility] THERAPEUTIC PROCEDURE, 1 OR MORE AREAS, EACH 15 MINUTES; THERAPEUTIC EXERCISES TO DEVELOP STRENGTH AND ENDURANCE, RANGE OF MOTION AND FLEXIBILITY 2010 [facility] SELF-CARE/HOME MANAGMENT TRAIN (EG,ACT OF DAILY LIVING (ADL) &COMPENSAT TRAIN,MEAL PREPARATION,SAFETY PROCS,AND INSTRUCT IN USE OF ASST TECHNOLOGY DEV/ADPT EQUIP) DIR ONE-ON-ONE CONT,EA 15 MINUTES 2010 [facility] ORTHOTIC(S) MANAGEMENT AND TRAINING (INCLUDING ASSESSMENT AND FITTING WHEN NOT OTHERWISE REPORTED),UPPER EXTREMITY(IES),LOWER EXTREMITY(IES) AND/OR TRUNK,INITIAL ORTHOTIC(S) ENCOUNTER,EACH 15 MINUTES 2010 [facility] POSTOPERATIVE FOLLOW-UP VISIT, NORMALLY INCLUDED IN THE SURGICAL PACKAGE, INDICATE THAT EVALUATION & MANAGEMENT SERVICE WAS PERFORMED DURING A POSTOPERATIVE PERIOD REASON RELATED ORIGINAL PROCEDURE 2010 [facility] THERAPEUTIC PROCEDURE, 1 OR MORE AREAS, EACH 15 MINUTES; THERAPEUTIC EXERCISES TO DEVELOP STRENGTH AND ENDURANCE, RANGE OF MOTION AND FLEXIBILITY 2010 [facility] THERAPEUTIC PROCEDURE,1 OR MORE AREAS,EACH 15 MINUTES;NEUROMUSCULAR REEDUCATION OF MOVEMENT,BALANCE,COORD INATION,KINESTHETIC SENSE,POSTURE,AND/OR PROPRIOCEPTION FOR SITTING AND/OR STANDING ACTIVITIES 2010 [facility] THERAPEUTIC ACTIVITIES, DIRECT (ONE-ON-ONE) PATIENT CONTACT (USE OF DYNAMIC ACTIVITIES TO IMPROVE FUNCTIONAL PERFORMANCE), EACH 15 MINUTES 2010 [facility] POSTOPERATIVE FOLLOW-UP VISIT, NORMALLY INCLUDED IN THE SURGICAL PACKAGE, INDICATE THAT EVALUATION & MANAGEMENT SERVICE WAS PERFORMED DURING A POSTOPERATIVE PERIOD REASON RELATED ORIGINAL PROCEDURE 2010 [facility] IMMUNIZATION ADMINISTRATION (INCLUDES PERCUTANEOUS, INTRADERMAL, SUBCUTANEOUS, OR INTRAMUSCULAR INJECTIONS); 1 VACCINE (SINGLE OR COMBINATION VACCINE/TOXOID) 2010 DoD SELF-CARE/HOME MANAGMENT TRAIN (EG,ACT OF DAILY LIVING (ADL) &COMPENSAT TRAIN,MEAL PREPARATION,SAFETY PROCS,AND INSTRUCT IN USE OF ASST TECHNOLOGY DEV/ADPT EQUIP) DIR ONE-ON-ONE CONT,EA 15 MINUTES 2010 DoD UNLISTED SPECIAL SERVICE, PROCEDURE OR REPORT 2010 [facility] SELF-CARE/HOME MANAGMENT TRAIN (EG,ACT OF DAILY LIVING (ADL) &COMPENSAT TRAIN,MEAL PREPARATION,SAFETY PROCS,AND INSTRUCT IN USE OF ASST TECHNOLOGY DEV/ADPT EQUIP) DIR ONE-ON-ONE CONT,EA 15 MINUTES 2010 DoD INFLUENZA VIRUS VACCINE, TRIVALENT (IIV3), SPLIT VIRUS, 0.5 ML DOSAGE, FOR INTRAMUSCULAR USE 2009 DoD SUPP &MATERIAL (EXCEPT SPECTACLE),PROVID,THE PHYS/OTH QUALIFIED HEALTH PLATEN DRIER OPERATOR OVER &ABOVE THOSE USUALLY INCLD W THE OFFICE VISIT/OTH SER RENDERED (LIST DRUG,TRAYS,SUPP,OR MATERIAL PROVID) 2009 [facility] ECHOCARDIOGRAPHY,TRANS THORACIC,REAL-TIME W IMAGE DOCUMENTATION (2D),INCLUDES M-MODE RECORDING,WHEN PERFORMED,COMPLETE,WIT H SPECTRAL DOPPLER ECHOCARDIOGRAPHY,AND W COLOR FLOW DOPPLER ECHOCARDIOGRAPHY 2009 [facility] CARDIOVASCULAR STRESS TEST USING MAXIMAL OR SUBMAXIMAL TREADMILL OR BICYCLE EXERCISE, CONTINOUS ELECTROCARDIOGRAPHIC MONITORING, PHARMACOLOGIC STRESS; INTERPRETATION AND REPORT ONLY 2009 [facility] ELECTROCARDIOGRAM, ROUTINE ECG WITH AT LEAST 12 LEADS; WITH INTERPRETATION AND REPORT 2009 [facility] 12-LEAD ECG PERFORMED (EM) 2008 DoD FITTING OF SPECTACLES, EXCEPT FOR APHAKIA; MONOFOCAL 2008 DoD TYPHOID VACCINE, ACETONE-KILLED, DRIED (AKD), FOR SUBCUTANEOUS USE (U.S. ) 2008 DoD IMMUNIZATION ADMINISTRATION (INCLUDES PERCUTANEOUS, INTRADERMAL, SUBCUTANEOUS, OR INTRAMUSCULAR INJECTIONS); 1 VACCINE (SINGLE OR COMBINATION VACCINE/TOXOID) 2008 DoD FITTING OF SPECTACLES, EXCEPT FOR APHAKIA; MONOFOCAL 2005 [facility] ELECTROCARDIOGRAM, ROUTINE ECG WITH AT LEAST 12 LEADS; WITH INTERPRETATION AND REPORT 2004 [facility] SKIN TEST; TUBERCULOSIS, INTRADERMAL 2003 [facility] THERAPEUTIC, PROPHYLACTIC OR DIAGNOSTIC INJECTION (SPECIFY MATERIAL INJECTED); SUBCUTANEOUS OR INTRAMUSCULAR 2002 DoD ANTHRAX VACCINE, FOR SUBCUTANEOUS OR INTRAMUSCULAR USE 2002 [facility] INFLUENZA VIRUS VACCINE, TRIVALENT (IIV3), SPLIT VIRUS, 0.5 ML DOSAGE, FOR INTRAMUSCULAR USE 2001 [facility] LEFT HEART CARDIAC CATHETERIZATION 2001 [facility] CARDIOVASCULAR STRESS TEST USING TREADMILL 2001 [facility] CORONARY ARTERIOGRAPHY USING TWO CATHETERS 2001 [facility] ANGIOCARDIOGRAPHY OF LEFT HEART STRUCTURES 2001 [facility] CARDIOVASCULAR STRESS TEST USING MAXIMAL OR SUBMAXIMAL TREADMILL OR BICYCLE EXERCISE,CONTINUOUS ELECTROCARDIOGRAPHIC MONITORING,&/ PHARMACOLOGICAL STRESS;SUPERVISION ONLY,W/O INTERPRETATION &REPORT 2001 [facility] ELECTROCARDIOGRAM, ROUTINE ECG WITH AT LEAST 12 LEADS; INTERPRETATION AND REPORT ONLY 2001 [facility] ELECTROCARDIOGRAM, ROUTINE ECG WITH AT LEAST 12 LEADS; WITH INTERPRETATION AND REPORT 2014 [facility] BLOOD PRESSURE MEASURED (CKD)(DM) 2014 [facility] IMMUNIZATION ADMINISTRATION (INCLUDES PERCUTANEOUS, INTRADERMAL, SUBCUTANEOUS, OR INTRAMUSCULAR INJECTIONS); 1 VACCINE (SINGLE OR COMBINATION VACCINE/TOXOID) 2014 [facility] SCREENING TEST OF VISUAL ACUITY, QUANTITATIVE, BILATERAL 2014 [facility] INFLUENZA VIRUS VACCINE, TRIVALENT (IIV3), SPLIT VIRUS, PRESERVATIVE FREE, 0.5 ML DOSAGE, FOR INTRAMUSCULAR USE 2013 [facility] KNEE ORTHOSIS, ELASTIC WITH JOINTS, PREFABRICATED ITEM THAT HAS BEEN TRIMMED, BENT, MOLDED, ASSEMBLED, OR OTHERWISE CUSTOMIZED TO FIT A SPECIFIC PATIENT BY AN INDIVIDUAL WITH EXPERTISE 2013 [facility] BLOOD PRESSURE MEASURED (CKD)(DM) 2013 [facility] BIOPSY OF LIVER, NEEDLE; PERCUTANEOUS 2013 [facility] UNLISTED SPECIAL SERVICE, PROCEDURE OR REPORT 2013 [facility] TELE ASSESS & MGT SRV PROV QUAL NONPHYS HLTH CARE PRO TO EST PAT,PARENT,GUARD NOT ORIG REL ASSESS & MGT SRV PROV W/IN PREV 7 DAYS NOR LEAD ASSESS & MGT SRV/PX W/IN NXT 24 HR/SOON APT;5-10 MIN MED DIS 2013 [facility] BLOOD COUNT; COMPLETE (CBC), AUTOMATED (HGB, HCT, RBC, WBC AND PLATELET COUNT) 2013 DoD UNLISTED SPECIAL SERVICE, PROCEDURE OR REPORT 2013 [facility] MYOCARDIAL PERFUS IMG,TOMOGR (SPECT) (INC ATTENUATION MURPHY,QUAL/QUANT WAL MOT,EJECT FRACT,1ST PASS/GATED TECH,ADD QUANT,WHEN PERF);MULT STUD,AT REST &/ STRES (EXER/PHARM) &/ REDISTRIB &/ REST REINJCT 2013 [facility] ELECTROCARDIOGRAM, ROUTINE ECG WITH AT LEAST 12 LEADS; WITH INTERPRETATION AND REPORT 2013 [facility] IMMUNIZATION ADMINISTRATION (INCLUDES PERCUTANEOUS, INTRADERMAL, SUBCUTANEOUS, OR INTRAMUSCULAR INJECTIONS); 1 VACCINE (SINGLE OR COMBINATION VACCINE/TOXOID) 2013 [facility] CARDIOVASCULAR STRESS TEST USING MAXIMAL OR SUBMAXIMAL TREADMILL OR BICYCLE EXERCISE,CONTINUOUS ELECTROCARDIOGRAPHIC MONITORING,AND/OR PHARMACOLOGICAL STRESS;W SUPERVISION,INTERPRETA TION AND REPORT 2013 [facility] ECHOCARDIOGRAPHY,TRANS THORACIC,REAL-TIME W IMAGE DOCUMENTATION (2D),INCLUDES M-MODE RECORDING,WHEN PERFORMED,COMPLETE,WIT H SPECTRAL DOPPLER ECHOCARDIOGRAPHY,AND W COLOR FLOW DOPPLER ECHOCARDIOGRAPHY 2013 [facility] ELECTROCARDIOGRAM, ROUTINE ECG WITH AT LEAST 12 LEADS; WITH INTERPRETATION AND REPORT 2013 [facility] ELECTROCARDIOGRAM, ROUTINE ECG WITH AT LEAST 12 LEADS; WITH INTERPRETATION AND REPORT 2012 [facility] TELE ASSESS & MGT SRV PROV QUAL NONPHYS HLTH CARE PRO TO EST PAT,PARENT,GUARD NOT ORIG REL ASSESS & MGT SRV PROV W/IN PREV 7 DAYS NOR LEAD ASSESS & MGT SRV/PX W/IN NXT 24 HR/SOON APT;5-10 MIN MED DIS 2012 [facility] OPHTHALMIC ULTRASOUND, ECHOGRAPHY, DIAGNOSTIC; CORNEAL PACHYMETRY, UNILATERAL OR BILATERAL (DETERMINATION OF CORNEAL THICKNESS) 2012 [facility] IMMUNIZATION ADMINISTRATION (INCLUDES PERCUTANEOUS, INTRADERMAL, SUBCUTANEOUS, OR INTRAMUSCULAR INJECTIONS); 1 VACCINE (SINGLE OR COMBINATION VACCINE/TOXOID) 2012 [facility] PHYSICAL THERAPY RE-EVALUATION 2012 [facility] THERAPEUTIC PROCEDURE, 1 OR MORE AREAS, EACH 15 MINUTES; THERAPEUTIC EXERCISES TO DEVELOP STRENGTH AND ENDURANCE, RANGE OF MOTION AND FLEXIBILITY 2012 DoD THERAPEUTIC PROCEDURE, 1 OR MORE AREAS, EACH 15 MINUTES; THERAPEUTIC EXERCISES TO DEVELOP STRENGTH AND ENDURANCE, RANGE OF MOTION AND FLEXIBILITY 2012 DoD THERAPEUTIC PROCEDURE, 1 OR MORE AREAS, EACH 15 MINUTES; THERAPEUTIC EXERCISES TO DEVELOP STRENGTH AND ENDURANCE, RANGE OF MOTION AND FLEXIBILITY 2012 [facility] THERAPEUTIC PROCEDURE(S), GROUP (2 OR MORE INDIVIDUALS) 2012 DoD THERAPEUTIC PROCEDURE, 1 OR MORE AREAS, EACH 15 MINUTES; THERAPEUTIC EXERCISES TO DEVELOP STRENGTH AND ENDURANCE, RANGE OF MOTION AND FLEXIBILITY 2012 DoD THERAPEUTIC PROCEDURE, 1 OR MORE AREAS, EACH 15 MINUTES; THERAPEUTIC EXERCISES TO DEVELOP STRENGTH AND ENDURANCE, RANGE OF MOTION AND FLEXIBILITY 2012 DoD TELE ASSESS & MGT SRV PROV QUAL NONPHYS HLTH CARE PRO TO EST PAT,PARENT,GUARD NOT ORIG REL ASSESS & MGT SRV PROV W/IN PREV 7 DAYS NOR LEAD ASSESS & MGT SRV/PX W/IN NXT 24 HR/SOON APT;5-10 MIN MED DIS 2012 DoD TELE ASSESS & MGT SRV PROV QUAL NONPHYS HLTH CARE PRO TO EST PAT,PARENT,GUARD NOT ORIG REL ASSESS & MGT SRV PROV W/IN PREV 7 DAYS NOR LEAD ASSESS & MGT SRV/PX W/IN NXT 24 HR/SOON APT;5-10 MIN MED DIS 2012 DoD DETERMINATION OF VENOUS PRESSURE 2012 [facility] THERAPEUTIC, PROPHYLACTIC, OR DIAGNOSTIC INJECTION (SPECIFY SUBSTANCE OR DRUG); SUBCUTANEOUS OR INTRAMUSCULAR 2012 [facility] OPHTHALMIC ULTRASOUND, ECHOGRAPHY, DIAGNOSTIC; CORNEAL PACHYMETRY, UNILATERAL OR BILATERAL (DETERMINATION OF CORNEAL THICKNESS) 2012 [facility] UNLISTED SPECIAL SERVICE, PROCEDURE OR REPORT 2012 [facility] ELECTROCARDIOGRAM, ROUTINE ECG WITH AT LEAST 12 LEADS; INTERPRETATION AND REPORT ONLY 2012 DoD OPHTHALMIC ULTRASOUND, ECHOGRAPHY, DIAGNOSTIC; CORNEAL PACHYMETRY, UNILATERAL OR BILATERAL (DETERMINATION OF CORNEAL THICKNESS) 2012 [facility] ARTHROCENTESIS, ASPIRATION AND/OR INJECTION, MAJOR JOINT OR BURSA (EG, SHOULDER, HIP, KNEE, SUBACROMIAL BURSA); WITHOUT ULTRASOUND GUIDANCE 2012 [facility] ARTHROCENTESIS, ASPIRATION AND/OR INJECTION, MAJOR JOINT OR BURSA (EG, SHOULDER, HIP, KNEE, SUBACROMIAL BURSA); WITHOUT ULTRASOUND GUIDANCE 2012 [facility] ARTHROCENTESIS, ASPIRATION AND/OR INJECTION, MAJOR JOINT OR BURSA (EG, SHOULDER, HIP, KNEE, SUBACROMIAL BURSA); WITHOUT ULTRASOUND GUIDANCE 2012 DoD POSTOPERATIVE FOLLOW-UP VISIT, NORMALLY INCLUDED IN THE SURGICAL PACKAGE, INDICATE THAT EVALUATION & MANAGEMENT SERVICE WAS PERFORMED DURING A POSTOPERATIVE PERIOD REASON RELATED ORIGINAL PROCEDURE 2012 DoD POSTOPERATIVE FOLLOW-UP VISIT, NORMALLY INCLUDED IN THE SURGICAL PACKAGE, INDICATE THAT EVALUATION & MANAGEMENT SERVICE WAS PERFORMED DURING A POSTOPERATIVE PERIOD REASON RELATED ORIGINAL PROCEDURE 2011 [facility] LASER IN SITU KERATOMILEUSIS (LASIK) 2011 [facility] DETERMINATION OF REFRACTIVE STATE 2011 [facility] OPHTHALMIC ULTRASOUND, ECHOGRAPHY, DIAGNOSTIC; CORNEAL PACHYMETRY, UNILATERAL OR BILATERAL (DETERMINATION OF CORNEAL THICKNESS) 2011 [facility] IMMUNIZATION ADMINISTRATION BY INTRANASAL OR ORAL ROUTE; 1 VACCINE (SINGLE OR COMBINATION VACCINE/TOXOID) 2011 [facility] SCREENING TEST OF VISUAL ACUITY, QUANTITATIVE, BILATERAL 2011 [facility] PRESCRIPTION OF OPTICAL AND PHYSICAL CHARACTERISTICS OF AND FITTING OF CONTACT LENS, WITH MEDICAL SUPERVISION OF ADAPTATION; CORNEAL LENS, BOTH EYES, EXCEPT FOR APHAKIA 2011 [facility] DETERMINATION OF REFRACTIVE STATE 2011 [facility] Electrocardiogram Electrocardiogram 39255 07/05 ARTHUR FRAZIER Threshold Audiogram (Pure Tone) Threshold Audiogram (Pure Tone) [id number] 2018 ARTHUR FRAZIER Screening Test Of Visual Acuity, Quantitative, Bilateral Screening Test Of Visual Acuity, Quantitative, Bilateral 36173 2018 ARTHUR FRAZIER Preventive Medicine Administration Of Health Risk Questionnaire Patient-Focused Preventive Medicine Administration Of Health Risk Questionnaire Patient-Focused [id number] 2018 GUNNAR FISHER Screening Test Of Visual Acuity, Quantitative, Bilateral Screening Test Of Visual Acuity, Quantitative, Bilateral 12255 2018 GUNNAR FISHER Threshold Audiogram (Pure Tone) Automated Threshold Audiogram (Pure Tone) Automated 0208T 2017 MATT ARMSTRONG Ear mold/insert, not disposable, any type 2017 MATT ARMSTRONG Patient education, not otherwise cla ified, non-physician provider, group, per se ion 2017 MTAT ARMSTRONG [facility] Influenza Split Virus Vaccine IM Preserv Free 0.5mL Dosage Quadrivalent Influenza Split Virus Vaccine IM Preserv Free 0.5mL Dosage Quadrivalent 30997 2017 THOMPSON FAJARDO Influenza, Inj., quad., preservative free (Alfuria); Series #: 1; .5 mL; IM; Left Arm; Mfg: Seqirus; Lot: [id number]. [facility] Immunization Administration By Injection, One Vaccine Immunization Administration By Injection, One Vaccine 63617 2017 THOMPSON FAJARDO Physical Medicine - Group Physical Therapy Se ion Physical Medicine - Group Physical Therapy Session 19317 2017 ANNABELLE SEGURA [facility] Physical Therapy: ___ Se ion Segments, 15 Minutes Each Physical Therapy: ___ Session Segments, 15 Minutes Each [id number] 2017 ANNABELLE SEGURA 1:1 supervision for skilled hands on [facility] Physical Medicine - Group Physical Therapy Se ion Physical Medicine - Group Physical Therapy Session 41015 2017 MYRIAM LING [facility] Physical Therapy: ___ Se ion Segments, 15 Minutes Each Physical Therapy: ___ Session Segments, 15 Minutes Each 38662 2017 MYRIAM LING x30 minutes to improve strength and endurance [facility] Physical Therapy: ___ Se ion Segments, 15 Minutes Each Physical Therapy: ___ Session Segments, 15 Minutes Each 70728 2017 NASRIN HUSTON 1:1 skilled intervention for posture and joint alignment corrections [facility] Physical Medicine - Group Physical Therapy Se ion Physical Medicine - Group Physical Therapy Session 64275 2017 NASRIN HUSTON x5' [facility] Physical Therapy: ___ Se ion Segments, 15 Minutes Each Physical Therapy: ___ Session Segments, 15 Minutes Each 47692 2017 NASRIN HUSTON 1:1 skilled intervention for posture and joint alignment corrections [facility] Physical Therapy: ___ Se ion Segments, 15 Minutes Each Physical Therapy: ___ Session Segments, 15 Minutes Each 44889 2017 THERESA CRESPO Physical Therapy Service Re-Evaluation Physical Therapy Service Re-Evaluation 84017 2017 THERESA CRESPO [facility] Physical Therapy: ___ Se ion Segments, 15 Minutes Each Physical Therapy: ___ Session Segments, 15 Minutes Each [id number] 2017 RODERICK WEBB 1:1 for supervision wt skillled therapy and cueing for knee strengthening and stability [facility] Physical Therapy: ___ Se ion Segments, 15 Minutes Each Physical Therapy: ___ Session Segments, 15 Minutes Each 40015 2017 RODERICK WEBB 1:1 for supervision with skilled therapy and cueing for knee strengthening and stability [facility] Physical Medicine - Group Physical Therapy Se ion Physical Medicine - Group Physical Therapy Session 61119 2017 RODERICK WEBB [facility] Physical Therapy: ___ Se ion Segments, 15 Minutes Each Physical Therapy: ___ Session Segments, 15 Minutes Each [id number] 2017 RODERICK WEBB 1:1 for sueprvision with skilled therapy and cueing for knee strengthening and stability [facility] Physical Therapy: ___ Se ion Segments, 15 Minutes Each Physical Therapy: ___ Session Segments, 15 Minutes Each 01101 2017 GEETA ACOSTA supervised ther ex L knee x36 mins [facility] Physical Therapy: ___ Se ion Segments, 15 Minutes Each Physical Therapy: ___ Session Segments, 15 Minutes Each 78956 2017 MYRIAM LING x20 minutes to improve strength and endurance [facility] Physical Medicine - Group Physical Therapy Se ion Physical Medicine - Group Physical Therapy Session 12783 2017 MYRIAM LING [facility] Physical Medicine - Group Physical Therapy [facility] Physical Medicine - Group Physical Therapy Session 70186 2017 YURIY CHENG [facility] Physical Therapy: ___ Se ion Segments, 15 Minutes Each Physical Therapy: ___ Session Segments, 15 Minutes Each 51676 2017 YURIY CHENG 1:1 supervision with skilled intervention provided through cuing for increased LE strengthening and motion [facility] Mobilization Soft Ti ue Mobilization Soft Tissue 30332 2017 THERESA CRESPO [facility] Physical Therapy: ___ Se ion Segments, 15 Minutes Each Physical Therapy: ___ Session Segments, 15 Minutes Each 09717 2017 THERESA CRESPO Physical Therapy Service Re-Evaluation Physical Therapy Service Re-Evaluation 19487 2017 THERESA CRESPO [facility] Physical Medicine - Group Physical Therapy [facility] Physical Medicine - Group Physical Therapy Session 29849 2017 MINOR BUTLER 15 minutes of group exercise [facility] Physical Therapy: ___ Se ion Segments, 15 Minutes Each Physical Therapy: ___ Session Segments, 15 Minutes Each 12227 2017 MINOR BUTLER 20 minutes of 1:1 supervision for stretching and strengthening exercises [facility] Physical Medicine - Group Physical Therapy ion Physical Medicine - Group Physical Therapy Session 57227 2017 MINOR BUTLER 10 minutes of group exercise [facility] Physical Therapy: ___ Se ion Segments, 15 Minutes Each Physical Therapy: ___ Session Segments, 15 Minutes Each 36097 2017 MINOR BUTLER 30 minutes of 1:1 supervision for stretching and strengthening exercises [facility] Physical Therapy: ___ Se ion Segments, 15 Minutes Each Physical Therapy: ___ Session Segments, 15 Minutes Each 99148 2017 THERESA CRESPO Physical Therapy Service Evaluation Moderate Complexity Physical Therapy Service Evaluation Moderate Complexity 35880 2017 THERESA CRESPO Crutches, underarm, wood, adjustable or fixed, pair, with pads, tips and handgrips 2017 POLINA FLORES Phys Therapy Education Self Care Training - Per 15 Minutes Phys Therapy Education Self Care Training - Per 15 Minutes 57858 2017 POLINA FLORES Physical Therapy Gait Training Physical Therapy Gait Training 04507 2017 POLINA FLORES ment & Intervention Blood Pre ure Measured Assessment & Intervention Blood Pressure Measured 2014 ROYER CHAMBERLAIN Vaccines Viral Measles, Mumps and Rubella, Live Vaccines Viral Measles, Mumps and Rubella, Live 11805 2014 EMMETT FOX MMR; Series #: 1; .5 mL; SC; Left Arm; Mfg: Trapster; Lot: [id number]; VIS given (Alvarez: 06/16/11). [facility] Immunization Administration By Injection, One Vaccine Immunization Administration By Injection, One Vaccine 22702 2014 EMMETT FOX Screening Test Of Visual Acuity, Quantitative, Bilateral Screening Test Of Visual Acuity, Quantitative, Bilateral 94857 2014 ROYER CHAMBERLAIN ment & Intervention Blood Pre ure Measured Assessment & Intervention Blood Pressure Measured 2014 ROYER CHAMBERLAIN Influenza Split Virus Vaccine 0.5mL Dosage Intramuscular Preservative Free 2013 ANDRES CHAVIS Immunization Administration By Injection, One Vaccine Immunization Administration By Injection, One Vaccine 99235 2013 ANDRES CHAVIS Physical Therapy Education Orthotics Training 2013 JIA COLLAZO Knee orthosis, elastic with joints, prefabricated item that has been trimmed, bent, molded, a embled, or otherwise customized to fit a specific patient by an individual with expertise 2013 BROMELL, JIA K DoD A e ment & Intervention Blood Pre ure Measured Assessment & Intervention Blood Pressure Measured 2000F 2013 ROYER CHAMBERLAIN [facility] Non-Physician Phone Call To Patient/Provider Brief (5-10min) Non-Physician Phone Call To Patient/Provider Brief (5-10min) 68748 2013 TERESA GONZALEZ PT called back and scheduled liver bx on August 04 at 0700. Pre-op instructions reviewed over the phone. Pt verbalizes understanding. Reminded pt to hold aspirin for 7 days prior to appointment time. Emailed written instructions to pt. [facility] Parenteral Fluids IV Infusion Parenteral Fluids IV Infusion 74097 2013 ABENA MCCORD Please give Ceftriaxone 1gm via IV infusion in normal saline. Thank you. [employer] Med Svc Qual Nonphys Healthcare Prof Up To 7 Days Estab Patient Internet Med Svc Qual Nonphys Healthcare Prof Up To 7 Days Estab Patient 23513 2013 SHEELA REAL [facility] Electrocardiogram Electrocardiogram 84101 03/24 IHSAN SERNA [facility] Physician Supervised Injection Subcutaneous Physician Supervised Injection Subcutaneous 42737 2013 ROBBY PORTILLO [facility] Pneumococcal Polysaccharide Vaccine (Age 2Y+) Pneumococcal Polysaccharide Vaccine (Age 2Y+) 70310 2013 ROBBY PORTILLO Pneumococcal; Series #: 1; .5 mL; IM; Right Arm; Mfg: Trapster; Lot: [id number]; VIS given (Alvarez: 12/01/2008). [employer] Immunization Administration By Injection, One Vaccine Immunization Administration By Injection, One Vaccine 95024 2013 ROBBY PORTILLO [facility] Cardiac Stre Test With Physician Supervision, Interpretation, And Report Cardiac Stress Test With Physician Supervision, Interpretation, And Report 83750 2013 DANITA STRANGE [facility] Echo Congenital Cardiac Defects Transthoracic W/ M-Mode, Spectral, & Color Flow Echo Congenital Cardiac Defects Transthoracic W/ M-Mode, Spectral, & Color Flow 75729 2013 SARAH VILA [facility] Electrocardiogram Electrocardiogram 81020 03/04 IHSAN SERNA Non-Physician Phone Call To Patient/Provider Brief (5-10min) Non-Physician Phone Call To Patient/Provider Brief (5-10min) 20821 2012 SHEELA REAL [facility] Corneal Pachymetry Corneal Pachymetry 76887 2012 YURIY PIKE [facility] Computerized Corneal Topography Computerized Corneal Topography 98775 2012 YURIY PIKE Determination Of Refractive State Determination Of Refractive State 31652 2012 YURIY PIKE Ophthalmological Prior Patient Start Intermediate Level Care Ophthalmological Prior Patient Start Intermediate Level Care 27617 2012 YURIY PIKE Immunization Administration By Injection, One Vaccine Immunization Administration By Injection, One Vaccine 67900 2012 KAMINI COLBERT [facility] Influenza Virus Vaccine Live Attenuated Intranasal Quadrivalent Influenza Virus Vaccine Live Attenuated Intranasal Quadrivalent 01318 2012 KAMINI COLBERT [facility] Physical Therapy Service Re-Evaluation Physical Therapy Service Re-Evaluation 03111 2012 JOSE FISH [facility] Physical Therapy: ___ Se ion Segments, 15 Minutes Each Physical Therapy: ___ Session Segments, 15 Minutes Each 38403 2012 FRIDA SQUIRES [facility] Physical Therapy: ___ Se ion Segments, 15 Minutes Each Physical Therapy: ___ Session Segments, 15 Minutes Each 40025 2012 STEVEN RENAE 25 min [facility] Physical Therapy: ___ Se ion Segments, 15 Minutes Each Physical Therapy: ___ Session Segments, 15 Minutes Each 21587 2012 STEVEN RENAE 20 min [facility] Physical Medicine - Group Physical Therapy Se ion Physical Medicine - Group Physical Therapy Session 90632 2012 ELIJAH PIEDRA x2 patients in clinic [facility] Physical Therapy: ___ Se ion Segments, 15 Minutes Each Physical Therapy: ___ Session Segments, 15 Minutes Each 08264 2012 ELIJAH PIEDRA x45 min [facility] Physical Therapy: ___ Se ion Segments, 15 Minutes Each Physical Therapy: ___ Session Segments, 15 Minutes Each 91751 2012 SILAS ELAINE X 45 min [facility] Physical Therapy Service Evaluation Physical Therapy Service Evaluation 14919 2012 JOSE FISH [facility] Physical Therapy: ___ Se ion Segments, 15 Minutes Each Physical Therapy: ___ Session Segments, 15 Minutes Each 17138 2012 JOSE FISH [facility] Non-Physician Phone Call To Patient/Provider Brief (5-10min) Non-Physician Phone Call To Patient/Provider Brief (5-10min) 96414 2012 ADDIE SHEELAMENG PEREZ [facility] Venous Pre ure Venous Pressure 03101 2012 ANTOLIN VILLANUEVA Monica Non-Physician Phone Call To Patient/Provider Brief (5-10min) Non-Physician Phone Call To Patient/Provider Brief (5-10min) 59362 2012 HOLLAND MAZA Corneal Pachymetry Corneal Pachymetry 69619 2012 YURIY PIKE Determination Of Refractive State Determination Of Refractive State [id number] YURIY PIKE Computerized Corneal Topography Computerized Corneal Topography [id number] YURIY PIKE Ophthalmological Prior Patient Start Comprehensive Care Ophthalmological Prior Patient Start Comprehensive Care 97834 2012 YURIY PIKE ECG Interpretation And Report Only ECG Interpretation And Report Only 07387 2012 LEIDY MESA JR Ophthalmological Prior Patient Start Intermediate Level Care Ophthalmological Prior Patient Start Intermediate Level Care 23334 2012 LEONEL GRESHAM Determination Of Refractive State Determination Of Refractive State 10864 2012 LEONEL GRESHAM Computerized Corneal Topography Computerized Corneal Topography 40944 2012 LEONEL GRESHAM Corneal Pachymetry, Bilateral With Interpret And Report Corneal Pachymetry, Bilateral With Interpret And Report 97823 2012 LEONEL GRESHAM Arthrocentesis Injection Of Knee Joint Arthrocentesis Injection Of Knee Joint 2012 MITALI ONEILL Discussed Hyalgan injection series with the patient. Risks/benefits /potential complications reviewed. After receiving verbal consent and identifying the leftt knee as the correct knee to be injected, the left knee was prepared using sterile technique. The left knee was then injected using [id number] mg. Bandaid was applied. The injection was well tolerated by the patient. Monica Arthrocentesis Injection Of Knee Joint Arthrocentesis Injection Of Knee Joint 2012 MITALI ONEILL After receiving verbal consent and identifying the LEFT knee as the correct knee to be injected, the left knee was prepared using sterile technique. The left knee was then injected using [id number] mg. Bandaid was applied. The injection was well tolerated by the patient. Monica Arthrocentesis Injection Of Knee Joint Arthrocentesis Injection Of Knee Joint 61473 2012 MITALI ONEILL Postoperative Visit, Without Charge Postoperative Visit, Without Charge 61596 2012 LEONEL GRESHAM Postoperative Visit, Without Charge Postoperative Visit, Without Charge 21786 2011 YURIY PIKE Laser in situ keratomileusis (LASIK) 2011 YURIY PIKE Postoperative Visit, Without Charge Postoperative Visit, Without Charge 02816 2011 YURIY PIKE Laser in situ keratomileusis (LASIK) 2011 JACKIE HESS Determination Of Refractive State Determination Of Refractive State 76857 2011 YURIY PIKE Screening Test Of Visual Acuity, Quantitative, Bilateral Screening Test Of Visual Acuity, Quantitative, Bilateral 14233 ARTHUR FRAZIER Threshold Audiogram (Pure Tone) Threshold Audiogram (Pure Tone) 82668 ARTHUR FRAZIER Electrocardiogram Electrocardiogram 80699 ARTHUR FRAZIER Ophthalmological Prior Patient Start Comprehensive Care Ophthalmological Prior Patient Start Comprehensive Care 34639 2011 YURIY PIKE Corneal Pachymetry Corneal Pachymetry 09629 2011 YURIY PIKE Computerized Corneal Topography Computerized Corneal Topography 79355 2011 YURIY PIKE Ophthalmological New Patient Start Comprehensive Care Ophthalmological New Patient Start Comprehensive Care 87527 2011 YURIY PIKE Influenza Virus Vaccine Intranasal Live Attenuated 2011 HERMINIO BERNARDO Immunization Admin By Intranasal / Oral Route One Vaccine Immunization Admin By Intranasal / Oral Route One Vaccine 68391 2011 HERMINIO BERNARDO Screening Test Of Visual Acuity, Quantitative, Bilateral Screening Test Of Visual Acuity, Quantitative, Bilateral 37659 2011 LULA MITCHELL Prescription And Fitting Bilateral Corneal Lenses (Not For Aphakia) Prescription And Fitting Bilateral Corneal Lenses (Not For Aphakia) 09379 2011 ANTONIETTA GAMING [facility] Ophthalmological New Patient Start Comprehensive Care Ophthalmological New Patient Start Comprehensive Care 76385 2011 ANTONIETTA GAMING Spectacles Services Fitting Bifocal Except For Aphakia Spectacles Services Fitting Bifocal Except For Aphakia 46554 2011 ANTONIETTA GAMING Determination Of Refractive State Determination Of Refractive State 27310 2011 ANTONIETTA GAMING [facility] ECG 12-Lead With Interpretation And Report ECG 12-Lead With Interpretation And Report 73338 2010 ELIJAH MANRIQUEZ [facility] Ironer Or Presser Ed Community Reintegration Training - Per 15 Min Ironer Or Presser Ed Community Reintegration Training - Per 15 Min 98668 2010 JOHNATHAN VEGA Patient Was Educated Regarding Duty Restrictions And Capabilities To Facilitate Healing In His Work Environment. These Instructions Were Annotated On An E-Profile ([id number]) Located In [facility] [employer] Read[employer] In The Patient's Health History . under my last entry for his latest Temp. [facility] Physical Therapy Service Re-Evaluation Physical Therapy Service Re-Evaluation 91803 2010 JOHNATHAN VEGA DoD A isted Exercises For ROM Assisted Exercises For ROM 60808 2010 JOHNATHAN VGEA 10 Minute Review Of Flow Sheet And HEP For Continued Progression With Demonstration And Progression Of Therex. DoD PT A e ment Kinetic Training PT Assessment Kinetic Training 50570 2010 JOHNATHAN VEGA 13 Minutes For: Patient Was Also Instructed And Demonstrated Back Education Regarding Activity Modification And Addressiong Fucntional Activitiesd To Better Accomodate His Limitaitons And Progeress To Normal Gait, Transfers, And Bedmobility. [facility] Physical Therapy Service Re-Evaluation Physical Therapy Service Re-Evaluation 12066 2010 JOHNATHAN VEGA DoD PT A e ment Kinetic Training PT Assessment Kinetic Training 61110 2010 MICAELA RAM 15 min DoD Physical Therapy: ___ Se ion Segments, 15 Minutes Each Physical Therapy: ___ Session Segments, 15 Minutes Each 11363 2010 MICAELA RAM 60 min DoD PT A e ment Kinetic Training PT Assessment Kinetic Training 96927 2010 MICAELA RAM 15 min DoD Physical Therapy: ___ Se ion Segments, 15 Minutes Each Physical Therapy: ___ Session Segments, 15 Minutes Each 80022 2010 MICAELA RAM 45 min DoD Physical Therapy Neuromuscular Re-education Physical Therapy Neuromuscular Re-education 92590 2010 SHWETA MORRISON 10 min DoD PT A e ment Kinetic Training PT Assessment Kinetic Training 43714 2010 SHWETA MORRISON DoD Physical Therapy: ___ Se ion Segments, 15 Minutes Each Physical Therapy: ___ Session Segments, 15 Minutes Each 07550 2010 SHWETA MORRISON 45 min DoD PT A e ment Kinetic Training PT Assessment Kinetic Training 59937 2010 MICAELA RAM 15 min DoD Physical Therapy: ___ Se ion Segments, 15 Minutes Each Physical Therapy: ___ Session Segments, 15 Minutes Each 01742 2010 MICAELA RAM 30 min DoD PT A e ment Kinetic Training PT Assessment Kinetic Training 86746 2010 MICAELA RAM 15 min DoD Physical Therapy: ___ Se ion Segments, 15 Minutes Each Physical Therapy: ___ Session Segments, 15 Minutes Each 16497 2010 MICAELA RAM 45 min DoD PT A e ment Kinetic Training PT Assessment Kinetic Training 23193 2010 JOHNATHAN VEGA 10 Minute Review Of Flow Sheet And HEP For Continued Progression With Demonstration And Progression Of Therex. [facility] Physical Therapy Service Re-Evaluation Physical Therapy Service Re-Evaluation 99032 2010 JOHNATHAN VEGA DoD PT A e ment Kinetic Training PT Assessment Kinetic Training 40819 2010 MICAELA RAM 15 min DoD Physical Therapy: ___ Se ion Segments, 15 Minutes Each Physical Therapy: ___ Session Segments, 15 Minutes Each 88026 2010 MICAELA RAM 30 min DoD PT A e ment Kinetic Training PT Assessment Kinetic Training 04108 2010 MICAELA RAM 15 min DoD Physical Therapy: ___ Se ion Segments, 15 Minutes Each Physical Therapy: ___ Session Segments, 15 Minutes Each 60025 2010 MICAELA RAM 30 min DoD PT A e ment Kinetic Training PT Assessment Kinetic Training 34481 2010 MICAELA RAM 15 min [facility] Physical Therapy: ___ Se ion Segments, 15 Minutes Each Physical Therapy: ___ Session Segments, 15 Minutes Each 17376 2010 MICAELA RAM 30 min [facility] PT A e ment Kinetic Training PT Assessment Kinetic Training 88120 2010 MICAELA RAM [facility] Physical Therapy: ___ Se ion Segments, 15 Minutes Each Physical Therapy: ___ Session Segments, 15 Minutes Each 98325 2010 MICAELA RAM Phys Therapy Education Self Care Training - Per 15 Minutes Phys Therapy Education Self Care Training - Per 15 Minutes 47129 2010 MICAELA RAM [facility] Ironer Or Presser Educ Orthotics Training Each Additional 15 Minutes 2010 ARABELLA CORREA Knee orthosis, double upright, thigh and calf, with adjustable flexion and extension joint (unicentric or polycentric), medial-lateral and rotation control, with or without varus/valgus adjustment, prefabricated, includes fitting and adjustment 2010 ARABELLA CORREA Physical Therapy: ___ Se ion Segments, 15 Minutes Each Physical Therapy: ___ Session Segments, 15 Minutes Each 93708 2010 ALMA JANG [facility] Physical Therapy Neuromuscular Re-education Physical Therapy Neuromuscular Re-education 69543 2010 ALMA JANG Physical Therapy: ___ Se ion Segments, 15 Minutes Each Physical Therapy: ___ Session Segments, 15 Minutes Each 45470 2010 ALMA JANG PT A e ment Kinetic Training PT Assessment Kinetic Training 41224 2010 JOHNATHAN VEGA 10 minutes [facility] Physical Therapy Service Re-Evaluation Physical Therapy Service Re-Evaluation 83309 2010 JOHNATHAN VEGA [facility] Postoperative Visit, Without Charge Postoperative Visit, Without Charge 39715 2010 CONTRACTORUMA [facility] Crutches, forearm, includes crutches of various materials, adjustable or fixed, pair, complete with tips and handgrips 2010 ROWDY SOARES Total treatment time was 8 mins. [facility] Patient Training And Self-Care Skills Additional 15 Minutes Patient Training And Self-Care Skills Additional 15 Minutes 55749 2010 ROWDY SOARES Total treatment time was 15 mins. [facility] Phys Therapy Education Self Care Training - Per 15 Minutes Phys Therapy Education Self Care Training - Per 15 Minutes 71169 2010 JOHNATHAN VEGA 13 min [facility] A isted Exercises For ROM Assisted Exercises For ROM 08410 2010 JOHNATHAN VEGA 10 min [facility] Physical Therapy Service Evaluation Physical Therapy Service Evaluation 73628 2010 JOHNATHAN VEGA [facility] Immunization Administration By Injection, One Vaccine Immunization Administration By Injection, One Vaccine 47151 2010 HEATHER DILL Tdap Vaccine Tdap Vaccine 92788 2010 HEATHER DILL Tdap given by [facility] Amie. [facility] Physical Therapy Gait Training Physical Therapy Gait Training 41299 2010 ROWDY SOARES Total treatment time was 15 mins. [facility] Influenza Vaccine Cell Culture Derivative, Preservative And Antibiotic Free, Trivalent, 0.5mL, IM 2009 YURIY SEGURA Fluzone, 0.5ml, Lot # [id number], exp 25 AUG 2010, 2009-12VIS given to pt [facility] Echo Congenital Cardiac Defects Transthoracic W/ M-Mode, Spectral, & Color Flow Echo Congenital Cardiac Defects Transthoracic W/ M-Mode, Spectral, & Color Flow 65658 2009 ARMANDO DOMINGUEZ [facility] Physician Supervised Group Educational Services 2009 WALKER MAHER [facility] Physician Supervised Services Provision Of Special Supplies Physician Supervised Services Provision Of Special Supplies 16001 2009 WALKER MAHER Audiometry Group Testing Audiometry Group Testing 20329 2009 WALKER MAHER [facility] Special Physician Services Analysis Of Computerized Data [facility] Analysis Of Computerized Data [id number] 2009 WALKER MAHER Cardiac Stre Test Interpretation And Report Only Cardiac Stress Test Interpretation And Report Only [id number] 2009 MELLISA DOSHI [facility] ECG 12-Lead With Interpretation And Report ECG 12-Lead With Interpretation And Report [id number] 2009 ELIJAH MANRIQUEZ [facility] Spectacles Services Fitting Monofocal Except For Aphakia Spectacles Services Fitting Monofocal Except For Aphakia 85375 2008 ROSA LEMUS [facility] ECG 12-Lead ECG 12-Lead [id number] 2008 MARLON MAGAÑA [facility] Typhoid Vac Acet-Killed, Dried ([place].S[place] ) For Subcut Typhoid Vac Acet-Killed, Dried ([place] ) For Subcut [id number] 2008 MONALISAJC [facility] Immunization Administration By Injection, Each Additional Vaccine 2008 [facility] Meningococcal Polysaccharide Vaccine Meningococcal Polysaccharide Vaccine 77226 2008 MONALISA, [facility] Immunization Administration By Injection, One Vaccine Immunization Administration By Injection, One Vaccine 90224 2008 INVERNESSJC [facility] Anthrax Vaccine, For Subcutaneous Use 2008 INVERNESS [facility] Immunization Administration By Injection, One Vaccine Immunization Administration By Injection, One Vaccine 88614 2008 DANY HORVATH Skin Test Anergy tuberculin Skin Test Anergy tuberculin 41464 2008 DANY HORVATH ID verified. PPD given by SPC.Venu [facility] Venipuncture Venipuncture 25249 2008 TAMMIE DUTTON HIV DRAWN IN LEFT ANTECUBITAL AREA, NO REDNESS OR SWELLING NOTED AT SITE, DENIES ANY PAIN OR DISCOMFORT AT SITE NO S/SX OF DISTRESS NOTED. [facility] Audiogram (Screening) Audiogram (Screening) 81932 2008 POLINA KU [facility] Influenza Virus Vaccine Intranasal Live Attenuated 2007 BALAJI MONTE [facility] Immunization Admin By Intranasal / Oral Route One Vaccine Immunization Admin By Intranasal / Oral Route One Vaccine 32652 2007 BALAJI MONTE [facility] Screening Test Of Visual Acuity, Quantitative, Bilateral Screening Test Of Visual Acuity, Quantitative, Bilateral 94635 2006 LEIGHANN EDWARD Threshold Audiogram (Pure Tone) Threshold Audiogram (Pure Tone) 87750 2006 LEIGHANN EDWARD Ophthalmological New Patient Start Comprehensive Care Ophthalmological New Patient Start Comprehensive Care [id number] 2006 ZAINA PHAM Determination Of Refractive State Determination Of Refractive State 59154 2006 ZAINA PHAM [facility] Spectacles Services Fitting Monofocal Except For Aphakia Spectacles Services Fitting Monofocal Except For Aphakia 50824 2006 ZAINA PHAM [facility] Ear Protector Attenuation Measurements Ear Protector Attenuation Measurements 59141 2006 POLINA KU Threshold Audiogram (Pure Tone) Threshold Audiogram (Pure Tone) 78177 2006 POLINA KU Visual Function Screening Visual Function Screening 34629 2006 POLINA KU Spectacles Services Fitting Monofocal Except For Aphakia Spectacles Services Fitting Monofocal Except For Aphakia 72575 2005 FLACO YE Visual Mitchell Test Limited Examination Visual Mitchell Test Limited Examination 34369 2005 FLACO YE Determination Of Refractive State Determination Of Refractive State 67908 2005 FLACO YE Ophthalmological Prior Patient Start Comprehensive Care Ophthalmological Prior Patient Start Comprehensive Care 40334 2005 FLACO YE Social History 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 Social History Type Response Date Comment Sourc e This section is an empty social history section. 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
== END 2024-03-18 09:08 | disposition home or self-care (01) ==
PROVIDERS: Emergency Provider Nurse Practitioner Family; PCP Nurse Practitioner Family
DX: J06.9 Acute upper respiratory infection, unspecified (principal); H66.001 Acute suppurative otitis media without spontaneous rupture of ear drum, right ear; J02.9 Acute pharyngitis, unspecified; I25.118 Atherosclerotic heart disease of native coronary artery with other forms of angina pectoris; I25.2 Old myocardial infarction; I10 Essential (primary) hypertension; E78.5 Hyperlipidemia, unspecified; E11.9 Type 2 diabetes mellitus without complications; I48.91 Unspecified atrial fibrillation; M10.9 Gout, unspecified; Z87.891 Personal history of nicotine dependence; Z79.82 Long term (current) use of aspirin; Z79.01 Long term (current) use of anticoagulants
CPT/HCPCS: 99213; G0463

== ENCOUNTER 2024-05-15 08:14 | Outpatient (CLI) | payer OTHER, SELFPAY ==
--- NOTE | ~2024-05-15 | CT_ITS ---
Clinical Indication: Thoracic aortic aneurysm CT Scan of the Chest with Contrast: Technique: Contiguous sections were acquired throughout the chest after intravenous administration of 100 cc of Omnipaque 350. Dose reduction technique was used on this scan by utilizing automated expos ure control and iterative reconstruction technique. The dose-length product (DLP) was 904.34 mGy-cm. Findings: There is no evidence of any significant mediastinal, hilar or axillary lymphadenopathy. There is no f illing defect in the pulmonary arterial tree to suggest pulmonary embolus. Ascending aorta measures 4 .2 cm in diameter. No aneurysm of the descending thoracic aorta. There is no evidence of pleural or pericardial effusion. The lungs are clear. No pulmonary nodules or infiltrates are noted. Images through the upper abdomen reveal diffuse fatty infiltration of liver. Impression: Ascending aortic aneurysm measures 4.2 cm in diameter. No other significant findings. Reviewed, dictated and finalized at [facility]. Impression: Ascending aortic aneurysm measures 4.2 cm in diameter. No other significant findings.
--- OUTSIDE RECORDS SUMMARY | 2024-05-15 08:20 | XMS_ITS | Referral Summary ---
Author Organization [facility] [address] [place] [address] [address] [place] [address] Care Team Providers Care Cotton Picker Name Role Phone Val Menendez PUTTY AND PATCH WORKER Primary Care Provider + Lisa Carty PUTTY AND PATCH WORKER Unavailable [phone] Encounters Date Type Department Care Team Description 05/07/2024 10:15 AM CDT Office Visit [facility] Cardiology [address] [facility] [address] [place] [address] Reilly Rae MD Coronary artery disease of [place] artery of [place] heart with stable angina pectoris (Primary Dx); Hypertension associated with diabetes (HCC); Mixed diabetic hyperlipidemia associated with type 2 diabetes mellitus (CMS/HCC) (HCC); Paroxysmal atrial fibrillation (HCC); Chronic anticoagulation; [place] on CPAP; Chest pain, unspecified type; Thoracic aortic aneurysm without rupture, unspecified part; Status post ablation of atrial fibrillation from Last 3 Months Allergies No known active allergies Medications aspirin (Adult Low Dose Aspirin) 81 mg enteric coated tablet Take 1 tablet (81 mg total) by mouth daily 0 Active allopurinoL (ZYLOPRIM) 100 mg tablet Take 1 tablet (100 mg total) by mouth daily Active Jardiance 10 mg tablet Take 1 tablet (10 mg total) by mouth daily 4 Active amLODIPine-holly zepriL (LOTREL) 10-20 mg per capsule Take 1 capsule by mouth daily 90 capsule 3 5 Active rosuvastatin (CRESTOR) 40 mg tablet Take 1 tablet (40 mg total) by mouth daily 90 tablet 3 5 Active Xarelto 20 mg tablet Take 1 tablet (20 mg total) by mouth daily 90 tablet 3 5 Active amLODIPine-holly zepriL (LOTREL) 10-20 mg per capsule Take 1 capsule by mouth daily 0 05/08/19 Discontinu ed(Reorder ) rosuvastatin (CRESTOR) 40 mg tablet Take 1 tablet (40 mg total) by mouth daily 0 05/08/19 Discontinu ed(Reorder ) celecoxib (CeleBREX) 200 mg capsule 2 05/08/19 Discontinu ed(Therapy completed) Xarelto 20 mg tablet TAKE 1 TABLET DAILY 90 tablet 3 4 05/08/19 Discontinu ed(Reorder ) Active Problems Problem Noted Date Diagnosed Date Thoracic aortic aneurysm without rupture 025 Chest pain 05/07/2024 Morbid (severe) obesity due to excess calories 0 05/03/2023 Other thrombophilia 05/03/2023 Chronic anticoagulation 08/17/2020 [place] on CPAP 08/17/2020 Medication side effects 04/12/2020 Status post ablation of atrial fibrillation 03/29 Atrial fibrillation 02/13/2020 Coronary artery disease 02/13/2020 Hypertension associated with diabetes 02/13/2020 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 2 diabetes mellitus ([facility]) 02/13/2020 Resolved Problems Problem Noted Date Diagnosed Date Resolved Date Mixed hyperlipidemia 02/23/2021 023 Dyslipidemia 08/17/2020 02/23/2021 Social History Tobacco Use Types Packs/Day Years Used Date Smoking Tobacco: Former Smokeless Tobacco: Never Alcohol Use Standard Drinks/Week Comments Yes 0 (1 standard drink = 0.6 oz pur e alcohol) Sex and Gender Information Value Date Recorded Sex Assigned at Not on file Legal Sex Male 10:40 AM READING INTERVENTIONIST Gender Identity Not on file Sexual Orientation Not on file Last Filed Vital Signs Vital Sign Reading Time Taken Comments Blood Pressure 138/80 05/07/2024 12:27 PM CDT Pulse 59 05/07/2024 10:38 AM CDT Temperature 36.8 C (98.3 F) 04/23/2020 8:40 AM READING INTERVENTIONIST Respiratory Rate 16 03/02/2021 3:36 PM READING INTERVENTIONIST Oxygen Saturation 97% 05/07/2024 10:38 AM CDT Inhaled Oxygen Concentration - - Weight 114.8 kg (253 lb) 05/07/2024 10:38 AM CDT Height 185.4 cm (6' 1 ) 05/07/2024 10:38 AM CDT Body Mass Index 33.38 05/07/2024 10:38 AM CDT Plan of Treatment Not on file Medical Devices Implanted Type Area Supervisor Functional Testing Device Identifier Shelf Expiration Date Model / Serial / Lot [employer] [id number] System 6-12fr Mvp Venous Closure Vascade - [id number] - [id number] Implanted:Qty : 1 on 04/22/2020 by Hayder Feldman MD at [facility] Coll[facility] Left: Femoral [employer] 03/03/2022 800-612C- 10U / [id number] / [id number] [employer] [id number] System 6-12fr Mvp Venous Closure Vascade - [id number] - [id number] Implanted:Qty : 1 on 04/22/2020 by Hayder Feldman MD at [facility] Collagen Left: Femoral [employer] 03/03/2022 800-612C- 10U / [id number] / [id number] [employer] [id number] System 6-12fr Mvp Venous Closure Vascade - [id number] - [id number] Implanted:Qty : 1 on 04/22/2020 by Hayder Feldman MD at [facility] Collagen Right: Femoral [employer] 03/03/2022 800-612C- 10U / [id number] / [id number] [employer] [id number] Device Closure Vascade Od5 Fr Femoral Artery - [id number] - [id number] Implanted:Qty : 1 on 04/22/2020 by Hayder Feldman MD at [facility] Collagen Right: Femoral [employer] 11/10/2021 700-500DX -05U / [id number] / [id number] Procedures Procedure Name Priority Date/Time Associated Diagnosis Comments POCT LIPID PANEL Routine 05/07/2024 9:40 AM CDT Coronary artery disease of [place] artery of [place] heart with stable angina pectoris Mixed diabetic hyperlipidemia associated with type 2 diabetes mellitus (CMS/HCC) (HCC) EGFR STAT 04/22/2020 7:23 AM READING INTERVENTIONIST from Last 3 Months or Most Recently Relevant to Health Maintenance Results * POCT lipid panel (05/07/2024 9:40 AM CDT) Cholesterol, POC 113 mg/dL HDL, POC 53 mg/dL Triglycerides, POC 73 mg/dL LDL Cholesterol POC 45 mg/dL Chol/HDL Ratio, POC 0.9 Non-HDL Cholesterol, POC 60 mg/dL Cholesterol Total, POC 113 mg/dL Capillary blood 05/07/2024 9 :40 AM CDT Reilly Rae MD POINT OF CARE TEST ORDERA BLES Final Result * eGFR (04/22/2020 7:23 AM READING INTERVENTIONIST) eGFR 104 mL/min/1.7 3 m2 [facility] Comment: Interpretive Data Reference Interval Normal >/= 90 mL/min/1.73m2 Mildly decreased* 60 - 89 mL/min/1.73m2 Mildly to moderately decreased 45 - 59 mL/min/1.73m2 Moderately to severely decreased 30 - 44 mL/min/1.73m2 Severely decreased 15 - 29 mL/min/1.73m2 Kidney Failure < 15 mL/min/1.73m2 *Relative to young adult level Estimated glomerular [...] 2020 Blood specimen (specimen) 04/22/2020 7:23 AM READING INTERVENTIONIST 04/22/2020 7:23 AM READING INTERVENTIONIST Hayder Feldman MD LAB BLOOD ORDERABLES Final Result [facility] [address] Department [place] [address] from Last 3 Months or Most Recently Relevant to Health Maintenance Insurance [facility] CLAIMS [facility] CLAIMS Care Teams Cotton Picker Relationship Specialty Start Date End Date Val Menendez NP [place] [facility] [place] [address] PCP - General Nurse Practitioner 02/10/20 Lisa Carty NP [address] [facility] [place] [address] Nurse Practitioner Cardiology 04/23/20
--- OUTSIDE RECORDS SUMMARY | 2024-05-15 08:21 | XMS_ITS | Clinical Summary ---
Author Organization [facility] [address] [place] [address] Care Team Providers Care Metal Grinder Name Role Phone Val Menendez DIRECTOR REPORT Primary Care Provider + Lisa Carty DIRECTOR REPORT Unavailable [phone] Allergies No known active allergies Medications aspirin [...] 1 capsule by mouth daily 0 05/08/19 25 Discontinu ed(Reorder ) rosuvastatin (CRESTOR) 40 mg tablet Take 1 tablet (40 mg total) by mouth daily 0 05/08/19 25 Discontinu ed(Reorder ) celecoxib (CeleBREX) 200 mg capsule 2 05/08/19 25 Discontinu ed(Therapy completed) Xarelto 20 mg tablet TAKE 1 TABLET DAILY 90 tablet 3 4 05/08/19 25 Discontinu ed(Reorder ) Active Problems Problem Noted [...] a associated with type 2 diabetes mellitus (CMS/HCC) 02/13/2020 Resolved Problems Problem Noted Date Diagnosed Date Resolved Date Mixed hyperlipidemia 02/23/2021 023 Dyslipidemia 08/17/2020 02/23/2021 Encounters Date Type Department Care Team Description 05/07/2024 10:15 AM CDT Office Visit [facility] Medical Group Cardiology [address] [place] [address] Reilly Rae MD Coronary artery disease of [place] artery of [place] heart with stable angina pectoris (Primary Dx); Hypertension associated with diabetes (HCC); Mixed diabetic hyperlipidemia associated with type 2 diabetes mellitus (CMS/HCC) (HCC); Paroxysmal atrial fibrillation (HCC); Chronic anticoagulation; [place] on CPAP; Chest pain, unspecified type; Thoracic aortic aneurysm without rupture, unspecified part; Status post ablation of atrial fibrillation from Last 3 Months Surgical History Surgery Date Site/Laterality Comments KNEE SURGERY KNEE ARTHROSCOPY W/ LATERAL RELEASE 2014 Medical History Medical History Date Comments Hypertension Heart attack (HCC) Hyperlipidemia DM (diabetes mellitus) (HCC) Sleep apnea GERD (gastroesophageal reflux disease) 1Jan 2002 Family History Medical History Relation Name Comments Heart attack Father Arnaud Cancer Mother Hanh Relation Name Status Comments Father Arnaud (Age 62) Mother Hanh Alive Social History Tobacco Use Types Packs/Day Years Used Date Smoking Tobacco: Former Smokeless Tobacco: Never Alcohol Use Standard Drinks/Week Comments Yes 0 (1 standard drink = 0.6 oz pur e alcohol) Sex and Gender Information Value Date Recorded Sex Assigned at Not on file Legal Sex Male 10:40 AM BIRD TRAPPER Gender Identity Not on file Sexual Orientation Not on file Obstetrics History Last Filed Vital Signs Vital Sign Reading Time Taken Comments Blood Pressure 138/80 05/07/2024 12:27 PM CDT Pulse 59 05/07/2024 10:38 AM CDT Temperature 36.8 C (98.3 F) 04/23/2020 8:40 AM BIRD TRAPPER Respiratory Rate 16 03/02/2021 3:36 PM BIRD TRAPPER Oxygen Saturation 97% 05/07/2024 10:38 AM CDT Inhaled Oxygen Concentration - - Weight 114.8 kg (253 lb) 05/07/2024 10:38 AM CDT Height 185.4 cm (6' 1 ) 05/07/2024 10:38 AM CDT Body Mass Index 33.38 05/07/2024 10:38 AM CDT Plan of Treatment Health Maintenance Due Date Last Done Comments Albumin Creatinine Ratio, Urine 1967 Colon Cancer Screening-Colonoscopy 1967 Depression Screening 1967 Hemoglobin A1C 1967 Hepatitis C Screening 1967 Prostate Cancer Screening-PSA 1967 Dilated Eye Exam 1967 Foot Exam 1967 Regular Well Visit/Exam 18-64 07/06/1985 Pneumococcal vaccine <65 (2 of 2 - PCV) 03/13/2014 03/13/2013 Zoster Vaccine (1 of 2) 07/06/2017 DTaP/Tdap/Td Vaccine (2 - Td or Tdap) 06/29/2020 06/29/2010, 06/18/2002 eGFR 04/22/2021 04/22/2020 Influenza Vaccine (#1) 2023 2, 12/27/2020, 12/29/2019, Additional history exists Lipid Panel 05/07/2025 05/07/2024, 03/0 08/2023, 03/06/2022, Additional history exists Hepatitis B Screening Completed 04/07/2005 , 05/15/2003, 06/18/2002 Medical Devices Implanted Type Area Golf Course Designer Device Identifier Shelf Expiration Date Model / Serial / Lot Property [employer] [id number] System 6-12fr Mvp Venous Closure Vascade - [id number] - [id number] Implanted:Qty : 1 on 04/22/2020 by Hayder Feldman MD at [facility] Collagen Left: Femoral [employer] 03/03/2022 800-612C- 10U / [id number] / [id number] [employer] [id number] System 6-12fr Mvp Venous Closure Vascade - [id number] - [id number] Implanted:Qty : 1 on 04/22/2020 by Hayder Feldman MD at [facility] Collagen Left: Femoral [employer] 03/03/2022 800-612C- 10U / [id number] / [id number] [employer] [id number] System 6-12fr Mvp Venous Closure Vascade - [id number] - [id number] Implanted:Qty : 1 on 04/22/2020 by Hayder Feldman MD at [facility] Collagen Right: Femoral [employer] 03/03/2022 800-612C- 10U / [id number] / [id number] [employer] [id number] Device Closure Vascade Od5 Fr Femoral Artery - [id number] - [id number] Implanted:Qty : 1 on 04/22/2020 by Hayder Feldman MD at [facility] Collagen Right: Femoral [employer] 11/10/2021 700-500DX -05U / [id number] / [id number] Procedures Procedure Name Priority Date/Time Associated Diagnosis Comments POCT LIPID PANEL Routine 05/07/2024 9:40 AM CDT Coronary artery disease of [place] artery of [place] heart with stable angina pectoris Mixed diabetic hyperlipidemia associated with type 2 diabetes mellitus (CMS/HCC) (HCC) EGFR STAT 04/22/2020 7:23 AM BIRD TRAPPER from Last 3 Months or Most Recently [...] Final Result * eGFR (04/22/2020 7:23 AM BIRD TRAPPER) eGFR 104 mL/min/1.7 3 m2 [facility] Comment: Interpretive Data Reference Interval Normal [...] 2020 Blood specimen (specimen) 04/22/2020 7:23 AM BIRD TRAPPER 04/22/2020 7:23 AM BIRD TRAPPER us Hayder Feldman MD LAB BLOOD ORDERABLES Final Result [facility] [address] Department [place] [address] from Last 3 Months or Most Recently Relevant to Health Maintenance Insurance [facility] CLAIMS [facility] CLAIMS Care Teams Metal Grinder Relationship Specialty Start Date End Date Val Menendez NP [address] [facility] [address] PCP - General Nurse Practitioner 02/10/20 Lisa Carty NP [address] [facility] [address] Nurse Practitioner Cardiology 04/23/20
--- OUTSIDE RECORDS SUMMARY | 2024-05-15 08:21 | XMS_ITS | Data Portability ---
Author Organization [place] [facility], Main Office Address [address] [place] [address] Care Team Providers Care Consumer Services Advisor Name Role Phone VAL BROOKS Primary Care Provider [phone] VAL BROOKS Referring Provider [phone] Assessment Encounter Date Assessment Date Assessment LastModified [...] checked in ED. F/u in 2 weeks. [email or web address] Not available 02/15/2023 10:01:20 04/30/2023 04/30/2023 Assessment: Severe OSAHS, AHI = 36 PLMD Hypoventilation Plan: The following were reviewed and explained to the patient: primary care/referral note [facility] home sleep study 08/18/22 AHI = 36, supine AHI = 60 PAP compliance downloaded and interpreted x 20 minutes. Data reviewed and explained to the patient. Average apnea/hypopnea index (AHI) is 0.5. Patient used PAP > 4 hours 96% of the time. PAP is set at [id number]. PAP will be reset at 11-15 cmH2O. [...] PAP therapy on: Sleep disordered breathing Hypertension MO Atrial fibrillation Educated the patient on sleep [...] further management. Follow-up: 3 months, July 2023 [facility] Not available 04/30/2023 10:16:49 Plan of Treatment Reminders Order Date Submit Date Provider Last Modified By Organization Details Last Modified Time Details Appointments None recorded. Lab None recorded. Referral None recorded. Procedures None recorded. Surgeries None recorded. Imaging XR, thoracic spine, 3 view 2022 023 [facility], [address] [place] [address] , [place], [address], 3 09:06:05 XR, lumbosacral spine, 4 or more view 2022 023 [place] [address] [facility], [address] [place] [address] , [place], [address], 4 10:00:09 home sleep study [address] [facility] [place], [address] [place] [address], [address], 4 12:57:08 Medication Orders cyclobenzap rine 10 mg tablet 2022 023 [facility], [address] [place] [address], [address], 3 09:54:07 allopurinol 100 mg tablet 2022 023 [facility], [address] [place] [address], [address], 3 09:54:07 Medrol (Nick) 4 mg tablets in a dose pack [address], [address] [place] [address], [address], 4 12:53:38 nitroglycer in 0.4 mg sublingual tablet 2022 023 [facility], [address] [place], [address], 3 10:43:24 Patient TargetsNo targets recorded. Patient Instructions Encounter Date Encounter Id Patient Instructions Last Modified By Organization Details Last Modified Time 06/08/2022 [id number] Fu Prn [email or web address] Not available 06/08 10:36:08 [...] 2016, 39(Aguiar ppl.1 ):s13 -[id number] Not Available [facility] (Lab) [address] [place], [address], 02/09/2022 22:31:56 02/10/20 22 02/09/2022 PSA SCREE N PSA medicare screen 1.06 NG/mL 0.00-4 .00 Not Available [facility] (Lab) [address] [place], [address], 02/09/2022 21:58:48 02/10/20 22 02/09/2022 TSH W/REF DEEPTI FT4 TSH with reflex free T4 1.030 uIU/m L 0.465- 4.680 Not Available [facility] (Lab) [address] [place], [address], 02/09/2022 21:58:46 02/10/20 22 02/09/2022 COMPR EHENS LEANDRA METAB OLIC PANEL sodium 135 mmol/ L 137-14 5 low Not Available [facility] (Lab) [address] [place], [address], 02/09/2022 21:47:10 02/10/20 22 02/09/2022 COMPR EHENS LEANDRA METAB OLIC PANEL potassium 4.1 mmol/ L 3.5-5. 1 Not Available [facility] (Lab) [address] [place], [address], 02/09/2022 21:47:10 02/10/20 22 02/09/2022 COMPR EHENS LEANDRA METAB OLIC PANEL chloride 102 mmol/ L 98-107 Not Available [facility] (Lab) [address] [place], [address], 02/09/2022 21:47:10 02/10/20 22 02/09/2022 COMPR EHENS LEANDRA METAB OLIC PANEL carbon dioxide 25 mmol/ L 22-30 Not Available [facility] (Lab) [address] [place], [address], 02/09/2022 21:47:10 02/10/20 22 02/09/2022 COMPR EHENS LEANDRA METAB OLIC PANEL anion gap 12.1 mmol/ L 14-22 low Not Available [facility] (Lab) [address] [place], [address], 02/09/2022 21:47:10 02/10/20 22 02/09/2022 COMPR EHENS LEANDRA METAB OLIC PANEL glucose 110 mg/dL 70-99 high Not Available [facility] (Lab) [address] [place], [address], 02/09/2022 21:47:10 02/10/20 22 02/09/2022 COMPR EHENS LEANDRA METAB OLIC PANEL BUN 11 mg/dL 8-19 Not Available [facility] (Lab) [address] [place], [address], 02/09/2022 21:47:10 02/10/20 22 02/09/2022 COMPR EHENS LEANDRA METAB OLIC PANEL creatinine 0.64 mg/dL 0.66-1 .25 low Not Available [facility] (Lab) [address] [place], [address], 02/09/2022 21:47:10 02/10/20 22 02/09/2022 COMPR EHENS LEANDRA METAB OLIC PANEL GFR >60 Refer ence Range : [place] ge GFR Healt hy Adult : >60 [...] calcu lator is avail able on the [facility] websi te: https ://tray w.juvenal cannon.o rg/pr kennyess ional s/kdo qi/gf r_cal culat or Not Available [facility] (Lab) [address] [place], [address], 02/09/2022 21:47:10 02/10/20 22 02/09/2022 COMPR EHENS LEANDRA METAB OLIC PANEL alkaline phosphatase 85 U/L 38-126 Not Available [facility] (Lab) [address] [place], [address], 02/09/2022 21:47:10 02/10/20 22 02/09/2022 COMPR EHENS LEANDRA METAB OLIC PANEL alanine aminotransfe rase 58 U/L 0-50 high Not Available [facility] (Lab) [address] [place], [address], 02/09/2022 21:47:10 02/10/20 22 02/09/2022 COMPR EHENS LEANDRA METAB OLIC PANEL aspartate aminotransfe rase 47 U/L 15-46 high Not Available [facility] (Lab) [address] [place], [address], 02/09/2022 21:47:10 02/10/20 22 02/09/2022 COMPR EHENS LEANDRA METAB OLIC PANEL bilirubin, total 0.80 mg/dL 0.20-1 .30 Not Available [facility] (Lab) [address] [place], [address], 02/09/2022 21:47:10 02/10/20 22 02/09/2022 COMPR EHENS LEANDRA METAB OLIC PANEL calcium 9.3 mg/dL 8.4-10 .2 Not Available [facility] (Lab) [address] [place], [address], 02/09/2022 21:47:10 02/10/20 22 02/09/2022 COMPR EHENS LEANDRA METAB OLIC PANEL total protein 7.8 g/dL 6.3-8. 2 Not Available [facility] (Lab) [address] [place], [address], 02/09/2022 21:47:10 02/10/20 22 02/09/2022 COMPR EHENS LEANDRA METAB OLIC PANEL albumin 4.6 g/dL 3.4-5. 0 Not Available [facility] (Lab) [address] [place], [address], 02/09/2022 21:47:10 02/10/20 22 02/09/2022 COMPR EHENS LEANDRA METAB OLIC PANEL globulin 3.2 g/dL 2.6-4. 2 Not Available [facility] (Lab) [address] [place], [address], 02/09/2022 21:47:10 02/10/20 22 02/09/2022 COMPR EHENS LEANDRA METAB OLIC PANEL A/G ratio 1.4 ratio 1.0-2. 0 Not Available [facility] (Lab) [address] [place], [address], 02/09/2022 21:47:10 02/10/20 22 02/09/2022 LIPID PANEL cholesterol 200 mg/dL 140-19 9 high NIH WILLIS NSUS RECOM MENDA TION FOR SALTY STERO L: ADULT CHILD LOW RISK: <200 <170 BORDE RLINE : <200- 239 ----- HIGH RISK: >240 >200 Not Available [facility] (Lab) [address] [place], [address], 02/09/2022 21:47:01 02/10/20 22 02/09/2022 LIPID PANEL triglyceride s 67 mg/dL 0-150 NIH WILLIS NSUS REPOR T RECOM MENDA TION FOR TRIGL YCERI ANTHONY: ADULT CHILD LOW RISK: <150 ----- BODER LINE: 150-1 99 ----- HIGH RISK: >200 ----- Not Available [facility] (Lab) [address] [place], [address], 02/09/2022 21:47:01 02/10/20 22 02/09/2022 LIPID PANEL HDL cholesterol 57 mg/dL 40- Not Available [facility] (Lab) [address] [place] [address], [address], 02/09/2022 21:47:01 02/10/20 22 02/09/2022 LIPID PANEL [...] WILL NOT BE REPOR EVE. Not Available [facility] (Lab) [address] [place], [address], 02/09/2022 21:47:01 02/10/20 22 02/09/2022 CBC/C OMPLE TE BLD COUNT W/DIF F white blood cells 5.0 x10'3 /uL 4.2-10 .8 Not Available [facility] (Lab) [address] [place], [address], 02/09/2022 21:21:24 02/10/20 22 02/09/2022 CBC/C OMPLE TE BLD COUNT W/DIF F red blood cells 5.20 x10'6 /uL 4.10-5 .80 Not Available [facility] (Lab) [address] [place], [address], 02/09/2022 21:21:24 02/10/20 22 02/09/2022 CBC/C OMPLE TE BLD COUNT W/DIF F hemoglobin 15.8 g/dL 13.2-1 7.0 Not Available [facility] (Lab) [address] [place], [address], 02/09/2022 21:21:24 02/10/20 22 02/09/2022 CBC/C OMPLE TE BLD COUNT W/DIF F hematocrit 48.2 % 39.3-5 0.0 Not Available [facility] (Lab) [address] [place], [address], 02/09/2022 21:21:24 02/10/20 22 02/09/2022 CBC/C OMPLE TE BLD COUNT W/DIF F mean red cell volume 92.7 fL 80.0-9 7.0 Not Available [facility] (Lab) [address] [place], [address], 02/09/2022 21:21:24 02/10/20 22 02/09/2022 CBC/C OMPLE TE BLD COUNT W/DIF F mean red cell hemoglobin 30.4 pg 27.0-3 3.0 Not Available [facility] (Lab) [address] [place], [address], 02/09/2022 21:21:24 02/10/20 22 02/09/2022 CBC/C OMPLE TE BLD COUNT W/DIF F mean RBC HGB concentratio n 32.8 g/dL 31.0-3 6.0 Not Available [facility] (Lab) [address] [place], [address], 02/09/2022 21:21:24 02/10/20 22 02/09/2022 CBC/C OMPLE TE BLD COUNT W/DIF F red cell distribution width 12.7 % 11.8-1 5.5 Not Available [facility] (Lab) [address] [place], [address], 02/09/2022 21:21:24 02/10/20 22 02/09/2022 CBC/C OMPLE TE BLD COUNT W/DIF F platelets 196 x10'3 /uL 150-40 0 Not Available [facility] (Lab) [address] [place], [address], 02/09/2022 21:21:24 02/10/20 22 02/09/2022 CBC/C OMPLE TE BLD COUNT W/DIF F mean platelet volume 11.1 fL 9.0-12 .4 Not Available [facility] (Lab) [address] [place], [address], 02/09/2022 21:21:24 02/10/20 22 02/09/2022 CBC/C OMPLE TE BLD COUNT W/DIF F neutrophils 50.5 % 39.0-7 2.0 Not Available [facility] (Lab) [address] [place], [address], 02/09/2022 21:21:24 02/10/20 22 02/09/2022 CBC/C OMPLE TE BLD COUNT W/DIF F lymphocytes 30.2 % 16.0-4 7.0 Not Available [facility] (Lab) [address] [place], [address], 02/09/2022 21:21:24 02/10/20 22 02/09/2022 CBC/C OMPLE TE BLD COUNT W/DIF F monocytes 16.3 % 5.0-12 .0 high Not Available [facility] (Lab) [address] [place], [address], 02/09/2022 21:21:24 02/10/20 22 02/09/2022 CBC/C OMPLE TE BLD COUNT W/DIF F eosinophils 1.8 % 1.0-7. 0 Not Available [facility] (Lab) [address] [place], [address], 02/09/2022 21:21:24 02/10/20 22 02/09/2022 CBC/C OMPLE TE BLD COUNT W/DIF F basophils 1.0 % 0.0-2. 0 Not Available [facility] (Lab) [address] [place], [address], 02/09/2022 21:21:24 02/10/20 22 02/09/2022 CBC/C OMPLE TE BLD COUNT W/DIF F immature granulocytes 0.2 % 0.00-0 .50 Not Available [facility] (Lab) [address] [place], [address], 02/09/2022 21:21:24 02/10/20 22 02/09/2022 CBC/C OMPLE TE BLD COUNT W/DIF F neutrophils, absolute count 2.54 x10'3 /uL 1.5-8. 0 Not Available [facility] (Lab) [address] [place], [address], 02/09/2022 21:21:24 02/10/20 22 02/09/2022 CBC/C OMPLE TE BLD COUNT W/DIF F lymphocytes, absolute count 1.52 x10'3 /uL 1.07-3 .43 Not Available [facility] (Lab) [address] [place], [address], 02/09/2022 21:21:24 02/10/20 22 02/09/2022 CBC/C OMPLE TE BLD COUNT W/DIF F monocytes, absolute count 0.82 x10'3 /uL 0.29-0 .99 Not Available [facility] (Lab) [address] [place], [address], 02/09/2022 21:21:24 02/10/20 22 02/09/2022 CBC/C OMPLE TE BLD COUNT W/DIF F eosinophils, absolute count 0.09 x10'3 /uL 0.02-0 .53 Not Available [facility] (Lab) [address] [place], [address], 02/09/2022 21:21:24 02/10/20 22 02/09/2022 CBC/C OMPLE TE BLD COUNT W/DIF F basophils, absolute count 0.05 x10'3 /uL 0.01-0 .08 Not Available [facility] (Lab) [address] [place], [address], 02/09/2022 21:21:24 02/10/20 22 02/09/2022 CBC/C OMPLE TE BLD COUNT W/DIF F immature granulocytes ,absolute 0.01 x10'3 /uL 0.00-0 .05 Not Available [facility] (Lab) [address] [place], [address], 02/09/2022 21:21:24 02/10/20 22 02/09/2022 CBC/C OMPLE TE BLD COUNT W/DIF F nucleated red blood cells 0.0 % -0 Not Available [facility] (Lab) [address] [place], [address], 02/09/2022 21:21:24 02/10/20 22 02/09/2022 CBC/C OMPLE TE BLD COUNT W/DIF F NRBC# 0.00 x10'3 /uL Not Available [facility] (Lab) [address] [place], [address], 02/09/2022 21:21:24 08/24/19 23 08/18/2022 home sleep study No observ ation record ed. [email or web address] [facility] [place] [address] [place], [address], 08/29/2022 11:20:20 Result Notes None recorded. Problems Name Problem SNOMED Code Status Onset Date Resolution Date Notes Provider Name and Address Organization Details Recorded Time Obstructive sleep apnea syndrome 04764944 Active 2022 Halima Matos, [facility]- [address], [place], [address] , [employer] 3 17:12:35 Chronic back pain 440492330 Active 2022 Van Valente MD [address], [place], [address] , [employer] 3 09:50:34 Gouty arthropathy 541834066 Active 2022 Van Valente MD [address], [address], [place], [address] , [employer] 3 09:51:36 Obesity 633741822 Active 2022 Van Valente MD [address] [place], [address] , [employer] 3 09:54:14 Stable angina 474851462 Active 2018 Not Available [facility] 3 04:49:03 Vertigo 766954796 Active 2021 Not Available [facility] 3 04:49:03 Atrial fibrillation 08825897 Active 2019 Not Available [facility] 3 04:49:03 Hyperlipidemi a 72649977 Active 2019 Not Available [facility] 3 04:49:03 Essential hypertension 22903605 Active 2018 Not Available [facility] 3 04:49:03 Notes:Medical History: Verti go Bruxism Obesity with severe OSAHS, AHI = 36, 08/18/22, on CPAP c/o [employer] Hypertension Hyperlipidemia T2DM CAD s/p [place] Atrial fibrillation on Xarelto Transaminitis Gout Low back pain Procedure History: Cardiac catheterizations 2005, 2016 Left knee debridements 2010, 2016 Right wrist lipoma excision 2015 Atrial fibrillation ablation 2021 Occupational History: Retired [employer] Problem Notes None recorded. Procedures Surgical History Date Name Laterality Status Provider Name and Address Organization Details Recorded Time 09/23/19 colonoscopy completed Val Brooks NP [address] [facility], [address], [address], [facility] [employer] 09/22/2022 11:26:24 02/26/19 21 procedure on heart completed Val Nguyen RN [facility] 06/08/2022 10:09:29 02/26/19 18 colonoscopy completed Not Available [facility] 04/27/19 04:43:10 Knee arthroscopy/sophia abhijeet completed Not Available [facility] 04/26/2022 04:43:10 Imaging Results Imaging Date Name Status LastModified by Organiz [facility] Details LastModified Time 08/18/2022 home sleep study completed [email or web address] [facility] [address] [place], [address], 08/29/2022 11:20:20 Procedure Notes None recorded. Medical [...] administ ered by the provider 06/08 completed [facility]: [id number] 06-15 Not Available Not Available Not [...] 20 mg capsule TAKE 1 CAPSULE DAILY 2024 active Not Available Not Available Not Avai [...] % 68 /min 16 /min 98.2 [degF] 534439. 8 g 130 mm[Hg] 78 mm[Hg] Not Available [employer] 3 04:46:14 Date Recorded Body height Body mass index (BMI) Body weight Body temperature Heart rate Respiratory rate Oxygen saturation Oxygen saturation in Arterial blood by Pulse oximetry Pain severity - 0-10 verbal numeric rating [Score] - Reported Systolic blood pressure Diastolic blood pressure Provider Name and Address Organization Details Last Updated DateTime 3 182.88 cm 32.4 kg/m2 628455. 63 g 97.8 [degF] 61 /min 16 /min 98 % 98 % 6 158 mm[Hg] 98 mm[Hg] Val Nguyen RN [facility] 3 10:08:01 Date Recorded Body height Body weight Body temperature Heart rate Oxygen saturation Oxygen saturation in Arterial blood by Pulse oximetry Systolic blood pressure Diastolic blood pressure Provider Name and Address Organization Details Last Updated DateTime 3 182.88 cm 510824. 72 g 98.3 [degF] 69 /min 99 % 99 % 130 mm[Hg] 90 mm[Hg] Rupa Green RN [facility] 3 16:26:09 Date Recorded Body height Body mass index (BMI) Body weight Body temperature Heart rate Oxygen saturation Oxygen saturation in Arterial blood by Pulse oximetry Systolic blood pressure Diastolic blood pressure Provider Name and Address Organization Details Last Updated DateTime 3 182.88 cm 33.7 kg/m2 318832. 31 g 98.2 [degF] 66 /min 98 % 98 % 136 mm[Hg] 88 mm[Hg] Abhishek Bernabe [employer] [facility] 3 09:44:00 Date Recorded Body height Body mass index (BMI) Body weight Body temperature Heart rate Oxygen saturation Oxygen saturation in Arterial blood by Pulse oximetry Systolic blood pressure Diastolic blood pressure Provider Name and Address Organization Details Last Updated DateTime 4 182.88 cm 36.5 kg/m2 809915. 35 g 97.8 [degF] 60 /min 97 % 97 % 138 mm[Hg] 86 mm[Hg] Nohelia Grayson MA [employer] [facility] 4 09:43:23 Date Recorded Heart rate Respiratory rate Provider N jose a and Address Organization Details Last Updated DateTime 04/30/2023 60 /min 15 /min Servando Saenz MD [address] [place] [address], [address], [employer] [facility] 04/30/2023 10:18:44 Social History Question Answer Notes LastModified by Organizat ion Details LastModified Time Tobacco Smoking Status Never Smoker Not Available [employer] 04/26/2022 04:41:36 Do You Have An Advance Directive? No [id number] Information not available 04/26/2022 What Is Your Level Of Alcohol Consumption? Moderate [id number] Information not available 04/26/2022 Is Blood Transfusion Acceptable In An Emergency? Yes Information not available 06/08/2022 What Is Your Level Of Caffeine Consumption? Moderate 3 Cups Of Coffee A Day Information not available 06/08/2022 What Is Your Code Status? Full Code [id number] Information not available 04/26/2022 In The 14 Days Before Symptom Onset, Have You Had Close Contact With A Laboratory-confi rmed COVID-19 While That Case Was Ill? No [id number] Information not available 04/26/2022 In The 14 Days Before Symptom Onset, Have You Had Close Contact With A Person Who Is Under Investigation For COVID-19 While That Person Was Ill? No MIGRATION.91954 [id number] Information not available 04/26/2022 What Type Of Diet Are You Following? REGULAR MIGRATION.90162 67740 Information not available 04/26/2022 Which Illicit Or Recreational Drugs Have You Used? MJ 5 Times Weekly Information not available 06/08/2022 Do You Have An Electrostatic Air Filter? No Information not available 04/30/2023 Have There Been Any Changes To Your Family Or Social Situation? No [id number].[id number] Information not available 04/26/2022 Do You Have A Humidifier? No Information not available 04/30/2023 Do You Use Insect Repellent Routinely? Yes MIGRATION.66089 [id number] Information not available 04/26/2022 [facility] MIGRATION.23263 [address] Information not available 04/26/2022 Do You Have A Medical Power Of Auto Clutch Specialist? No MIGRATION.75465 05912 Information not available 04/26/2022 Do You Have Moisture Problems In Your Home? No Information not available 04/30/2023 What Was The Date Of Your Most Recent Tobacco Screening? 04/30/2023 Information not available 04/30/2023 How Many Children Do You Have? 0 Information not available 06/08/2022 Do You Have Any Pets? Yes MIGRATION.30043 [id number] Information not available 04/26/2022 What Is Your Relationship Status? Domestic Partner MIGRATION.35263 [id number] Information not available 04/26/2022 Do You Use Your Seat Belt Or Car Seat Routinely? Yes Information not available 06/08/2022 Do You Have Smoke And Carbon Monoxide Detectors In Your Home? Yes MIGRATION.85284 [id number] Information not available 04/26/2022 Are You Passively Exposed To Smoke? No MIGRATION.76902 [id number] Information not available 04/26/2022 Are There Any Smokers In Your House? No MIGRATION.10732 23543 Information not available 04/26/2022 Do You Participate In Social [employer] Yes Information not available 06/08/2022 Do You Feel Stressed (tense, Restless, Nervous, Or Anxious, Or Unable To Sleep At Night)? [id number] Information not available 06/08/2022 Do You Use Any Illicit Or Recreational Drugs? Yes Information not available 06/08/2022 Do You Use Sunscreen Routinely? Yes MIGRATION.07449 [id number] Information not available 04/26/2022 Have You Recently Traveled Abroad? No MIGRATION.30981 88550 Information not available 04/26/2022 Have You Used IV Drugs? No Information not available 06/08/2022 Are You Currently In School? No MIGRATION.11682 [id number] Information not available 04/26/2022 Do You Have Any Dietary Restrictions? No MIGRATION.35379 91866 Information not available 04/26/2022 Sex: Unknown Functional Status Question Answer Note LastModified by Organization D etails LastModified Time What is your exercise level? None Information not available 06/08/2022 Mental Status None recorded. Family History Relationship Description Onset Age of this Age Resolved Age Notes LastModified by Organization Details LastModified Time Father Heart disease [id number] Not available 04/26/2022 04:43:14 Father Family history of stroke [id number].[id number] Not available 04/26/2022 04:43:14 Father Hypertensive disorder [id number] Not available 04/26/2022 04:43:14 Father Diabetes mellitus [id number] [id number] Not available 04/26/2022 04:43:14 Notes:Father in 1999, age 67. Medical History Condition Response MYOCARDIAL INFARCTION Y ARTHRITIS Y ATRIAL FIBRILLATION Y Immunizations Vaccine Type Date Status Note Provider Nam e and Address Organization Details Recorded Time SARS-COV-2 (COVID-19) vaccine, UNSPECIFIED 2 completed Not Available [facility] 04/26/2022 04:56:23 influenza, unspecified formulation 2 completed Not Available [facility] 04/26/2022 04:56:23 Influenza, split virus, quadrivalent, PF 0 completed Not Available [facility] 04/26/2022 04:56:23 Influenza, split virus, quadrivalent, PF 1 completed Not Available [facility] 04/26/2022 04:56:24 Influenza, split virus, quadrivalent, PF 9 completed Not Available [facility] 04/26/2022 04:56:24 Past Encounters Encounter ID Performer Location Encounter Start Date Encounter Closed Date Diagnosis/Indication Diagnosis SNOMED-CT Code Diagnosis ICD10 Code Diagnosis Note [id number] [facility] [address] [address] 08/18/2020 00:00:00 08/18/2020 08:28:41 [id number] [facility] [address] [address] 11/16/2020 00:00:00 11/16/2020 15:01:07 [id number] S[facility] [address] [address] 12/27/2020 00:00:00 12/27/2020 16:57:35 [id number] [facility] [address] [address] 05/04/2021 00:00:00 05/04/2021 09:14:38 [id number] [facility] [address] [address] 10/14/2021 00:00:00 10/14/2021 08:23:12 [id number] [facility] [place] [address] [place] [address] 11/09/2021 00:00:00 11/27/2021 15:13:[id number] [address] 02/09/2022 00:00:00 02/09/2022 09:40:54 [id number] Val Brooks NP [address] [address] 06/08/2022 09:56:22 06/08/2022 10:41:23 Sleep apnea [id number] G47.30 States CPAP machine is leaking at the [facility]. lee study > 5 years ago. Was prob 15 years ago.CPAP machine is about 10 years ago. Using [employer] for CPAP supplies currently. Pt lives in [place] so [place] or [place] are ok locations. Screening for malignant neoplasm of colon [id number] Z12.11 GI referral for colonoscop y.2019 had 12 polyps removed. Chest pain 57144064 R07. 9 nitro tablets for prn use. [id number] Halima Matos, TIME STUDY STATISTICIAN-BC [facility] Pulmonolo gy [place] [address] [place] [address] 10/17/2022 16:18:21 10/17/2022 17:21:33 Obstructive sleep apnea syndrome 09890848 G47.33 I do not have old study, [...] for OV between 31 and 90 days. [id number] Van Valente MD [facility] [address] [place] [address] 02/15/2023 09:36:41 02/15/2023 10:19:16 Acute gout [id number] M10.9 Chronic back pain 713878 002 G89.29 Middle and lower Gouty arthropathy 320464 008 M10.09 Thoracic back pain 14296 8004 M54.6 Obesity 428801565 E66.9 Atrial fibrillation 4943 6004 I48.91 Hyperlipidemia 25933279 E78.5 [id number] Servando Saenz MD [facility] Pulmonolo gy [address] [address] 04/30/2023 09:26:56 05/01/2023 08:42:21 Obstructive sleep apnea syndrome 23662759 G47.33 Health Concerns Section Related Observation LastModified [...] - [facility] ( - PPO) Dario Hammond [id number] Dario Hammond 10/17/2022 1 EAST - DOS PRIOR TO 2024 - [employer] - [facility] ( - PPO) Dario Hammond [id number] Dario Hammond 02/15/2023 1 EAST - DOS PRIOR TO 2024 - [employer] - [facility] ( - PPO) Dario Hammond [id number] Dario Hammond 04/30/2023 1 EAST - DOS PRIOR TO 2024 - [employer] - [facility] ( - PPO) Dario Hammond [id number] Dario Hammond Notes Date Note Type Note [...] 2018. Due for Val Brooks NP [address], [place], [address], [employer] 06/08/2022 10:40:06 10/17/2022 text/html Mr Hammond present [...] and testingReviewed medications and allergies Halima Matos, TIME STUDY STATISTICIAN-BC [address], [place], [address], [employer] 10/17/2022 22:31:33 02/15/2023 text/html ACV: C/o Lt great toe area pain and swelling for last 1.5 weeks. Pt has similar symptoms over his Rt foot last month and now its getting better. Denies any fall/trauma/injury. C/o chronic middle and low back area pain and stiffness for last many years. But for last few months, its bothering him more. Denies any workman's comp. Van Valente, MD [address], [place], [address], [place] [facility] 02/15/2023 10:02:41 04/30/2023 text/html Primary care/Ref erring [...] slight chance of dozing. Servando Saenz MD [address] [place] [address], [phone], [facility] 04/30/2023 10:24:58
[2024-05-15 08:56] LABS: Estimated Glomerular Filt Rate > 60
== END 2024-05-15 08:15 | disposition home or self-care (01) ==
PROVIDERS: PCP Nurse Practitioner Family; Visit Provider Internal Medicine Cardiovascular Disease
DX: I71.20 Thoracic aortic aneurysm, without rupture, unspecified (principal)
CPT/HCPCS: 71275; Q9967